=== PATIENT | male | born 1980 | race Caucasian/White ===

== ENCOUNTER → 2018-10-05 | Outpatient (CLI) | payer OTHER, SELFPAY ==
--- NOTE | 2018-10-05 | LES_PTH ---
PATIENT: VERÓNICA ALVARENGA [facility] U#:[id number] AGE/SX: 37/M ROOM: RE10/05/[address]: Dr. Juan Humphreys MD : 1980 BED: DIS: 10/05/2018 SPEC #: [id number] RECD: 10/05/18 16:33 STATUS: ADRI REMore #: [id number] AMEENA: 10/05/18 00:[address]: Juan Humphreys DEPT: SURGICAL PATHOLOGY RECD BY: Kar Rodriguez ENTERED: 10/06/18 10:21 SP TYPE: Lesion OTHR DR: No Primary Care Phys Tissues: Scalp, NOS Procedures: Surgery Specimen Level III HEADER OPERATION: Excision left scalp lesion PRE-OP DIAGNOSIS: Left scalp lesion TISSUE SUBMITTED: Left scalp tissue MICROSCOPIC DIAGNOSIS Left scalp tissue, biopsy: Trichilemmal cyst, pilar cyst. AM:yvette 10/07/18 MICROSCOPIC DESCRIPTION Slides are reviewed. GROSS DESCRIPTION Received in fixative is one container labeled with the patient's name and designated left scalp. The specimen consists of an ellipse of light mireles excised skin measuring 1.5 x 0.5 cm and a depth of excision measuring 0.6 cm. The specimen is inked, serially sectioned and totally submitted in one cassette. / AM:yvette 10/06/18 TC:1 CPT: 83407
[2018-10-05 13:31] VITALS: BMI 27.9
== END | disposition home or self-care (01) ==
LOC: LABSPEC 16:52
PROVIDERS: Referring Provider Surgery; Visit Provider Surgery
DX: L98.9 Disorder of the skin and subcutaneous tissue, unspecified (principal)
CPT/HCPCS: 88304; 88305

== ENCOUNTER 2021-02-03 12:32 | Emergency (ER) | payer OTHER, SELFPAY ==
[2021-02-03 12:33] VITALS: BP 151/95; PULSE 101; RESP 16; TEMP 36.4; O2SAT 95; BMI 26.6
[2021-02-03 14:27] VITALS: BP 154/76; PULSE 93; RESP 25; O2SAT 90
[2021-02-03 14:28] VITALS: RESP 28; O2SAT 92
--- NOTE | 2021-02-03 14:30 | RAD_ITS ---
STUDY: X-RAY CHEST REASON FOR EXAM: Male, 40 years old. Cough and fever. Decreased pulse oximetry. Recent Covid with the diagnosis. TECHNIQUE: Single AP portable view of the chest. COMPARISON: None. FINDINGS: EKG electrodes are seen. Patchy bibasilar pulmonary infiltrates. Follow-up is recommended. There is no demonstrated pleural abnormality. Normal size heart. Normal mediastinum and lukasz. Normal visualized pulmonary arteries. Normal visualized aortic arch and descending thoracic aorta. Normal visualized thoracic spine. Normal visualized ribs, clavicles, and shoulders. There is no demonstrated abnormality of the visualized soft tissue structures of the upper abdomen. RAD/Chest 1 View (Portable) IMPRESSION: Patchy bibasilar pulmonary infiltrates. Electronically Signed: Fito Price MD at 14:55 EDT , Service support ,
--- NOTE | 2021-02-03 15:34 | EX.ED.VIS.UR ---
HPI HPI - URI History of Present Illness Chief Complaint: Shortness of Breath Narrative Narrative: Patient on day 6 of Covid symptoms. He noted his pulse ox was 89% while resting at home. He does not have any chest pain and does not have shortness of breath. His highest fever was 101 ?F. This was a few days ago. He states he has no medical problems. He has some slight nausea but has been drinking a lot of fluids and is making urine. He has no abdominal pain. He has had a couple episodes of diarrhea. No urinary symptoms. ROS ROS ED Constitutional Constitutional ED: Reports fever(s); Denies chills or sweats Eyes Eyes: Denies blurry vision or diplopia ENT ENT ED: Denies rhinorrhea or sore throat Cardiovascular Cardiovascular: Denies chest pain or palpitations Respiratory/Chest Respiratory/Chest: Reports cough; Denies dyspnea, dyspnea on exertion or sputum Gastrointestinal Gastrointestinal: Reports diarrhea and nausea; Denies abdominal pain or vomiting Genitourinary Genitourinary ED: Denies dysuria or hematuria Musculoskeletal Musculoskeletal: Denies arthralgias or myalgias Integumentary Denies Abrasions or rash Neurologic Neurologic: Denies headache(s) or paresthesias PFSH PFSH Medical History Scalp cyst Skin lesion Home Medications NK 09/22/18 [History Last Taken Unknown] dexamethasone 6 mg PO DAILY #7 tab 02/03/21 [Rx Last Taken Unknown] ondansetron 4 mg PO Q8H PRN PRN #20 tab 02/03/21 [Rx Last Taken Unknown] Allergy/AdvReac Type Severity Reaction Status Date / Time No Known Allergies Allergy Verified 02/03/21 12:36 Family History Father Diabetes Surgical History History of wisdom tooth extraction Social History Smoking Status: Never smoker alcohol intake: current alcohol intake frequency: a few times a month substance use type: does not use EXAM Physical Exam Const Vital Signs: 02/03/21 12:33 02/03/21 14:27 02/03/21 14:28 Temperature 97.6 F L Temperature Source Temporal Pulse Rate 101 H 93 Respiratory Rate 16 25 H 28 H Respiratory Effort Short of Breath Labored Blood Pressure 151/95 H 154/76 H Blood Pressure Mean 113 102 Pulse Ox 95 90 92 Oxygen Delivery Method Room Air Room Air Room Air Positive well nourished General Appearance ED: NAD; Negative for pallor HEENT normocephalic and atraumatic Eyes PERRL and EOMs intact bilaterally Resp normal respiratory effort and clear to auscultation bilaterally Cardio Rate: tachycardic Rhythm: regular rhythm Extremity normal to inspection; Negative for full ROM General Extremety ED: Negative for cyanosis General Extremity: Negative for cyanosis Neuro oriented x3, CN's II-XII intact bilaterally and no sensory deficits noted Sensorium / Orientation: alert Motor Exam: strength 5/5 throughout Psych mental status grossly normal Skin General Skin Exam: Negative for jaundice or pallor Rashes: no rashes MDM MDM MDM Narrative Medical decision making narrative: Patient presenting with Covid symptoms. He states his pulse ox went down to 89 at home while resting. Today in the ED he has been mostly in the 90s. He had one episode while sitting in bed where he dropped to 88%. I did ambulate him at the bedside and he did drop to 88% after walking. He states that he is not short of breath even with ambulation. He is not have any chest pain. Patient is eating and drinking normally. I will place the patient on dexamethasone and given albuterol inhaler. He will be set up for home O2. Patient is given instructions for care and return precautions. Impression: 1. COVID-19 pneumonitis 2. Nausea 3. Hypoxia with ambulation Radiography Diagnostic Testing: Radiology Impression Chest X-Ray 02/03/21 14:30 IMPRESSION: Patchy bibasilar pulmonary infiltrates. Electronically Signed: Fito Price MD at 14:55 EDT , Service support , Discharge Plan Triage Chief Complaint: Shortness of Breath ED Provider: Roberto Carlson Dx/Rx/DC Orders Instructions: Coronavirus Disease 2019 (COVID-19): Caring for Yourself or Others Prescriptions: New ondansetron 4 mg tablet,disintegrating 4 mg PO Q8H PRN PRN (Reason: Nausea) Qty: 20 RF: 0 dexamethasone 6 mg tablet 6 mg PO DAILY Qty: 7 RF: 0 No Action NK RF: 0 Primary Care Provider: Stanislaw Cm Referrals: Stanislaw Cm MD [Primary Care Provider] - Disposition Disposition: Home, Self Care
[2021-02-03 16:00] VITALS: O2SAT 89
[2021-02-03] MEDS: Ondansetron ODT 4 MG Tablet PO (16:35)
[2021-02-03] MEDS: dexAMETHasone 4 MG Tablet 6 MG PO (16:35)
[2021-02-03 16:36] VITALS: O2SAT 94
--- NOTE | 2021-02-03 16:42 | CM.UR ---
LANETTE Note Referral Source: MD Referral Reason: Home Oxygen LANETTE completed [facility] Home oxygen script and necessary paperwork and faxed it to [facility]. MD signed it and completed oxygen levels. LANETTE called and left voice mail for Ayse at [facility]. Ayse said that [facility] will bring oxygen to the ED and 2 extra tanks. LANETTE updated RN. LANETTE sent email out advising of patient being new oxygen to hospital staff. Plan: Home with Oxygen Yuki CABEZAS
[2021-02-03 16:45] VITALS: O2SAT 93
--- NOTE | 2021-02-04 12:08 | CASEMGMT ---
RN KAVIN ED COVID Home O2 Follow-up: This RN CM attempted to contact pt via phone in follow-up to discharge with home O2. Non-identifying voicemail received. Nondescript message left requesting a return call. Brayden Clark RN CM
--- NOTE | 2021-02-04 12:19 | CASEMGMT ---
[facility] ED COVID Home O2 Follow-up: Pt returned this RN KAVIN's call. Pt states he is doing pretty well. Pt reports to be wearing the O2 and his PO to be 96%. Pt states he did increase it to 3-4l/min because his PO was reading lower, but states when he used a different PO monitor it was ok. Pt states he plans to turn it back to 2l/min. Pt denies any SOB but c/o a frequent cough especially with talking. Noted pt to have a frequent dry cough during our conversation. Pt states he is drinking well but that eating is difficult as he doesn't feel like eating and it is difficult to swallow harder foods. Pt states his made him a smoothy with protein and states to be able to tolerate jello, bananas and other soft foods. Pt states he has not been able to quarantine from his family due to their house being small. Pt states his daughter has already had COVID. Encouraged pt to wipe surfaces frequently and pt states he is washing his hands often also. Pt reports he did obtain his prescriptions but has not made his follow-up appointment with Dr. Rueda. Encouraged pt to do so and explained the importance of follow-up. Pt agreeable to calling to schedule an appointment. Pt denies any questions or concerns at this time. Brayden Clark RN CM
--- NOTE | 2021-02-05 15:09 | CASEMGMT ---
[facility] ED COVID Home O2 Follow-up: This [facility] contacted pt via phone for further follow-up. Pt states he is feeling much better as indicated by a decrease in his cough and ability to keep his PO 93-95% with the O2 nasal prongs not directly in his nose but just below his nose. Pt expressed a desire to wean himself off of the O2. Encouraged pt to keep his PO in the 90's. Pt states he is also decreasing the frequency of his albuterol treatments from q4h to q6h. States he continues to struggle to eat due to nausea. Encouraged pt to eat small frequent meals which he states he is doing and states he is currently sipping on a smoothie. Pt states he has called Dr. Cm's office and gave them an update on how he is doing but they did not schedule a follow-up appointment. Pt denies any current questions or concerns at this time. Brayden Clark RN CM
== END 2021-02-03 16:55 | disposition home or self-care (01) ==
PROVIDERS: Emergency Provider Student in an Organized Health Care Education/Training Program; PCP Family Medicine
DX: U07.1 COVID-19 (principal); J12.82 Pneumonia due to coronavirus disease 2019; R11.0 Nausea; R09.02 Hypoxemia
CPT/HCPCS: 71045; 94640; 94760; 99283; A4216; J2405

== ENCOUNTER 2021-02-06 10:47 | Inpatient (IN) | payer OTHER, SELFPAY ==
[2021-02-06] VITALS (23 sets, daily range): BP systolic 110–146; BP diastolic 75–101; PULSE 65–83; RESP 18–31; TEMP 36.4–37.4; O2SAT 84–98; BMI 29.4; BMI 27.2
--- NOTE | 2021-02-06 11:23 | EKG12_ITS ---
Test Reason : SOB Blood Pressure : / mmHG Vent. Rate : 079 BPM Atrial Rate : 079 BPM P-R Int : 158 ms QRS Dur : 094 ms QT Int : 390 ms P-R-T Axes : 034 059 056 degrees QTc Int : 447 ms Normal sinus rhythm Normal ECG Confirmed by UDAY WYATT, SAHIL ([id number]), senior technical editor LUANN PAGAN ([id number]) on 02/10/2021 7:58:20 AM Referred By: BB/RU Confirmed By:SAHIL FRYE MD
--- NOTE | 2021-02-06 11:24 | ED.VIS.DYS ---
HPI History of Present Illness Chief Complaint: Shortness of Breath Detail of Chief Complaint: Shortness of breath that worsened today Informant: patient Narrative Narrative: Patient presents to the emergency department with complaint of worsening shortness of breath today. Patient presents via EMS from home. Patient diagnosed with COVID-19 1 week ago and started with symptoms 9 days ago. Patient was seen in the emergency department 3 days ago and sent home with oxygen as well as steroids and albuterol. Patient states that on 4 L at home he had been running in the 90s on his pulse oximeter however today on 4 L he was in the low 80s. Patient also complains of pain with deep breath. Patient otherwise has no medical history. Patient is not immunized against COVID-19. Patient states he has not had a fever for the last 5 days. Cough is been nonproductive. [facility] Medical History (Updated 02/06/21 @ 12:[address] Fahad Morris DO) Scalp cyst Skin lesion Home Medications NK 09/22/18 [History Last Taken Unknown] dexamethasone 6 mg PO DAILY #7 tab 02/03/21 [Rx Last Taken Unknown] ondansetron 4 mg PO Q8H PRN PRN #20 tab 02/03/21 [Rx Last Taken Unknown] Allergy/AdvReac Type Severity Reaction Status Date / Time No Known Allergies Allergy Verified 02/06/21 10:47 Family History Father Diabetes Surgical History History of wisdom tooth extraction Social History Smoking Status: Never smoker alcohol intake: current alcohol intake frequency: a few times a month substance use type: does not use ROS ROS ED Constitutional Constitutional ED: Reports systems reviewed and no addt'l complaints, except as documented; Denies body ache(s), change in weight or chills Eyes Eyes: Denies acute decrease in peripheral vision, change in vision, double vision or loss of vision ENT ENT ED: Reports none; Denies lip swelling, loss taste/smell, neck pain, otalgia or sore throat Cardiovascular Cardiovascular: Reports none and chest pain; Denies abdominal pain, chest pain with activity, leg edema, lightheadedness, palpitations, rapid heart rate or syncope Respiratory/Chest Respiratory/Chest: Reports none, cough and dyspnea; Denies change in mental status, dry cough, hemoptysis, shortness of breath at rest, shortness of breath with exertion or sputum Gastrointestinal Gastrointestinal: Reports none; Denies abdominal pain, change in stool character, diarrhea, hematemesis, hematochezia, melena, rectal bleeding or vomiting Genitourinary Genitourinary ED: Reports none; Denies abdominal discomfort, anuria, dysuria, genital pain or polyuria Musculoskeletal Musculoskeletal: Reports none; Denies arthralgias, back pain, difficulty walking, extremity pain, muscle weakness or myalgias Integumentary Reports none; Denies abscess or rash Neurologic Neurologic: Reports none; Denies abnormal gait, confusion, focal weakness, frequent falls, headache(s), loss of vision, numbness, paresthesias, radicular pain, vertigo or weakness Psychiatric Psychiatric: Reports systems reviewed and no addt'l complaints, except as documented and none; Denies behavioral changes, confusion, difficulty concentrating, hallucinations, suicidal ideation, tactile hallucinations or visual hallucinations Endocrine Endocrinology: Denies none, cold intolerance, excessive sweating, fatigue or heat intolerance Hematologic/Lymphatic Hematologic/Lymphatic: Reports none; Denies anemia, easy bleeding or easy bruising Allergic/Immunologic Allergic/Immunologic ED: Denies as per HPI, none, lip swelling, mouth swelling, throat swelling, tongue swelling or hives EXAM Physical Exam Const Vital Signs: 02/06/21 10:48 02/06/21 10:54 02/06/21 11:51 Temperature 99.3 F H Temperature Source Oral Pulse Rate 80 78 Respiratory Rate 30 H 28 H Respiratory Effort Short of Breath Labored Respiratory Depth Normal Respiratory Pattern Tachypnea Blood Pressure 125/85 H 128/86 H Blood Pressure Mean 98 100 Pulse Ox 84 93 Oxygen Delivery Method Room Air Nasal Cannula Nasal Cannula Oxygen Flow Rate (L/min) 12 10 02/06/21 12:06 Temperature Temperature Source Pulse Rate 77 Respiratory Rate 28 H Respiratory Effort Respiratory Depth Respiratory Pattern Blood Pressure 146/101 H Blood Pressure Mean 116 Pulse Ox 92 Oxygen Delivery Method Nasal Cannula Oxygen Flow Rate (L/min) 10 Positive well nourished and well developed General Appearance ED: well developed and NAD HEENT Reports TM's clear and moist mucous membranes normocephalic and atraumatic; Negative for trauma or tenderness Tympanic Membrane ED: Yes TM's clear Eyes PERRL and EOMs intact bilaterally General Eye ED: Negative for pale conjunctiva or scleral icterus Neck no lymphadenopathy, supple and no JVD General: Negative for tenderness Chest Wall inspection of chest normal and palpation of chest normal Chest: Negative for tenderness Resp normal respiratory effort and clear to auscultation bilaterally Resp Narrative: Patient has some mild tachypnea. Patient has a faint expiratory wheezes bilaterally. No accessory muscle use or retractions noted. Effort and Inspection: Negative for respiratory distress or pain with movement Auscultation: Negative for rhonchi, wheezes or diminished lung sounds Cardio regular rate, regular rhythm, S1 normal heart sound, S2 normal heart sound and no murmurs Peripheral Pulses: pulses 2+ throughout GI normal to inspection, nondistended, normoactive bowel sounds, soft to palpation, non-tender, non-distended and no masses Back/Spine no CVA tenderness and no thoracic nor lumbar tenderness Extremity normal to inspection General Extremety ED: Negative for edema General Extremity: Negative for edema Neuro oriented x3, CN's II-XII intact bilaterally, no sensory deficits noted and gait normal Sensorium / Orientation: awake, alert, oriented to person, oriented to place and oriented to time Motor Exam: strength 5/5 throughout and strength abnormal Psych mental status grossly normal Skin no rashes or lesions noted and no wounds MDM MDM MDM Narrative Medical decision making narrative: Patient case will be discussed with hospitalist to evaluate patient for admission. Patient has worsening infiltrates on x-ray and increased oxygen demand. Lab Data Attestation: I reviewed the patient's lab results. Labs: Laboratory Results - last 24 hr 02/06/21 02/06/21 02/06/21 11:00 11:00 11:00 WBC 10.3 RBC 5.17 Hgb 13.9 Hct 42.6 MCV 82.4 MCH 26.9 L MCHC 32.6 RDW Std Deviation 39.6 RDW Coeff of Al 13.2 Plt Count 217 MPV 11.2 Immature Gran % (Auto) 1.000 H Neut % (Auto) 89.5 H Lymph % (Auto) 5.8 L Wise % (Auto) 3.6 Eos % (Auto) 0.0 Baso % (Auto) 0.1 Absolute Neuts (auto) 9.2 H Absolute Lymphs (auto) 0.59 L Nucleated RBC % 0 Differential Comment SCANNED D-Dimer Quant (PE/DVT) Sodium 137 Potassium 4.0 Chloride 102 Carbon Dioxide 27.0 Anion Gap 8 BUN 20 H Creatinine 0.96 Estim Creat Clear Calc 94.67 Est GFR (MDRD) Af Amer 111 Est GFR (MDRD) Non-Af 92 BUN/Creatinine Ratio 20.9 H Glucose 164 H Lactic Acid 1.9 Calcium 8.7 02/06/21 12:00 WBC RBC Hgb Hct MCV MCH MCHC RDW Std Deviation RDW Coeff of Al Plt Count MPV Immature Gran % (Auto) Neut % (Auto) Lymph % (Auto) Wise % (Auto) Eos % (Auto) Baso % (Auto) Absolute Neuts (auto) Absolute Lymphs (auto) Nucleated RBC % Differential Comment D-Dimer Quant (PE/DVT) 0.41 Sodium Potassium Chloride Carbon Dioxide Anion Gap BUN Creatinine Estim Creat Clear Calc Est GFR (MDRD) Af Amer Est GFR (MDRD) Non-Af BUN/Creatinine Ratio Glucose Lactic Acid Calcium Radiography Chest X-Ray - ED: 1 View Diagnostic Testing: Radiology Impression Chest X-Ray 02/06/21 11:48 IMPRESSION: Progressive bilateral pulmonary infiltrates worse in the left hemithorax. Electronically Signed: Fito Price MD at 12:09 EDT , Service support , 1 view chest x-ray obtained interpreted by myself as worsening bilateral infiltrates. Radiology in agreement. Discharge Plan Triage Chief Complaint: Shortness of Breath ED Provider: Fahad Morris Dx/Rx/DC Orders Clinical Impression: 2019 novel coronavirus-infected pneumonia (NCIP), Hypoxemia Prescriptions: No Action NK RF: 0 ondansetron 4 mg tablet,disintegrating 4 mg PO Q8H PRN PRN (Reason: Nausea) Qty: 20 RF: 0 dexamethasone 6 mg tablet 6 mg PO DAILY Qty: 7 RF: 0 Primary Care Provider: Stanislaw Cm Referrals: Stanislaw Cm MD [Primary Care Provider] - Disposition Disposition: [facility]
[2021-02-06 11:38] LABS: Absolute Lymphocyte Count 0.59 X10^3/uL (0.83-4.51); Absolute Neutrophil Count 9.2 X10^3/uL (2.0-7.7); Basophil# 0.01 X10^3/uL; Basophil% 0.1 % (0-1); Hematocrit 42.6 % (40-54); Hemoglobin 13.9 g/dL (13.0-16.5); Lymphocyte # 0.59 X10^3/ul (0.83-4.51); Lymphocyte % 5.8 % (19-41); Mean Corp Hgb Conc 32.6 g/dL (32-36); Mean Corpuscular Hgb 26.9 pg (27.0-32.0); Mean Corpuscular Volume 82.4 fL (80-94); Mean Platelet Vol. 11.2 fl (6.2-12.0); Monocyte# 0.37 X10^3/uL; Monocyte% 3.6 % (0-10); NRBC Flagged by Analyzer 0 % (0-5); Neutrophil # 9.18 X10^3/uL (2.7-7.7); Neutrophil % 89.5 % (47-70); POSITIVE DIFFERENTIAL YES; Platelet Count 217 K/mm3 (150-450); RBC Distribution Width CV 13.2 % (11.6-14.6); RBC Distribution Width SD 39.6 fl (35.1-43.9); Red Blood Count 5.17 M/mm3 (4.6-6.2); White Blood Count 10.3 K/mm3 (4.4-11.0)
[2021-02-06 11:43] LABS: Differential Indicated SCAN CRITERIA MET
[2021-02-06 11:45] LABS: Anion Gap 8 (5-15); BUN 20 mg/dL (7-18); BUN/Creat Ratio 20.9 RATIO (10-20); Calcium,Total 8.7 mg/dL (8.5-10.1); Chloride 102 mmol/L (98-107); Creatinine, Serum 0.96 mg/dL (0.70-1.30); EST Glomerular Filtration Rate 92 mL/min (>60); Est Glom Filt Rate - Afr Amer 111 mL/min (>60); Estimated Creatinine Clearance 94.67 ml/min; Glucose 164 mg/dL (74-106); Sodium Level 137 mmol/L (136-145)
--- NOTE | 2021-02-06 11:48 | RAD_ITS ---
STUDY: X-RAY CHEST REASON FOR EXAM: Male, 40 years old. DYSPNEA.Covid positive. TECHNIQUE: Single AP portable view of the chest. COMPARISON: Comparison is made with prior study 02/03/2021. FINDINGS: EKG electrodes are seen. Since prior study, there has been progressive bilateral pulmonary infiltrates worse in the left hemithorax. There is no demonstrated pleural abnormality. Normal size heart. Normal mediastinum and lukasz. Normal visualized pulmonary arteries. Normal visualized aortic arch and descending thoracic aorta. Normal visualized thoracic spine. Normal visualized ribs, clavicles, and shoulders. There is no demonstrated abnormality of the visualized soft tissue structures of the upper abdomen. RAD/Chest 1 View (Portable) IMPRESSION: Progressive bilateral pulmonary infiltrates worse in the left hemithorax. Electronically Signed: Fito Price MD at 12:09 EDT , Service support ,
[2021-02-06] MEDS: 0.9% Normal Saline 1,000 ML 150 ML IV (11:53)
[2021-02-06 11:57] LABS: Lactic Acid 1.9 mmol/L (0.4-1.9)
[2021-02-06 12:16] LABS: Differential Comment SCANNED
[2021-02-06 12:23] LABS: D-Dimer Quantitative (DVT/PE) 0.41 FEU/ug/m (0.27-0.49)
--- NOTE | 2021-02-06 15:15 | CON.PCM.CC_ITS ---
Assessment & Plan Assessment/Plan (1) Acute respiratory failure with hypoxia: (2) 2019 novel coronavirus-infected pneumonia (NCIP): PLAN: RECOMMENDATIONS: 1. Consult ID for possible VENTURA therapy 2. Agree with Decadron and Remdesivir. Monitor renal and liver function daily 3. Wean oxygen as tolerated. Advancement Airvo if necessary 4. Twice daily Lovenox dosing given normal D-dimer 5. Add zinc, vitamin C and scheduled mucolytic 6. Potentially add codeine if patient becomes BiPAP dependent 7. Encourage Acapella, incentive spirometer and prone positioning as tolerated 8. Obtain sputum sample to rule out superinfection with bacteria IMPRESSIONS: 1. Acute hypoxic respiratory failure secondary to COVID-19 pneumonia Patient on significant nasal cannula oxygen at this time. Clinical suspicion for rapid deterioration. Infectious disease will be consulted for evaluation for VENTURA therapy. Patient is unvaccinated, so clinical course can be worsened. Patient is appropriately on Decadron and Remdesivir. Will place patient on vitamin C, zinc and schedule mucolytic. If patient requires BiPAP therapy continuously, could consider codeine to avoid pneumomediastinum. Agree with sputum to rule out secondary bacterial infection. 2. Unvaccinated status Complicates care, management, recovery and prognosis. No reported underlying comorbidities such as asthma may prove helpful in prognosis HPI Consult Data Date of Consult: 02/06/21 HPI Narrative HPI Narrative: VERÓNICA ALVARENGA is a 40 M, with a past medical history significant for seasonal allergies, who presents to [facility] on 02/06/2021 secondary to shortness of breath and hypoxia. Patient was diagnosed with COVID-19 approximately a week ago and has had symptoms for 9 days. Patient had presented to the emergency department 3 days ago and was sent home on oxygen, steroids and albuterol. Patient was deemed not appropriate for monoclonal antibody. At home, patient started to have worsening shortness of breath and worsening saturations, so called EMS for evaluation. Patient has reported a cough that is nonproductive and noticed fever subsided approximately 5 days ago. In the ER, patient was afebrile, but tachypneic at 30 breaths/min. Patient was normotensive, but saturating only 84% on room air. Patient required 12 to 14 L/min to maintain appropriate saturations. Labs showed an unremarkable CBC and BMP, except for an elevated glucose of 164. Patient's lactate was within normal limits at 1.9 and D-dimer was normal at 0.4. Chest x-ray showed significant worsening in bilateral infiltrates with elevation of bilateral hemidiaphragms. Given concerns for rapidity of decompensation, patient was placed in the intensive care unit. Patient does report a history of seasonal allergies, but this is not associated with any asthma. Patient states he has never used inhaler before. Patient has never been a smoker. Patient does report social drinking, but denies illicit drugs. Patient denies any occupational exposures. Patient is with 3 young girls aged 9, 7 and 3. Extensive conversation with the patient and he is willing to do what ever it takes. Patient states he did not receive a COVID- 19 vaccination because I do not trust it. Patient has had some nausea, but no vomiting. Review of systems otherwise negative from a constitutional, HEENT, respiratory, cardiovascular, GI, genitourinary, musculoskeletal, skin, neurologic, psychiatric and hematologic system unless stated above. [facility] Medical History (Updated 02/06/21 @ 12:[address] Kristen Mendoza DO) Scalp cyst Skin lesion Home Medications dexamethasone 6 mg PO DAILY #7 tab 02/03/21 [Rx Last Taken 02/06/21] ondansetron 4 mg PO Q8H PRN PRN #20 tab 02/03/21 [Rx Last Taken Unknown] Allergy/AdvReac Type Severity Reaction Status Date / Time No Known Allergies Allergy Verified 02/06/21 10:47 Family History Father Diabetes Surgical History History of wisdom tooth extraction Social History Smoking Status: Never smoker alcohol intake: current alcohol intake frequency: a few times a month substance use type: does not use ROS ROS Narrative See HPI Physical Exam Const alert and oriented x3 General Appearance: cooperative, well developed, in distress Positive for moderate, anxious and ill appearing HEENT normocephalic, head/scalp atraumatic and moist oral mucous membranes Eyes PERRL and EOMs intact bilaterally Neck full ROM and no lymphadenopathy Chest inspection of chest normal Chest: symmetrical chest wall rise; Negative for crepitus Resp Effort and Inspection: respiratory distress and actively coughing non-productive and strong; Negative for pursed lip breathing Auscultation: diminished lung sounds; Negative for rales, rhonchi or wheezes Percussion: Negative for dullness Cardio regular rate, regular rhythm, S1 normal heart sound, S2 normal heart sound, no murmurs, no rub and no gallops GI normal to inspection, nondistended, normoactive bowel sounds no CVA tenderness Extremity no clubbing, cyanosis or edema Skin no rashes or lesions noted Neuro oriented x3, CN's II-XII intact bilaterally, moves all extremities and no focal motor deficits Psych cooperative and affect normal Lab / Micro Data Result Diagrams: 02/06/21 11:00 02/06/21 11:00 Labs: Laboratory Results - last 24 hr 02/06/21 11:00: WBC 10.3, RBC 5.17, Hgb 13.9, Hct 42.6, MCV 82.4, MCH 26.9 L, MCHC 32.6, RDW Std Deviation 39.6, RDW Coeff of Al 13.2, Plt Count 217, MPV 11.2, Immature Gran % (Auto) 1.000 H, Neut % (Auto) 89.5 H, Lymph % (Auto) 5.8 L , [place] % (Auto) 3.6, Eos % (Auto) 0.0, Baso % (Auto) 0.1, Absolute Neuts (auto) 9.2 H, Absolute Lymphs (auto) 0.59 L, Nucleated RBC % 0, Differential Comment SCANNED 02/06/21 11:00: Sodium 137, Potassium 4.0, Chloride 102, Carbon Dioxide 27.0, Anion Gap 8, BUN 20 H, Creatinine 0.96, Estim Creat Clear Calc 94.67, Est GFR (MDRD) Af Amer 111, Est GFR (MDRD) Non-Af 92, BUN/Creatinine Ratio 20.9 H, Glucose 164 H, Calcium 8.7 02/06/21 11:00: Lactic Acid 1.9 02/06/21 12:00: D-Dimer Quant (PE/DVT) 0.41 Radiology Impression Chest X-Ray 02/06/21 11:48 IMPRESSION: Progressive bilateral pulmonary infiltrates worse in the left hemithorax. Electronically Signed: Fito Price MD at 12:09 EDT , Service support , Charges/Coding Visit Charges Inpatient E&M: 76371 Init Hosp L3
[2021-02-06] MEDS: 0.9% Saline Lock 10 ML Syringe IV (15:37)
--- NOTE | 2021-02-06 16:20 | PCS.PANDOC ---
PANDEMIC DOCUMENTATION INITIATED: Date: 12/23/2020 Time: 190
--- NOTE | 2021-02-06 16:21 | CHAPLAIN ---
Type of Pastoral Visit ___ Initial Visit ___ Follow-up Visit ___ On-call Visit ___ General Patient Visit ___ Spiritual Assessment ___ Family Conference ___ Bereavement ___ Rapid Response ___ Code Blue _x__ Other (describe below) Pastoral Care Referral From _x__ Patient ___ Family ___ Nurse ___ Physician ___ Marine Engine Driver ___ Superintendent Transmission ___ Other (describe below) Sacrament/Intervention _x__ Active listening ___ Anointing ___ Hindu ___ Bereavement ___ Communion ___ Martita exploration ___ ___ Life review _x__ Prayer ___ Reconciliation ___ Sacrament of Sick ___ Supportive presence ___ Wedding ___ Other (describe below) Pastoral Comments phone call made into isolation room; pt answers the phone and welcomes spiritual support and prayer; pt presents with good outlook and states many people are praying for me; pt has a local congregation for support as well
[2021-02-06] MEDS: guaiFENesin 1,200 MG Tablet 1200 MG PO (16:32)
[2021-02-06] MEDS: Ascorbic Acid 500 MG Tablet 1000 MG PO (16:32)
--- NOTE | 2021-02-06 16:35 | HP.PCM.HOS_ITS ---
HPI - General General Date of Admission: 02/06/21 HPI Narrative VERÓNICA ALVARENGA, is a 40 M who presented to the emergency department at [facility] on 02/06/2021 with shortness of breath that has been worsening today. The patient initially presented to the emergency department on Wednesday of this week and was diagnosed with COVID-19. His symptoms started 9 days before presentation today. On Wednesday he was sent home with oxygen as well as steroids and albuterol and had been doing well on 4 L running in the 90s per his pulse oximeter but today he was in the low 80s so he represented to the emergency department. He was also complaining with pain and coughing with deep breathing. He had not been immunized against COVID-19. He states other than his cough some mild pain in his dyspnea with hypoxia and he is asymptomatic at this time. He had other symptoms previously but they have since resolved. In the emergency department 84% on room air and was placed on 10 L nasal cannula which increased his oxygen saturation to 90 to 93%. His vital signs were otherwise stable and he was afebrile. His CBC was overall unremarkable. A D-dimer was obtained and was negative. His BMP was unremarkable. He had normal lactic acid. Chest x- ray showed bilateral patchy groundglass infiltrates. He was admitted to the intensive care unit for further treatment [facility] Medical History Scalp cyst Skin lesion Home Medications dexamethasone 6 mg PO DAILY #7 tab 02/03/21 [Rx Last Taken 02/06/21] ondansetron 4 mg PO Q8H PRN PRN #20 tab 02/03/21 [Rx Last Taken Unknown] Allergy/AdvReac Type Severity Reaction Status Date / Time No Known Allergies Allergy Verified 02/06/21 10:47 Family History Father Diabetes Surgical History History of wisdom tooth extraction Social History Smoking Status: Never smoker alcohol intake: current alcohol intake frequency: a few times a month substance use type: does not use ROS Constitutional Constitutional: Reports fatigue and malaise; Denies anorexia, change in weight, chills, fever(s), night sweats, weakness or other Eyes Eyes: Denies blurry vision, change in eye color, change in vision, discharge from eye(s), double vision, erythema, eye pain, loss of vision or other ENT HEENT: Denies abnormal hearing, dysphagia, ear pain, epistaxis, headache(s), hearing loss, nasal congestion, nasal discharge, post nasal drip, sinus pressure, sore throat or other Cardiovascular Cardiovascular: Reports dyspnea on exertion; Denies chest pain, claudication, edema, lightheadedness, orthopnea, palpitations, paroxysmal nocturnal dyspnea, rapid heart rate, syncope or other Respiratory/Chest Respiratory/Chest: Reports cough, dyspnea, shortness of breath at rest and shortness of breath with exertion; Denies excessive phlegm production, hemoptysis, productive cough, wheezing or other Gastrointestinal Gastrointestinal: Denies abdominal pain, coffee ground emesis, constipation, diarrhea, dyspepsia, hematemesis, hematochezia, loose stools, melena, nausea, vomiting or other Genitourinary Genitourinary: Denies burning urination, difficulty urinating, dysuria, hematuria, nocturia, urinary frequency, urinary hesitancy, urinary incontinence, urinary urgency or other Musculoskeletal Musculoskeletal: Denies arthralgias, back pain, joint pain, joint stiffness, joint swelling, myalgias, neck pain or other Neurologic Neurologic: Denies abnormal gait, abnormal speech, confusion, disequilibrium, dizziness, focal weakness, headache(s), numbness, paresthesias, seizure-like ac tivity, seizures, syncope, tingling, tremor(s) or other Psychiatric Psychiatric: Denies anxiety, depression, homicidal ideation, suicidal ideation or other Endocrine Endocrinology: Denies change in body appearance, cold intolerance, excessive sweating, heat intolerance, polydipsia, polyuria or other Hematologic/Lymphatic Hematologic/Lymphatic: Denies anemia, easy bleeding, easy bruising, lymphadenopathy or other Allergic/Immunologic Allergic/Immunologic: Denies rhinitis, hives, eczemia, asthma or other Vital Signs Vital Signs Vital Signs: 02/06/21 10:48 02/06/21 10:54 02/06/21 11:51 Temperature 99.3 F H Temperature Source Oral Pulse Rate 80 78 Respiratory Rate 30 H 28 H Respiratory Effort Short of Breath Labored Respiratory Depth Normal Respiratory Pattern Tachypnea Blood Pressure 125/85 H 128/86 H Blood Pressure Mean 98 100 Blood Pressure Source Blood Pressure Position Blood Pressure Location Pulse Ox 84 93 Oxygen Delivery Method Room Air Nasal Cannula Nasal Cannula Oxygen Flow Rate (L/min) 12 10 02/06/21 12:06 02/06/21 13:08 02/06/21 14:00 Temperature 99.3 F H Temperature Source Oral Pulse Rate 77 82 83 Respiratory Rate 28 H 29 H 18 Respiratory Effort Respiratory Depth Respiratory Pattern Blood Pressure 146/101 H 132/87 H 132/87 H Blood Pressure Mean 116 102 102 Blood Pressure Source Blood Pressure Position Blood Pressure Location Pulse Ox 92 91 90 Oxygen Delivery Method Nasal Cannula Nasal Cannula Nasal Cannula Oxygen Flow Rate (L/min) 10 10 12 02/06/21 14:23 02/06/21 14:28 02/06/21 14:30 Temperature 97.6 F L Temperature Source Temporal Pulse Rate 73 74 76 Respiratory Rate 29 H 29 H Respiratory Effort Respiratory Depth Respiratory Pattern Blood Pressure 127/82 H 127/85 H Blood Pressure Mean 97 99 Blood Pressure Source Monitor Monitor Blood Pressure Position Semi-Fowlers Semi-Fowlers Blood Pressure Location Right Arm Right Arm Pulse Ox 94 95 Oxygen Delivery Method Nasal Cannula Nasal Cannula Oxygen Flow Rate (L/min) 15 15 02/06/21 14:45 02/06/21 15:13 02/06/21 15:30 Temperature Temperature Source Pulse Rate 77 Respiratory Rate 28 H Respiratory Effort Non-Labored Short of Breath Respiratory Depth Shallow Respiratory Pattern Tachypnea Blood Pressure 129/88 H Blood Pressure Mean 101 Blood Pressure Source Monitor Blood Pressure Position Semi-Fowlers Blood Pressure Location Right Arm Pulse Ox 93 91 Oxygen Delivery Method Nasal Cannula Nasal Cannula Nasal Cannula Oxygen Flow Rate (L/min) 15 15 15 02/06/21 16:00 Temperature Temperature Source Pulse Rate 72 Respiratory Rate Respiratory Effort Respiratory Depth Respiratory Pattern Blood Pressure Blood Pressure Mean Blood Pressure Source Blood Pressure Position Blood Pressure Location Pulse Ox Oxygen Delivery Method Oxygen Flow Rate (L/min) Weight Weight: 81.2 kg Body Mass Index (BMI) 27.2 Physical Exam Const alert, oriented x3 and no apparent distress Constitutional Narrative: Overweight, middle-aged white male sitting up in bed, appears comfortable, nontoxic, currently on heated high flow nasal cannula at 15 L General Appearance: cooperative HEENT normocephalic, head/scalp atraumatic, hearing grossly normal bilaterally and moist oral mucous membranes HEENT Narrative: Mallampati 2, no thrush, good dentition Eyes PERRL, EOMs intact bilaterally and conjunctivae normal Neck no lymphadenopathy, supple and no JVD Neck Narrative: Trachea midline, no thyroid enlargement or nodules noted Resp no retractions and no use of accessory muscles Resp Narrative: Few scattered crackles and high-pitched wheezing with inspira tion and expiration, mild tachypnea but no signs of extremis Auscultation: crackles and wheezes; Negative for rales or rhonchi Cardio regular rate, regular rhythm, S1 normal heart sound, S2 normal heart sound, no murmurs, no rub, no gallops, no clicks and no JVD GI normal to inspection, nondistended, normoactive bowel sounds, soft to palpation, non-tender and non-distended Extremity no clubbing, cyanosis or edema Peripheral Pulses: Yes pulses 2+ throughout Skin no rashes or lesions noted, no wounds, skin turgor normal, no jaundice, no petechiae and no mottling Neuro oriented x3, CN's II-XII intact bilaterally, moves all extremities and no focal motor deficits Sensorium / Orientation: awake and alert Speech: speech normal Psych affect normal Results Lab / Micro Data Attestation: I reviewed the patient's lab results. Result Diagrams: 02/06/21 11:00 02/06/21 11:00 Labs: Laboratory Results - last 24 hr 02/06/21 11:00: WBC 10.3, RBC 5.17, Hgb 13.9, Hct 42.6, MCV 82.4, MCH 26.9 L, MCHC 32.6, RDW Std Deviation 39.6, RDW Coeff of Al 13.2, Plt Count 217, MPV 11.2, Immature Gran % (Auto) 1.000 H, Neut % (Auto) 89.5 H, Lymph % (Auto) 5.8 L , [place] % (Auto) 3.6, Eos % (Auto) 0.0, Baso % (Auto) 0.1, Absolute Neuts (auto) 9.2 H, Absolute Lymphs (auto) 0.59 L, Nucleated RBC % 0, Differential Comment SCANNED 02/06/21 11:00: Sodium 137, Potassium 4.0, Chloride 102, Carbon Dioxide 27.0, Anion Gap 8, BUN 20 H, Creatinine 0.96, Estim Creat Clear Calc 94.67, Est GFR (MDRD) Af Amer 111, Est GFR (MDRD) Non-Af 92, BUN/Creatinine Ratio 20.9 H, Glucose 164 H, Calcium 8.7 02/06/21 11:00: Lactic Acid 1.9 02/06/21 12:00: D-Dimer Quant (PE/DVT) 0.41 Radiology Impression Chest X-Ray 02/06/21 11:48 IMPRESSION: Progressive bilateral pulmonary infiltrates worse in the left hemithorax. Electronically Signed: Fito Price MD at 12:09 EDT , Service support , Assessment & Plan Assessment/Plan (1) Acute respiratory failure with hypoxia: (2) 2019 novel coronavirus-infected pneumonia (NCIP): PLAN: Acute hypoxic respiratory failure secondary to COVID-19 pneumonia -Continue supplemental oxygen and titrate as needed to keep sats greater than 92% -Start remdesivir day 1 of 5 -Daily CBC and CMP ordered -Start Decadron day 1 of 10 -Check MRSA PCR -Check urine strep pneumo and Legionella antigens -Sputum culture if able -I-S/Acapella -Prone positioning -Ambulation and out of bed -DVT prophylaxis with 40 mg Lovenox twice daily -Patient is high risk for decompensation and need for intubation -Pulmonary consultation Hyperglycemia -Steroid-induced -Monitor -Start sliding scale Accu-Cheks if blood sugars are consistently greater than 180 Overweight -Complicates treatment, prognosis, and outcomes DVT prophylaxis -Lovenox 40 mg twice daily CODE STATUS -Full code Charges/Coding Visit Charges Inpatient E&M: 14088 Init Hosp L3
[2021-02-06 16:45] LABS: M R Staph aureus DNA By PCR Negative (Negative); Probe Check PASS; Specimen Processing Control PASS
[2021-02-06] MEDS: MELATONIN 3 MG TABLET 6 MG PO (21:30)
[2021-02-06] MEDS: Enoxaparin 40 MG/0.4 ML Syringe SC (21:31)
[2021-02-07] VITALS (31 sets, daily range): BP systolic 100–135; BP diastolic 64–94; PULSE 60–99; RESP 21–36; TEMP 36.2–37; O2SAT 87–98
[2021-02-07 03:32] LABS: Hematocrit 43.1 % (40-54); Hemoglobin 14.3 g/dL (13.0-16.5); Mean Corp Hgb Conc 33.2 g/dL (32-36); Mean Corpuscular Hgb 27.5 pg (27.0-32.0); Mean Corpuscular Volume 82.9 fL (80-94); Mean Platelet Vol. 11.1 fl (6.2-12.0); Platelet Count 276 K/mm3 (150-450); RBC Distribution Width CV 13.3 % (11.6-14.6); RBC Distribution Width SD 40.4 fl (35.1-43.9); White Blood Count 11.3 K/mm3 (4.4-11.0)
[2021-02-07 03:54] LABS: ALB/GLOB Ratio 0.6 RATIO (0.9-2.4); AST(SGOT) 82 U/L (15-37); Alanine Aminotransfer ALT/SGPT 251 U/L (16-61); Alkaline Phosphatase 40 U/L (45-117); Anion Gap 9 (5-15); BUN 20 mg/dL (7-18); BUN/Creat Ratio 21.5 RATIO (10-20); Chloride 102 mmol/L (98-107); Creatinine, Serum 0.93 mg/dL (0.70-1.30); EST Glomerular Filtration Rate 95 mL/min (>60); Est Glom Filt Rate - Afr Amer 115 mL/min (>60); Estimated Creatinine Clearance 101.13 ml/min; Globulin 4.9 g/dL (2.2-4.2); Glucose 111 mg/dL (74-106); Magnesium 2.7 mg/dL (1.6-2.6); Phosphorus 4.2 mg/dL (2.5-4.9); Potassium 4.3 mmol/L (3.5-5.1); Protein, Total 7.9 g/dL (6.4-8.2); Sodium Level 136 mmol/L (136-145)
--- NOTE | 2021-02-07 07:19 | PCM.PN.INT ---
Assessment & Plan Assessment/Plan (1) Acute respiratory failure with hypoxia: (2) 2019 novel coronavirus-infected pneumonia (NCIP): PLAN: RECOMMENDATIONS: 1. Okay to continue with remdesivir for now, but may need discontinued pending liver function 2. Agree with Decadron and Remdesivir. Monitor renal and liver function daily 3. Wean oxygen as tolerated. Advancement Airvo if necessary 4. Twice daily Lovenox dosing given normal D-dimer 5. Continue zinc, vitamin C and scheduled mucolytic 6. Potentially add codeine if patient becomes BiPAP dependent 7. Encourage Acapella, incentive spirometer and prone positioning as tolerated IMPRESSIONS: 1. Acute hypoxic respiratory failure secondary to COVID-19 pneumonia Patient on significant nasal cannula oxygen at this time. Clinical suspicion for rapid deterioration. Infectious disease has yet to see the patient. Patient has had some increase in liver function studies. Likely not necessary to discontinue Remdesivir at this point, but will watch closely. Patient is unvaccinated, so clinical course can be worsened. Will continue patient on vitamin C, zinc and schedule mucolytic. If patient requires BiPAP therapy continuously, could consider codeine to avoid pneumomediastinum. Agree with sputum to rule out secondary bacterial infection. Hold on antibiotics for now. Antigen testing was unremarkable. 2. Unvaccinated status Complicates care, management, recovery and prognosis. No reported underlying comorbidities such as asthma may prove helpful in prognosis Subjective Subjective Patient did okay overnight. Patient reports a waxing and waning subjective course. Patient has been able to tolerate nasal cannula oxygen throughout the evening. No epistaxis has been reported. Objective Data Objective Data Vital Signs: Vital Signs Temp Pulse Resp BP Pulse Ox 37.0 C 67 25 H 130/80 H 92 02/07/21 00:00 02/07/21 07:00 02/07/21 07:00 02/07/21 07:00 02/07/21 07:00 Oxygen Flow Rate (L/min) 15 Oxygen Delivery Method Nasal Cannula Weight: 81.6 kg Body Mass Index (BMI) 27.2 Intake & Output: Intake and Output for Last 24 Hours 02/05/21 02/06/21 02/07/21 23:59 23:59 23:59 Intake Total 865.75 / 873.75 Output Total 850 / 850 550 / 550 Balance 15.75 / 23.75 -530 / -530 Lab / Micro Data Result Diagrams: 02/07/21 03:10 02/07/21 03:10 Labs: Laboratory Results - last 24 hr 02/06/21 11:00: WBC 10.3, RBC 5.17, Hgb 13.9, Hct 42.6, MCV 82.4, MCH 26.9 L, MCHC 32.6, RDW Std Deviation 39.6, RDW Coeff of Al 13.2, Plt Count 217, MPV 11.2, Immature Gran % (Auto) 1.000 H, Neut % (Auto) 89.5 H, Lymph % (Auto) 5.8 L, [place] % (Auto) 3.6, Eos % (Auto) 0.0, Baso % (Auto) 0.1, Absolute Neuts (auto) 9.2 H, Absolute Lymphs (auto) 0.59 L, Nucleated RBC % 0, Differential Comment SCANNED 02/06/21 11:00: Sodium 137, Potassium 4.0, Chloride 102, Carbon Dioxide 27.0, Anion Gap 8, BUN 20 H, Creatinine 0.96, Estim Creat Clear Calc 94.67, Est GFR (MDRD) Af Amer 111, Est GFR (MDRD) Non-Af 92, BUN/Creatinine Ratio 20.9 H, Glucose 164 H, Calcium 8.7 02/06/21 11:00: Lactic Acid 1.9 02/06/21 12:00: D-Dimer Quant (PE/DVT) 0.41 02/06/21 14:25: MRSA (PCR) Negative 02/07/21 03:10: WBC 11.3 H, RBC 5.20, Hgb 14.3, Hct 43.1, MCV 82.9, MCH 27.5, MCHC 33.2, RDW Std Deviation 40.4, RDW Coeff of Al 13.3, Plt Count 276, MPV 11.1 02/07/21 03:10: Sodium 136, Potassium 4.3, Chloride 102, Carbon Dioxide 25.0, Anion Gap 9, BUN 20 H, Creatinine 0.93, Estim Creat Clear Calc 101.13, Est GFR (MDRD) Af Amer 115, Est GFR (MDRD) Non-Af 95, BUN/Creatinine Ratio 21.5 H, Glucose 111 H, Calcium 9.0, Phosphorus 4.2, Magnesium 2.7 H, Total Bilirubin 0.90, AST 82 H, ALT 251 H, Alkaline Phosphatase 40 L, Total Protein 7.9, Albumin 3.0 L, Globulin 4.9 H, Albumin/Globulin Ratio 0.6 L Micro: Microbiology 02/06/21 16:10 Urine, Clean Catch Legionella Antigen - Final 02/06/21 16:10 Urine, Random Streptococcus pneumoniae Antigen (M - Final Radiography Diagnostic Testing: Radiology Impression Chest X-Ray 02/06/21 11:48 IMPRESSION: Progressive bilateral pulmonary infiltrates worse in the left hemithorax. Electronically Signed: Fito Price MD at 12:09 EDT , Service support , Physical Exam Const alert and oriented x3 General Appearance: cooperative, well developed, in distress Positive for moderate, anxious and ill appearing HEENT normocephalic, head/scalp atraumatic and moist oral mucous membranes Eyes PERRL and EOMs intact bilaterally Neck full ROM and no lymphadenopathy Chest inspection of chest normal Chest: symmetrical chest wall rise; Negative for crepitus Resp Effort and Inspection: respiratory distress and actively coughing non-productive and strong; Negative for pursed lip breathing Auscultation: diminished lung sounds; Negative for rales, rhonchi or wheezes Percussion: Negative for dullness Cardio regular rate, regular rhythm, S1 normal heart sound, S2 normal heart sound, no murmurs, no rub and no gallops GI normal to inspection, nondistended, normoactive bowel sounds no CVA tenderness Extremity no clubbing, cyanosis or edema Skin no rashes or lesions noted Neuro oriented x3, CN's II-XII intact bilaterally, moves all extremities and no focal motor deficits Psych cooperative and affect normal Charges/Coding Visit Charges Inpatient E&M: 35149 Subs Hosp L3
[2021-02-07] MEDS: Acetaminophen 325 MG Tablet 650 MG PO ×2 (10:07→21:42)
[2021-02-07] MEDS: Ascorbic Acid 500 MG Tablet 1000 MG PO (10:08)
[2021-02-07] MEDS: dexAMETHasone 4 MG Tablet 6 MG PO (10:08)
[2021-02-07] MEDS: guaiFENesin 1,200 MG Tablet 1200 MG PO (10:08)
[2021-02-07] MEDS: Enoxaparin 40 MG/0.4 ML Syringe SC ×2 (10:09→21:43)
[2021-02-07] MEDS: 0.9% Saline Lock 10 ML Syringe IV ×2 (10:09→21:43)
--- NOTE | 2021-02-07 11:48 | CASEMGMT ---
Social Work SW met with pt and introduced self and role of SW. Pt openly able to express feelings and stating that he is sad and lonely. Pt becoming tearful throughout conversation. Pt unable to sleep last night which is contributing to decline in mood. Pt is forward thinking, discussing plans that he and his have for the future and his desire to get home to his and three young daughters. Emotional support provided and encouraged pt to continue interacting with family on phone. Pt states that his tyesha is important to him and that his tow motor operator has been supportive. Pt notified that a glue sprayer is available and pt states he did speak with him yesterday. SW will continue to remain available for support. INGRID Marquis
--- NOTE | 2021-02-07 13:00 | CASEMGMT ---
RN CM OPTIONS ADVISOR CM to room to meet with patient for initial transition planning/care coordination assessment. ROMAN VALE introduced self and role at [facility]. Pt voices understanding and consents to assessment at this time. Pt sitting up in chair in room in no distress at this time. Pt is A/O at this time and answers all questions appropriately. Care providers, pharmacy, and demographics verified/updated at this time. COVID testing was done @ [facility] in [facility]. PCP: Dr Cm Specialists: performance instructor Preferred Pharmacy: [facility] Retail pharmacy Insurance: MMO Prescription Benefit: Yes Living Will/HPOA: Has both LW and HPOA, who is his , Corina. LNOK: , Corina. Living Arrangements: Lives w/ and 3 children (ages 9,7, and 2) in one-story home w/2 steps to enter. Independent. is +COVID also, but pt states is not as ill. 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 Transportation: Pt states drives self and states no transportation concerns at this time. also drives DME: Has the following DME: O2 thru [employer] @ 2 l/m, pulse ox. Pt states his can bring in portable O2 tank @ discharge to go home on. Pt states no need for further DME at this time. HHC/SNF: No hx of either. No needs identified. Pt wishes to return home and states has no concerns with going home at time of discharge. CM to follow for any increaes in home oxygen needs and any further discharge planning/needs. Pt voices no further concerns/needs at this time. Advised pt to ask for CM if any further questions/concerns/needs arise. Voices understanding. PLAN: Home CM to follow for any increase in Oxygen needs @ discharge. Matt MURILLO RN, CM
--- NOTE | 2021-02-07 14:10 | PCM.CONS.GEN ---
Assessment & Plan Assessment/Plan (1) 2019 novel coronavirus-infected pneumonia (NCIP): PLAN: Covid symptoms started around 01/28/21. Unvaccinated. Isolate for 20 days starting from 01/28. Recommended vaccine once out of iso. is covid (+) and at bedside, recommended she go home and isolate. On dex, remdesivir, baricitinib. On airvo. Will monitor labs. Will follow, thank you, d/w nursing and Dr. Hdz (2) Acute respiratory failure with hypoxia: HPI Consult Data Date of Consult: 02/07/21 HPI Narrative HPI Narrative: VERÓNICA ALVARENGA, is a 40 M who presented to ED 02/03 and 02/06 with symptoms starting 01/28. Unvaccinated. Daughter was first one sick. He c/o fever, chills, cough, dyspnea, fatigue. at bedside reports she had aches 5 days ago, tested (+) yesterday for covid. He was admitted, started on dex, remdesivir, and baricitinib. Feeling a little better today. Full ROS performed and neg except as noted above. [facility] Medical History Scalp cyst Skin lesion Home Medications dexamethasone 6 mg PO DAILY #7 tab 02/03/21 [Rx Last Taken 02/06/21] ondansetron 4 mg PO Q8H PRN PRN #20 tab 02/03/21 [Rx Last Taken Unknown] Allergy/AdvReac Type Severity Reaction Status Date / Time No Known Allergies Allergy Verified 02/06/21 10:47 Family History Father Diabetes Surgical History History of wisdom tooth extraction Social History Smoking Status: Never smoker alcohol intake: current alcohol intake frequency: a few times a month substance use type: does not use Physical Exam Const alert, oriented x3 and no apparent distress General Appearance: cooperative Exam Limitations: no limitations HEENT normocephalic and head/scalp atraumatic Eyes PERRL and EOMs intact bilaterally Neck supple and No nodes Resp Auscultation: diminished lung sounds Cardio regular rate and regular rhythm GI normal to inspection, nondistended, normoactive bowel sounds Extremity no clubbing, cyanosis or edema Skin no rashes or lesions noted Neuro CN's II-XII intact bilaterally Lab / Micro Data Result Diagrams: 02/07/21 03:10 02/07/21 03:10 Labs: Laboratory Results - last 24 hr 02/06/21 14:25: MRSA (PCR) Negative 02/07/21 03:10: WBC 11.3 H, RBC 5.20, Hgb 14.3, Hct 43.1, MCV 82.9, MCH 27.5, MCHC 33.2, RDW Std Deviation 40.4, RDW Coeff of Al 13.3, Plt Count 276, MPV 11.1 02/07/21 03:10: Sodium 136, Potassium 4.3, Chloride 102, Carbon Dioxide 25.0, Anion Gap 9, BUN 20 H, Creatinine 0.93, Estim Creat Clear Calc 101.13, Est GFR (MDRD) Af Amer 115, Est GFR (MDRD) Non-Af 95, BUN/Creatinine Ratio 21.5 H, Glucose 111 H, Calcium 9.0, Phosphorus 4.2, Magnesium 2.7 H, Total Bilirubin 0.90, AST 82 H, ALT 251 H, Alkaline Phosphatase 40 L, Total Protein 7.9, Albumin 3.0 L, Globulin 4.9 H, Albumin/Globulin Ratio 0.6 L Micro: Microbiology 02/06/21 15:40 Sputum, Expectorated/Coughed Respiratory Culture - Preliminary Appears to be normal respiratory chan. Further studies to follow. 02/06/21 16:10 Urine, Clean Catch Legionella Antigen - Final 02/06/21 16:10 Urine, Random Streptococcus pneumoniae Antigen (M - Final
--- NOTE | 2021-02-07 16:10 | PCM.PN.HOSP ---
Subjective Subjective Patient on airVo, tachypneic. No fever. Objective Data Objective Data Vital Signs: Vital Signs Temp Pulse Resp BP Pulse Ox 97.8 F 75 29 H 120/80 97 02/07/21 16:00 02/07/21 16:00 02/07/21 16:00 02/07/21 16:00 02/07/21 16:00 Oxygen Flow Rate (L/min) 50 Oxygen Delivery Method Airvo Weight: 179 lb 14.355 oz Body Mass Index (BMI) 27.2 Intake & Output: Intake and Output for Last 24 Hours 02/05/21 02/06/21 02/07/21 23:59 23:59 23:59 Intake Total 1450.00 / 1458.00 770 / 770 Output Total 850 / 850 550 / 550 Balance 600.00 / 608.00 220 / 220 Lab / Micro Data Result Diagrams: 02/07/21 03:10 02/07/21 03:10 Labs: Laboratory Results - last 24 hr 02/06/21 14:25: MRSA (PCR) Negative 02/07/21 03:10: WBC 11.3 H, RBC 5.20, Hgb 14.3, Hct 43.1, MCV 82.9, MCH 27.5, MCHC 33.2, RDW Std Deviation 40.4, RDW Coeff of Al 13.3, Plt Count 276, MPV 11.1 02/07/21 03:10: Sodium 136, Potassium 4.3, Chloride 102, Carbon Dioxide 25.0, Anion Gap 9, BUN 20 H, Creatinine 0.93, Estim Creat Clear Calc 101.13, Est GFR (MDRD) Af Amer 115, Est GFR (MDRD) Non-Af 95, BUN/Creatinine Ratio 21.5 H, Glucose 111 H, Calcium 9.0, Phosphorus 4.2, Magnesium 2.7 H, Total Bilirubin 0.90, AST 82 H, ALT 251 H, Alkaline Phosphatase 40 L, Total Protein 7.9, Albumin 3.0 L, Globulin 4.9 H, Albumin/Globulin Ratio 0.6 L Micro: Microbiology 02/06/21 15:40 Sputum, Expectorated/Coughed Gram Stain - Final 02/06/21 15:40 Sputum, Expectorated/Coughed Respiratory Culture - Preliminary Appears to be normal respiratory chan. Further studies to follow. 02/06/21 16:10 Urine, Clean Catch Legionella Antigen - Final 02/06/21 16:10 Urine, Random Streptococcus pneumoniae Antigen (M - Final Physical Exam Narrative General: Alert, Oriented x3, Cooperative HEENT: Atraumatic, PERRLA, EOMI, Normocephalic Oral: No Gingival or Mucosal Lesions/ Ulcerations Neck: Supple, No JVD, Negative Carotid Bruits Lungs: Air entry diminished in bilateral lung bases. Mild bibasilar crepitation Cardiovascular: Sinus rhythm, regular rate, Regular Rhythm, Normal S1, Normal S2, No murmurs Abdomen: Bowel Sounds Present, Soft, Non Tender, Non-Distended : No renal angle tenderness. No suprapubic tenderness. Extremities: No edema, Capillary Refill Less than 3 Seconds Skin: No rashes, No breakdown Musculoskeletal: No Tenderness to Palpation of Joints or Extremities Neurological: Cranial nerves II-XII grossly intact, DTR 2+/4 and Symmetrical, Neuro grossly intact Psych/Mental Status: Normal Affect, Appropriate. Assessment & Plan Assessment/Plan (1) Acute respiratory failure with hypoxia: (2) 2019 novel coronavirus-infected pneumonia (NCIP): PLAN: Acute hypoxic respiratory failure secondary to COVID-19 pneumonia: Patient on air Vo. On Decadron and remdesivir. Urinary antigens are negative. On incentive spirometry Pep. Prone positioning advised. On Lovenox 40 mg subcu twice daily. Patient seen by publishing systems analyst/respiratory physician. Hyperglycemia, steroid-induced: On Accu-Chek insulin coverage Humalog sliding scale. Overweight: BMI 27.4 -Complicates treatment, prognosis, and outcomes DVT prophylaxis -Lovenox 40 mg twice daily CODE STATUS -Full code Charges/Coding Visit Charges Inpatient E&M: 81122 Subs Hosp L3
[2021-02-07] MEDS: guaiFENesin 10 ML UDC (200MG/10ML) 20 ML PO (17:14)
[2021-02-07] MEDS: MELATONIN 3 MG TABLET 6 MG PO (21:42)
[2021-02-08] VITALS (30 sets, daily range): BP systolic 95–141; BP diastolic 60–93; PULSE 49–95; RESP 22–31; TEMP 36.1–37.2; O2SAT 85–98
[2021-02-08] MEDS: guaiFENesin 10 ML UDC (200MG/10ML) 20 ML PO ×4 (00:32→17:18)
[2021-02-08 05:32] LABS: Hemoglobin 14.4 g/dL (13.0-16.5); Mean Corp Hgb Conc 33.5 g/dL (32-36); Mean Corpuscular Hgb 27.4 pg (27.0-32.0); Mean Corpuscular Volume 81.9 fL (80-94); Mean Platelet Vol. 10.5 fl (6.2-12.0); Platelet Count 280 K/mm3 (150-450); RBC Distribution Width CV 13.1 % (11.6-14.6); RBC Distribution Width SD 39.2 fl (35.1-43.9); Red Blood Count 5.25 M/mm3 (4.6-6.2); White Blood Count 6.9 K/mm3 (4.4-11.0)
[2021-02-08 05:51] LABS: ALB/GLOB Ratio 0.6 RATIO (0.9-2.4); AST(SGOT) 133 U/L (15-37); Alanine Aminotransfer ALT/SGPT 396 U/L (16-61); Albumin, Serum 2.8 g/dL (3.2-5.0); Alkaline Phosphatase 41 U/L (45-117); Anion Gap 8 (5-15); BUN 23 mg/dL (7-18); BUN/Creat Ratio 27.8 RATIO (10-20); Calcium,Total 8.8 mg/dL (8.5-10.1); Chloride 102 mmol/L (98-107); Creatinine, Serum 0.83 mg/dL (0.70-1.30); EST Glomerular Filtration Rate 109 mL/min (>60); Est Glom Filt Rate - Afr Amer 132 mL/min (>60); Estimated Creatinine Clearance 113.31 ml/min; Globulin 4.7 g/dL (2.2-4.2); Glucose 110 mg/dL (74-106); Protein, Total 7.5 g/dL (6.4-8.2); Sodium Level 136 mmol/L (136-145)
[2021-02-08] MEDS: 0.9% Saline Lock 10 ML Syringe IV ×2 (06:22→08:48)
--- NOTE | 2021-02-08 06:39 | NURSING ---
Pt assisted to prone position, support given to pt.
--- NOTE | 2021-02-08 07:29 | PN.CC_ITS ---
Assessment & Plan Assessment/Plan (1) Acute respiratory failure with hypoxia: (2) 2019 novel coronavirus-infected pneumonia (NCIP): PLAN: RECOMMENDATIONS: 1. We will discontinue Remdesivir. If patient continues to have elevation of liver enzymes, may need to discontinue baricitinib 2. Agree with Decadron. Monitor renal and liver function daily 3. Wean oxygen as tolerated. Advancement Airvo if necessary 4. Twice daily prophylactic Lovenox dosing given normal D-dimer 5. Continue zinc, vitamin C and scheduled mucolytic 6. Potentially add codeine if patient becomes BiPAP dependent 7. Encourage Acapella, incentive spirometer and prone positioning as tolerated IMPRESSIONS: 1. Acute hypoxic respiratory failure secondary to COVID-19 pneumonia Patient on significant nasal cannula oxygen at this time. Clinical kiya picion for rapid deterioration. Infectious disease has yet to see the patient. Patient has had some increase in liver function studies. Will discontinue Remdesivir. May need to discontinue baricitinib tomorrow if enzymes continue to worsen. Patient is unvaccinated, so clinical course can be worsened. Will continue patient on vitamin C, zinc and schedule mucolytic. If patient requires BiPAP therapy continuously, could consider codeine to avoid pneumomediastinum. Sputum culture is not suggestive of a secondary bacterial infection. Hold on antibiotics for now. 2. Unvaccinated status Complicates care, management, recovery and prognosis. No reported under lying comorbidities such as asthma may prove helpful in prognosis Subjective Subjective Patient did okay overnight. Patient does report paroxysmal type coughing with difficulty in recovering. Patient was transitioned to Airvo to help with oxygenation. Objective Data Objective Data Vital Signs: Vital Signs Temp Pulse Resp BP Pulse Ox 37.2 C 69 24 H 116/72 94 02/08/21 01:46 02/08/21 07:00 02/08/21 07:00 02/08/21 07:00 02/08/21 07:00 Oxygen Flow Rate (L/min) 50 Oxygen Delivery Method Airvo Weight: 82.5 kg Body Mass Index (BMI) 27.2 Intake & Output: Intake and Output for Last 24 Hours 02/06/21 02/07/21 02/08/21 23:59 23:59 23:59 Intake Total 1450.00 / 1458.00 1150 / 1150 150 / 150 Output Total 850 / 850 2425 / 2425 400 / 400 Balance 600.00 / 608.00 -1275 / -1275 -250 / -250 Lab / Micro Data Result Diagrams: 02/08/21 05:22 02/08/21 05:22 Labs: Laboratory Results - last 24 hr 02/08/21 05:22: WBC 6.9, RBC 5.25, Hgb 14.4, Hct 43.0, MCV 81.9, MCH 27.4, MCHC 33.5, RDW Std Deviation 39.2, RDW Coeff of Al 13.1, Plt Count 280, MPV 10.5 02/08/21 05:22: Sodium 136, Potassium 4.0, Chloride 102, Carbon Dioxide 26.0, Anion Gap 8, BUN 23 H, Creatinine 0.83, Estim Creat Clear Calc 113.31, Est GFR (MDRD) Af Amer 132, Est GFR (MDRD) Non-Af 109, BUN/Creatinine Ratio 27.8 H, Glucose 110 H, Calcium 8.8, Total Bilirubin 0.90, AST 133 H, ALT 396 H, Alkaline Phosphatase 41 L, Total Protein 7.5, Albumin 2.8 L, Globulin 4.7 H, Albumin/Globulin Ratio 0.6 L Micro: Microbiology 02/06/21 15:40 Sputum, Expectorated/Coughed Gram Stain - Final 02/06/21 15:40 Sputum, Expectorated/Coughed Respiratory Culture - Preliminary Appears to be normal respiratory chan. Further studies to follow. 02/06/21 16:10 Urine, Clean Catch Legionella Antigen - Final 02/06/21 16:10 Urine, Random Streptococcus pneumoniae Antigen (M - Final Physical Exam Const alert and oriented x3 General Appearance: cooperative, well developed, in distress Positive for moderate, anxious and ill appearing HEENT normocephalic, head/scalp atraumatic and moist oral mucous membranes Eyes PERRL and EOMs intact bilaterally Neck full ROM and no lymphadenopathy Chest inspection of chest normal Chest: symmetrical chest wall rise; Negative for crepitus Resp Effort and Inspection: respiratory distress and actively coughing non-productive and strong; Negative for pursed lip breathing Auscultation: diminished lung sounds; Negative for rales, rhonchi or wheezes Percussion: Negative for dullness Cardio regular rate, regular rhythm, S1 normal heart sound, S2 normal heart sound, no murmurs, no rub and no gallops GI normal to inspection, nondistended, normoactive bowel sounds no CVA tenderness Extremity no clubbing, cyanosis or edema Skin no rashes or lesions noted Neuro oriented x3, CN's II-XII intact bilaterally, moves all extremities and no focal motor deficits Psych cooperative and affect normal Charges/Coding Visit Charges Inpatient E&M: 32062 Subs Hosp L3
[2021-02-08] MEDS: Enoxaparin 40 MG/0.4 ML Syringe SC ×2 (08:48→22:04)
[2021-02-08] MEDS: Ascorbic Acid 500 MG Tablet 1000 MG PO (08:51)
[2021-02-08] MEDS: Furosemide 40 MG/4 ML Vial IV (08:52)
[2021-02-08] MEDS: dexAMETHasone 4 MG Tablet 6 MG PO (08:52)
[2021-02-08] MEDS: QUEtiapine 25 MG Tablet 50 MG PO ×2 (09:46→22:05)
--- NOTE | 2021-02-08 13:18 | CASEMGMT ---
SW Note SW Referral Source: ICU SW Referral Reason: Ongoing support SW went to ICU and spoke to MD and RN. They voiced patient has no ongoing needs today. SW will remain available if needs arise. Plan: SW will remain available. Yuki CABEZAS
--- NOTE | 2021-02-08 13:20 | PN.HOSP_ITS ---
Subjective Subjective Seen and examined. On high flow oxygen alternating with airVo. Objective Data Objective Data Vital Signs: Vital Signs Temp Pulse Resp BP Pulse Ox 99.0 F 79 27 H 120/78 91 02/08/21 01:46 02/08/21 11:00 02/08/21 11:00 02/08/21 11:00 02/08/21 11:00 Oxygen Flow Rate (L/min) 50 Oxygen Delivery Method Airvo Weight: 181 lb 14.102 oz Body Mass Index (BMI) 27.2 Intake & Output: Intake and Output for Last 24 Hours 02/06/21 02/07/21 02/08/21 23:59 23:59 23:59 Intake Total 1450.00 / 1458.00 1150 / 1150 150 / 150 Output Total 850 / 850 2425 / 2425 400 / 400 Balance 600.00 / 608.00 -1275 / -1275 -250 / -250 Lab / Micro Data Result Diagrams: 02/08/21 05:22 02/08/21 05:22 Labs: Laboratory Results - last 24 hr 02/08/21 05:22: WBC 6.9, RBC 5.25, Hgb 14.4, Hct 43.0, MCV 81.9, MCH 27.4, MCHC 33.5, RDW Std Deviation 39.2, RDW Coeff of Al 13.1, Plt Count 280, MPV 10.5 02/08/21 05:22: Sodium 136, Potassium 4.0, Chloride 102, Carbon Dioxide 26.0, Anion Gap 8, BUN 23 H, Creatinine 0.83, Estim Creat Clear Calc 113.31, Est GFR (MDRD) Af Amer 132, Est GFR (MDRD) Non-Af 109, BUN/Creatinine Ratio 27.8 H, Glucose 110 H, Calcium 8.8, Total Bilirubin 0.90, AST 133 H, ALT 396 H, Alkaline Phosphatase 41 L, Total Protein 7.5, Albumin 2.8 L, Globulin 4.7 H, Albumin/Globulin Ratio 0.6 L Micro: Microbiology 02/06/21 15:40 Sputum, Expectorated/Coughed Gram Stain - Final 02/06/21 15:40 Sputum, Expectorated/Coughed Respiratory Culture - Preliminary Appears to be normal respiratory chan. Further studies to follow. 02/06/21 16:10 Urine, Clean Catch Legionella Antigen - Final 02/06/21 16:10 Urine, Random Streptococcus pneumoniae Antigen (M - Final Physical Exam Narrative General: Alert, Oriented x3, Cooperative HEENT: Atraumatic, PERRLA, EOMI, Normocephalic Oral: No Gingival or Mucosal Lesions/ Ulcerations Neck: Supple, No JVD, Negative Carotid Bruits Lungs: Air entry diminished in bilateral lung bases. Mild bibasilar crepitation Cardiovascular: Sinus rhythm, Normal S1, Normal S2, No murmurs Abdomen: Bowel Sounds Present, Soft, Non Tender, Non-Distended : No renal angle tenderness. No suprapubic tenderness. Extremities: No edema, Capillary Refill Less than 3 Seconds Skin: No rashes, No breakdown Musculoskeletal: No Tenderness to Palpation of Joints or Extremities Neurological: Cranial nerves II-XII grossly intact, DTR 2+/4 and Symmetrical, Neuro grossly intact Psych/Mental Status: Normal Affect, Appropriate. Assessment & Plan Assessment/Plan (1) Acute respiratory failure with hypoxia: (2) 2019 novel coronavirus-infected pneumonia (NCIP): PLAN: Acute hypoxic respiratory failure secondary to COVID-19 pneumonia: Patient on air Vo. On Decadron and remdesivir. Urinary antigens are negative. On incentive spirometry Pep. Prone positioning advised. On Lovenox 40 mg subcu twice daily. Patient seen by human service technician/white goods appliance tech. 02/08: Patient was started on baricitinib on 02/06. Patient tachypneic. Labs reviewed. ALT elevated. AST 133. Be normal. Alk phos level low 41. Monitor liver test. Hyperglycemia, steroid-induced: On Accu-Chek insulin coverage Humalog sliding scale. Overweight: BMI 27.4 -Complicates treatment, prognosis, and outcomes DVT prophylaxis -Lovenox 40 mg twice daily CODE STATUS -Full code Charges/Coding Visit Charges Inpatient E&M: 11217 Subs Hosp L3
[2021-02-09] VITALS (28 sets, daily range): BP systolic 94–136; BP diastolic 74–93; PULSE 50–96; RESP 16–32; TEMP 36.5–36.6; O2SAT 86–97
[2021-02-09] MEDS: guaiFENesin 10 ML UDC (200MG/10ML) 20 ML PO ×4 (00:05→17:47)
[2021-02-09] MEDS: 0.9% Saline Lock 10 ML Syringe IV (03:30)
[2021-02-09 03:50] LABS: Hematocrit 45.8 % (40-54); Hemoglobin 15.1 g/dL (13.0-16.5); Mean Corpuscular Hgb 26.8 pg (27.0-32.0); Mean Corpuscular Volume 81.3 fL (80-94); Mean Platelet Vol. 10.7 fl (6.2-12.0); Platelet Count 325 K/mm3 (150-450); RBC Distribution Width CV 12.9 % (11.6-14.6); RBC Distribution Width SD 38.1 fl (35.1-43.9); Red Blood Count 5.63 M/mm3 (4.6-6.2); White Blood Count 8.6 K/mm3 (4.4-11.0)
[2021-02-09 04:08] LABS: ALB/GLOB Ratio 0.6 RATIO (0.9-2.4); AST(SGOT) 119 U/L (15-37); Alanine Aminotransfer ALT/SGPT 540 U/L (16-61); Alkaline Phosphatase 46 U/L (45-117); Anion Gap 9 (5-15); BUN 24 mg/dL (7-18); BUN/Creat Ratio 26.4 RATIO (10-20); Calcium,Total 8.9 mg/dL (8.5-10.1); Chloride 100 mmol/L (98-107); Creatinine, Serum 0.91 mg/dL (0.70-1.30); EST Glomerular Filtration Rate 97 mL/min (>60); Est Glom Filt Rate - Afr Amer 118 mL/min (>60); Estimated Creatinine Clearance 103.35 ml/min; Globulin 4.9 g/dL (2.2-4.2); Glucose 119 mg/dL (74-106); Protein, Total 7.9 g/dL (6.4-8.2); Sodium Level 136 mmol/L (136-145)
--- NOTE | 2021-02-09 06:26 | PN.CC_ITS ---
Assessment & Plan Assessment/Plan (1) Acute respiratory failure with hypoxia: (2) 2019 novel coronavirus-infected pneumonia (NCIP): PLAN: RECOMMENDATIONS: 1. Wean supplemental oxygen to maintain saturations at or above 90%. 2. Continue Decadron, Lovenox and baricitinib to complete treatment courses. 3. Continue zinc, vitamin C and scheduled mucolytic therapy. 4. Diuretic therapy as needed to maintain euvolemic state. 5. Encourage incentive spirometer use and mobilize patient as tolerated. IMPRESSIONS: 1. Acute hypoxic respiratory failure secondary to COVID-19 pneumonia Respiratory status is stable at this time on nasal cannula supplemental oxygen, which will be continued to maintain saturations at or above 90%. Remdesivir was discontinued due to liver function studies. The patient will be continued on Decadron, Lovenox and baricitinib. If liver function studies continue to worsen, baricitinib will need to be discontinued. Continue vitamin C, zinc and scheduled mucolytic therapy. Encourage incentive spirometer use and mobilize patient as tolerated. 2. Unvaccinated status Complicates care, management, recovery and prognosis. Continue supportive measures as noted above. This note was generated with [employer] dictation software. It may contain incorrect words, spelling, and punctuation that were not noted in checking the note before signing. Subjective Subjective The patient was seen and examined at the bedside this morning. Events from the last 24 hours have been reviewed. The patient is currently afebrile, hemodynamically stable and maintaining appropriate oxygen saturations on 10 L/min via nasal cannula. The patient is currently documented to be overall net -1.7 L for the hospital admission. The patient remains on Decadron, prophylactic Lovenox and baricitinib. AST has improved to 119 this morning. However, ALT has increased to 540. Objective Data Objective Data The patient's most recent lab work, culture data and imaging studies have all been personally reviewed. Blood cultures have demonstrated no growth to date. Sputum culture appears to be normal respiratory chan. Strep and urine Legionella antigens were negative. Vital Signs: Vital Signs Temp Pulse Resp BP Pulse Ox 97.9 F 50 L 18 133/77 H 93 02/09/21 00:00 02/09/21 06:00 02/09/21 06:00 02/09/21 06:00 02/09/21 06:00 Oxygen Flow Rate (L/min) 10 Oxygen Delivery Method Nasal Cannula Weight: 81.3 kg Body Mass Index (BMI) 27.2 Intake & Output: Intake and Output for Last 24 Hours 02/07/21 02/08/21 02/09/21 23:59 23:59 23:59 Intake Total 1150 / 1150 500 / 800 300 / 300 Output Total 2425 / 2425 1050 / 1850 800 / 800 Balance -1275 / -1275 -550 / -1050 -500 / -500 Lab / Micro Data Attestation: I reviewed the patient's lab results. Result Diagrams: 02/09/21 03:40 02/09/21 03:40 Labs: Laboratory Results - last 24 hr 02/09/21 03:40: WBC 8.6, RBC 5.63, Hgb 15.1, Hct 45.8, MCV 81.3, MCH 26.8 L, MCHC 33.0, RDW Std Deviation 38.1, RDW Coeff of Al 12.9, Plt Count 325, MPV 10.7 02/09/21 03:40: Sodium 136, Potassium 4.0, Chloride 100, Carbon Dioxide 27.0, Anion Gap 9, BUN 24 H, Creatinine 0.91, Estim Creat Clear Calc 103.35, Est GFR (MDRD) Af Amer 118, Est GFR (MDRD) Non-Af 97, BUN/Creatinine Ratio 26.4 H, Glucose 119 H, Calcium 8.9, Total Bilirubin 0.80, AST 119 H, ALT 540 H, Alkaline Phosphatase 46, Total Protein 7.9, Albumin 3.0 L, Globulin 4.9 H, Albumin/Globulin Ratio 0.6 L Micro: Microbiology 02/06/21 11:00 Blood Culture (Wb) - Left Hand Blood Culture - Preliminary No growth in 48 hours. 02/06/21 12:00 Blood Culture (Wb) - Right Hand Blood Culture - Preliminary No growth in 48 hours. 02/06/21 15:40 Sputum, Expectorated/Coughed Gram Stain - Final 02/06/21 15:40 Sputum, Expectorated/Coughed Respiratory Culture - Preliminary Appears to be normal respiratory chan. Further studies to follow. 02/06/21 16:10 Urine, Clean Catch Legionella Antigen - Final 02/06/21 16:10 Urine, Random Streptococcus pneumoniae Antigen (M - Final Physical Exam Const alert and no apparent distress General Appearance: cooperative HEENT normocephalic and head/scalp atraumatic Eyes PERRL, EOMs intact bilaterally and conjunctivae normal Neck supple General: trachea midline Chest inspection of chest normal Resp Auscultation: diminished lung sounds; Negative for rales, rhonchi or wheezes Cardio regular rate and regular rhythm GI normal to inspection, nondistended, normoactive bowel sounds Extremity no clubbing, cyanosis or edema Skin no rashes or lesions noted Neuro moves all extremities and no focal motor deficits Psych cooperative and affect normal Charges/Coding Visit Charges Inpatient E&M: 27099 Subs Hosp L2
[2021-02-09] MEDS: dexAMETHasone 4 MG Tablet 6 MG PO (08:53)
[2021-02-09] MEDS: Enoxaparin 40 MG/0.4 ML Syringe SC ×2 (08:53→19:57)
[2021-02-09] MEDS: Ascorbic Acid 500 MG Tablet 1000 MG PO (08:53)
[2021-02-09] MEDS: CHLORHEXIDINE GLUC 2% CLOTH 1 EACH TOWELETTE TOPICAL (12:04)
--- NOTE | 2021-02-09 12:26 | PCM.PN.HOSP ---
Subjective Subjective Patient has mild shortness of breath. Afebrile. On 10 L of oxygen. Objective Data Objective Data Vital Signs: Vital Signs Temp Pulse Resp BP Pulse Ox 98 F 82 23 H 123/80 H 89 02/09/21 11:00 02/09/21 11:00 02/09/21 11:00 02/09/21 11:00 02/09/21 11:00 Oxygen Flow Rate (L/min) 10 Oxygen Delivery Method Nasal Cannula Weight: 179 lb 3.773 oz Body Mass Index (BMI) 27.2 Intake & Output: Intake and Output for Last 24 Hours 02/07/21 02/08/21 02/09/21 23:59 23:59 23:59 Intake Total 1150 / 1150 500 / 800 400 / 400 Output Total 2425 / 2425 1050 / 1850 800 / 800 Balance -1275 / -1275 -550 / -1050 -400 / -400 Lab / Micro Data Result Diagrams: 02/09/21 03:40 02/09/21 03:40 Labs: Laboratory Results - last 24 hr 02/09/21 03:40: WBC 8.6, RBC 5.63, Hgb 15.1, Hct 45.8, MCV 81.3, MCH 26.8 L, MCHC 33.0, RDW Std Deviation 38.1, RDW Coeff of Al 12.9, Plt Count 325, MPV 10.7 02/09/21 03:40: Sodium 136, Potassium 4.0, Chloride 100, Carbon Dioxide 27.0, Anion Gap 9, BUN 24 H, Creatinine 0.91, Estim Creat Clear Calc 103.35, Est GFR (MDRD) Af Amer 118, Est GFR (MDRD) Non-Af 97, BUN/Creatinine Ratio 26.4 H, Glucose 119 H, Calcium 8.9, Total Bilirubin 0.80, AST 119 H, ALT 540 H, Alkaline Phosphatase 46, Total Protein 7.9, Albumin 3.0 L, Globulin 4.9 H, Albumin/Globulin Ratio 0.6 L Micro: Microbiology 02/06/21 11:00 Blood Culture (Wb) - Left Hand Blood Culture - Preliminary No growth in 48 hours. 02/06/21 12:00 Blood Culture (Wb) - Right Hand Blood Culture - Preliminary No growth in 48 hours. 02/06/21 15:40 Sputum, Expectorated/Coughed Gram Stain - Final 02/06/21 15:40 Sputum, Expectorated/Coughed Respiratory Culture - Preliminary Appears to be normal respiratory chan. Further studies to follow. 02/06/21 16:10 Urine, Clean Catch Legionella Antigen - Final 02/06/21 16:10 Urine, Random Streptococcus pneumoniae Antigen (M - Final Physical Exam Narrative General: Alert, Oriented x3, Cooperative HEENT: Atraumatic, PERRLA, EOMI, Normocephalic Oral: No Gingival or Mucosal Lesions/ Ulcerations Neck: Supple, No JVD, Negative Carotid Bruits Lungs: Air entry diminished in bilateral lung bases. Mild tachypnea. No crepitations. Cardiovascular: Sinus rhythm, Normal S1, Normal S2, No murmurs Abdomen: Bowel Sounds Present, Soft, Non Tender, Non-Distended : No renal angle tenderness. No suprapubic tenderness. Extremities: No edema, Capillary Refill Less than 3 Seconds Skin: No rashes, No breakdown Musculoskeletal: No Tenderness to Palpation of Joints or Extremities Neurological: Cranial nerves II-XII grossly intact, DTR 2+/4 and Symmetrical, Neuro grossly intact Psych/Mental Status: Normal Affect, Appropriate. Assessment & Plan Assessment/Plan (1) Acute respiratory failure with hypoxia: (2) 2019 novel coronavirus-infected pneumonia (NCIP): PLAN: Acute hypoxic respiratory failure secondary to COVID-19 pneumonia: Patient on air Vo. The patient was started on on Decadron and remdesivir. Urinary antigens are negative. On incentive spirometry Pep. Prone positioning advised. On Lovenox 40 mg subcu twice daily. Patient seen by fuel agent/bed control specialist. 02/08: Patient was started on baricitinib on 02/06. Patient tachypneic. Labs reviewed. ALT elevated. AST 133. Be normal. Alk phos level low 41. Monitor liver test. 02/09: Further increase in ALT but decrease in AST. TP normal. Alk phos 46.On baricitinib. Patient had 1 dose of 100 mg remdesivir on 02/07. Continue dexamethasone. Hyperglycemia, steroid-induced: On Accu-Chek insulin coverage Humalog sliding scale. Overweight: BMI 27.4 -Complicates treatment, prognosis, and outcomes DVT prophylaxis -Lovenox 40 mg twice daily CODE STATUS -Full code Active Medications Acetaminophen (Acetaminophen 325 Mg Tablet) 650 mg PO Q6H PRN PRN PRN Reason: Pain Score 1-10/Temp > 100.7 F Last Admin: 02/07/21 21:42 Dose: 650 mg Documented by: Ascorbic Acid (Ascorbic Acid 500 Mg Tablet) 1,000 mg PO BREAKFAST [facility] Last Admin: 02/09/21 08:53 Dose: 1,000 mg Documented by: Baricitinib (Baricitinib 2 Mg Tablet) 4 mg PO DAILY [facility] Stop: 02/19/21 10:01 Last Admin: 02/09/21 08:53 Dose: 4 mg Documented by: Chlorhexidine Gluconate (Chlorhexidine Gluc 2% Cloth 1 Each Towelette) 1 each TOPICAL DAILY [facility] Last Admin: 02/09/21 12:04 Dose: 1 each Documented by: Dexamethasone (Dexamethasone 4 Mg Tablet) 6 mg PO DAILY [facility] Stop: 02/16/21 10:01 Last Admin: 02/09/21 08:53 Dose: 6 mg Documented by: Enoxaparin Sodium (Enoxaparin 40 Mg/0.4 Ml Syringe) 40 mg SC BID [facility] Last Admin: 02/09/21 08:53 Dose: 40 mg Documented by: Guaifenesin (Guaifenesin 10 Ml Udc (200mg/10ml)) 20 ml PO Q6H [facility] Last Admin: 02/09/21 11:58 Dose: 20 ml Documented by: Sodium Chloride () 250 mls @ 15 mls/hr IV .[id number] PRN PRN Reason: Saline Flush Sodium Chloride () 250 mls @ 15 mls/hr IV .[id number] PRN PRN Reason: Additional IVPB Infusion Melatonin (Melatonin 3 Mg Tablet) 6 mg PO QHS PRN PRN Reason: SLEEP Last Admin: 02/07/21 21:42 Dose: 6 mg Documented by: Ondansetron HCl (Ondansetron 4 Mg/2 Ml Vial) 4 mg IV Q8H PRN PRN PRN Reason: NAUSEA/VOMITING Polyethylene Glycol (Polyethylene Glycol 3350 17 Gm Packet) 17 gm PO DAILY [facility] Last Admin: 02/09/21 11:50 Dose: Not Given Documented by: Quetiapine Fumarate (Quetiapine 25 Mg Tablet) 50 mg PO BID [facility] Last Admin: 02/09/21 08:54 Dose: Not Given Documented by: Senna/Docusate Sodium (Senna/Docusate Sodium 1 Tablet) 2 tablet PO BID [facility] Last Admin: 02/09/21 11:50 Dose: Not Given Documented by: Sodium Chloride (0.9% Saline Lock 10 Ml Syringe) 10 - 40 ml IV UD PRN PRN Reason: SALINE FLUSH Last Admin: 02/09/21 03:30 Dose: 10 ml Documented by: Sodium Chloride (Sodium Chloride 0.65% 1 [place].Btl) 2 spray NASAL TID PRN PRN PRN Reason: NASAL DRYNESS Zinc Sulfate (Zinc Sulfate (50mg Elemental) 220 Mg Capsule) 220 mg PO TID [facility] Last Admin: 02/09/21 06:38 Dose: 220 mg Documented by: Charges/Coding Visit Charges Inpatient E&M: 42415 Subs Hosp L3
[2021-02-09] MEDS: QUEtiapine 25 MG Tablet 50 MG PO (19:57)
[2021-02-09] MEDS: Senna/Docusate Sodium 1 Tablet 2 TABLET PO (19:57)
[2021-02-10] VITALS (28 sets, daily range): BP systolic 110–143; BP diastolic 73–99; PULSE 59–92; RESP 17–90; TEMP 36.6–36.8; O2SAT 24–98
[2021-02-10] MEDS: guaiFENesin 10 ML UDC (200MG/10ML) 20 ML PO ×4 (04:54→19:48)
[2021-02-10 05:15] LABS: Hematocrit 44.7 % (40-54); Hemoglobin 14.8 g/dL (13.0-16.5); Mean Corp Hgb Conc 33.1 g/dL (32-36); Mean Corpuscular Hgb 27.2 pg (27.0-32.0); Mean Platelet Vol. 10.9 fl (6.2-12.0); Platelet Count 354 K/mm3 (150-450); RBC Distribution Width CV 12.8 % (11.6-14.6); RBC Distribution Width SD 38.2 fl (35.1-43.9); Red Blood Count 5.45 M/mm3 (4.6-6.2); White Blood Count 11.5 K/mm3 (4.4-11.0)
[2021-02-10 05:35] LABS: ALB/GLOB Ratio 0.6 RATIO (0.9-2.4); AST(SGOT) 53 U/L (15-37); Alanine Aminotransfer ALT/SGPT 357 U/L (16-61); Albumin, Serum 2.8 g/dL (3.2-5.0); Alkaline Phosphatase 47 U/L (45-117); Anion Gap 8 (5-15); BUN 21 mg/dL (7-18); BUN/Creat Ratio 24.4 RATIO (10-20); Calcium,Total 8.8 mg/dL (8.5-10.1); Chloride 101 mmol/L (98-107); Creatinine, Serum 0.86 mg/dL (0.70-1.30); EST Glomerular Filtration Rate 104 mL/min (>60); Est Glom Filt Rate - Afr Amer 126 mL/min (>60); Estimated Creatinine Clearance 109.36 ml/min; Globulin 4.8 g/dL (2.2-4.2); Glucose 113 mg/dL (74-106); Potassium 4.2 mmol/L (3.5-5.1); Protein, Total 7.6 g/dL (6.4-8.2); Sodium Level 136 mmol/L (136-145)
--- NOTE | 2021-02-10 07:15 | NURSING ---
pt noted to de sat 80's with coughing episodes
[2021-02-10] MEDS: Enoxaparin 40 MG/0.4 ML Syringe SC ×2 (08:33→19:47)
[2021-02-10] MEDS: dexAMETHasone 4 MG Tablet 6 MG PO (08:33)
[2021-02-10] MEDS: Ascorbic Acid 500 MG Tablet 1000 MG PO (08:34)
--- NOTE | 2021-02-10 10:43 | PCM.PN.INT ---
Assessment & Plan Assessment/Plan (1) Acute respiratory failure with hypoxia: (2) 2019 novel coronavirus-infected pneumonia (NCIP): PLAN: RECOMMENDATIONS: 1. Wean supplemental oxygen to maintain saturations at or above 90%. 2. Continue Decadron, Lovenox and baricitinib to complete treatment courses. 3. Continue zinc, vitamin C and scheduled mucolytic therapy. 4. Diuretic therapy as needed to maintain euvolemic state. 5. Antimicrobials given Haemophilus isolated in sputum culture. 6. Encourage incentive spirometer use and mobilize patient as tolerated. IMPRESSIONS: 1. Acute hypoxic respiratory failure secondary to COVID-19 pneumonia Respiratory status is stable at this time on nasal cannula supplemental oxygen, which will be continued to maintain saturations at or above 90%. Remdesivir was discontinued due to liver function studies. The patient will be continued on Decadron, Lovenox and baricitinib. Liver function is stable. Continue vitamin C, zinc and scheduled mucolytic therapy. Encourage incentive spirometer use and mobilize patient as tolerated. Given that the patient sputum culture was positive for Haemophilus, antimicrobials were initiated. 2. Unvaccinated status Complicates care, management, recovery and prognosis. Continue supportive measures as noted above. This note was generated with [employer] dictation software. It may contain incorrect words, spelling, and punctuation that were not noted in checking the note before signing. Subjective Subjective The patient was seen and examined at the bedside this morning. Events from the last 24 hours have been reviewed. The patient is currently afebrile, hemodynamically stable and maintaining appropriate oxygen saturations on 10 L/min via nasal cannula. The patient is currently documented to be overall net -2.2 L for the hospital admission. The patient remains on Decadron, prophylactic Lovenox and baricitinib. Liver function has improved this morning. Objective Data Objective Data The patient's most recent lab work, culture data and imaging studies have all been personally reviewed. Blood cultures have demonstrated no growth to date. Sputum culture is growing Haemophilus parainfluenza. Vital Signs: Vital Signs Temp Pulse Resp BP Pulse Ox 97.9 F 92 24 H 130/80 H 91 02/10/21 09:43 02/10/21 09:43 02/10/21 09:43 02/10/21 09:43 02/10/21 09:43 Oxygen Flow Rate (L/min) 10 Oxygen Delivery Method Nasal Cannula Weight: 82.4 kg Body Mass Index (BMI) 27.2 Intake & Output: Intake and Output for Last 24 Hours 02/08/21 02/09/21 02/10/21 23:59 23:59 23:59 Intake Total 500 / 800 1480 / 1630 250 / 250 Output Total 1050 / 1850 1650 / 2300 1050 / 1050 Balance -550 / -1050 -170 / -670 -800 / -800 Lab / Micro Data Result Diagrams: 02/10/21 04:50 02/10/21 04:50 Labs: Laboratory Results - last 24 hr 02/10/21 04:50: WBC 11.5 H, RBC 5.45, Hgb 14.8, Hct 44.7, MCV 82.0, MCH 27.2, MCHC 33.1, RDW Std Deviation 38.2, RDW Coeff of Al 12.8, Plt Count 354, MPV 10.9 02/10/21 04:50: Sodium 136, Potassium 4.2, Chloride 101, Carbon Dioxide 27.0, Anion Gap 8, BUN 21 H, Creatinine 0.86, Estim Creat Clear Calc 109.36, Est GFR (MDRD) Af Amer 126, Est GFR (MDRD) Non-Af 104, BUN/Creatinine Ratio 24.4 H, Glucose 113 H, Calcium 8.8, Total Bilirubin 0.70, AST 53 H, ALT 357 H, Alkaline Phosphatase 47, Total Protein 7.6, Albumin 2.8 L, Globulin 4.8 H, Albumin/Globulin Ratio 0.6 L Micro: Microbiology 02/06/21 15:40 Sputum, Expectorated/Coughed Gram Stain - Final 02/06/21 15:40 Sputum, Expectorated/Coughed Respiratory Culture - Final Haemophilus parainfluenzae 02/06/21 11:00 Blood Culture (Wb) - Left Hand Blood Culture - Preliminary No growth in 48 hours. 02/06/21 12:00 Blood Culture (Wb) - Right Hand Blood Culture - Preliminary No growth in 48 hours. 02/06/21 16:10 Urine, Clean Catch Legionella Antigen - Final 02/06/21 16:10 Urine, Random Streptococcus pneumoniae Antigen (M - Final Physical Exam Const alert and no apparent distress Constitutional Narrative: Sitting in bedside recliner. General Appearance: cooperative HEENT normocephalic and head/scalp atraumatic Eyes PERRL, EOMs intact bilaterally and conjunctivae normal Neck supple General: trachea midline Chest inspection of chest normal Resp Auscultation: diminished lung sounds; Negative for rales, rhonchi or wheezes Cardio regular rate and regular rhythm GI normal to inspection, nondistended, normoactive bowel sounds Extremity no clubbing, cyanosis or edema Skin no rashes or lesions noted Neuro moves all extremities and no focal motor deficits Psych cooperative and affect normal Charges/Coding Visit Charges Inpatient E&M: 19503 Subs Hosp L2
--- NOTE | 2021-02-10 10:56 | PN.HOSP_ITS ---
Subjective Subjective Patient seen and examined. He complains of still feeling short of breath and still coughing though he feels he is getting better. Patient is frustrated as his prolonged stay in the hospital and is wondering if he will get well enough to be discharged. Review of systems otherwise negative. Objective Data Objective Data Vital Signs: Vital Signs Temp Pulse Resp BP Pulse Ox 97.9 F 84 22 H 122/83 H 94 02/10/21 09:43 02/10/21 10:00 02/10/21 10:00 02/10/21 10:00 02/10/21 10:00 Oxygen Flow Rate (L/min) 12 Oxygen Delivery Method Nasal Cannula Weight: 181 lb 10.574 oz Body Mass Index (BMI) 27.2 Intake & Output: Intake and Output for Last 24 Hours 02/08/21 02/09/21 02/10/21 23:59 23:59 23:59 Intake Total 500 / 800 1480 / 1630 250 / 250 Output Total 1050 / 1850 1650 / 2300 1050 / 1050 Balance -550 / -1050 -170 / -670 -800 / -800 Lab / Micro Data Result Diagrams: 02/10/21 04:50 02/10/21 04:50 Labs: Laboratory Results - last 24 hr 02/10/21 04:50: WBC 11.5 H, RBC 5.45, Hgb 14.8, Hct 44.7, MCV 82.0, MCH 27.2, MCHC 33.1, RDW Std Deviation 38.2, RDW Coeff of Al 12.8, Plt Count 354, MPV 10.9 02/10/21 04:50: Sodium 136, Potassium 4.2, Chloride 101, Carbon Dioxide 27.0, Anion Gap 8, BUN 21 H, Creatinine 0.86, Estim Creat Clear Calc 109.36, Est GFR (MDRD) Af Amer 126, Est GFR (MDRD) Non-Af 104, BUN/Creatinine Ratio 24.4 H, Glucose 113 H, Calcium 8.8, Total Bilirubin 0.70, AST 53 H, ALT 357 H, Alkaline Phosphatase 47, Total Protein 7.6, Albumin 2.8 L, Globulin 4.8 H, Albumin/Gl obulin Ratio 0.6 L Micro: Microbiology 02/06/21 15:40 Sputum, Expectorated/Coughed Gram Stain - Final 02/06/21 15:40 Sputum, Expectorated/Coughed Respiratory Culture - Final Haemophilus parainfluenzae 02/06/21 11:00 Blood Culture (Wb) - Left Hand Blood Culture - Preliminary No growth in 48 hours. 02/06/21 12:00 Blood Culture (Wb) - Right Hand Blood Culture - Preliminary No growth in 48 hours. 02/06/21 16:10 Urine, Clean Catch Legionella Antigen - Final 02/06/21 16:10 Urine, Random Streptococcus pneumoniae Antigen (M - Final Physical Exam Const alert, oriented x3 and no apparent distress Exam Limitations: no limitations HEENT head/scalp atraumatic and moist oral mucous membranes Head and Scalp: normocephalic Eyes PERRL, EOMs intact bilaterally and conjunctivae normal Neck no lymphadenopathy Resp Resp Narrative: Tachypneic, diminished breath sounds bibasilarly. No wheezes or crackles. On 10 L of oxygen. Cardio S1 normal heart sound, S2 normal heart sound and no murmurs Cardio Narrative: Tachycardic. GI normal to inspection, nondistended, normoactive bowel sounds, soft to palpation, non-tender and non-distended Extremity normal to inspection, full ROM and no clubbing, cyanosis or edema Peripheral Pulses: Yes pulses 2+ throughout Skin no rashes or lesions noted Neuro oriented x3, CN's II-XII intact bilaterally and moves all extremities Sensorium / Orientation: awake and alert Psych affect normal Assessment & Plan Assessment/Plan (1) Acute respiratory failure with hypoxia: (2) 2019 novel coronavirus-infected pneumonia (NCIP): PLAN: #Acute hypoxic respiratory failure due to COVID 19 pneumonia * was on 8L of oxygen at time of review. * still remains short of breath * breathing treatment with bronchodilators * titrate oxygen to maintain sats >90% * on baricitinib and decacron * pulmonology on board. * on zinc and vitamin c * diuretics prn to maintain euvolemia * #Covid 19 pneumonia: as above #Hyperglycemia * steroid induced. On ISS. Accuchecks ACHS * #DVT prophylaxis: lovenox 40mg bid. Charges/Coding Visit Charges Inpatient E&M: 73608 Subs Hosp L3
--- NOTE | 2021-02-10 11:10 | CASEMGMT ---
SW met w/pt in room, offered support. Pt expressed frustration with still being in the hospital. Pt states is feeling better, but still coughing, oxygen drops when he sits up. Pt has three daughters, ages 10,8,3. He has been able to speak w/them a bit, states tried yesterday but was coughing too much. SW offered support to pt. SW will continue to follow, remains available for support to pt. GINA Becerra
[2021-02-10] MEDS: CHLORHEXIDINE GLUC 2% CLOTH 1 EACH TOWELETTE TOPICAL (12:23)
--- NOTE | 2021-02-10 12:47 | PCM.PN.ID ---
Physical Exam Narrative Feeling better, proning. No fever, no n/v/d. Const alert and no apparent distress General Appearance: cooperative Resp clear to auscultation bilaterally Auscultation: diminished lung sounds Cardio regular rate and regular rhythm GI normal to inspection, nondistended, normoactive bowel sounds Skin no rashes or lesions noted ID ID: Route of nutrition/ use of supplements: [] Nutritional Intake: [] IV Site: [] [place] Catheter: [] Assessment & Plan Assessment/Plan (1) 2019 novel coronavirus-infected pneumonia (NCIP): PLAN: Covid symptoms started around 01/28/21. Unvaccinated. Isolate for 20 days starting from 01/28. Recommended vaccine once out of iso. is covid (+), improving. On dex, baricitinib. On airvo. Stopped remdesivir due to rise in LFTs, starting to improve now. Will follow (2) Acute respiratory failure with hypoxia:
[2021-02-10] MEDS: QUEtiapine 25 MG Tablet 50 MG PO (19:47)
--- NOTE | 2021-02-10 22:03 | NURSING ---
pt pulse ox staying at 88%. on 9lnc. Pt postion on side. 02 increased to 10l
[2021-02-11] VITALS (17 sets, daily range): BP systolic 110–146; BP diastolic 66–85; PULSE 61–91; RESP 20–26; TEMP 36.4–36.8; O2SAT 87–96
--- NOTE | 2021-02-11 00:10 | NURSING ---
decrease 02 to 9lnc
[2021-02-11 04:03] LABS: Hematocrit 43.7 % (40-54); Hemoglobin 14.2 g/dL (13.0-16.5); Mean Corp Hgb Conc 32.5 g/dL (32-36); Mean Corpuscular Hgb 26.8 pg (27.0-32.0); Mean Corpuscular Volume 82.6 fL (80-94); Mean Platelet Vol. 10.8 fl (6.2-12.0); Platelet Count 366 K/mm3 (150-450); RBC Distribution Width CV 12.6 % (11.6-14.6); RBC Distribution Width SD 38.4 fl (35.1-43.9); Red Blood Count 5.29 M/mm3 (4.6-6.2); White Blood Count 12.1 K/mm3 (4.4-11.0)
[2021-02-11 04:22] LABS: ALB/GLOB Ratio 0.5 RATIO (0.9-2.4); AST(SGOT) 38 U/L (15-37); Alanine Aminotransfer ALT/SGPT 248 U/L (16-61); Albumin, Serum 2.7 g/dL (3.2-5.0); Alkaline Phosphatase 48 U/L (45-117); Anion Gap 6 (5-15); BUN 23 mg/dL (7-18); BUN/Creat Ratio 25.4 RATIO (10-20); Calcium,Total 8.8 mg/dL (8.5-10.1); Chloride 101 mmol/L (98-107); Creatinine, Serum 0.91 mg/dL (0.70-1.30); EST Glomerular Filtration Rate 98 mL/min (>60); Est Glom Filt Rate - Afr Amer 119 mL/min (>60); Estimated Creatinine Clearance 103.35 ml/min; Globulin 5.1 g/dL (2.2-4.2); Glucose 119 mg/dL (74-106); Potassium 4.2 mmol/L (3.5-5.1); Protein, Total 7.8 g/dL (6.4-8.2); Sodium Level 135 mmol/L (136-145)
[2021-02-11] MEDS: 0.9% Saline Lock 10 ML Syringe IV (05:32)
[2021-02-11] MEDS: guaiFENesin 10 ML UDC (200MG/10ML) 20 ML PO ×3 (05:32→21:30)
--- NOTE | 2021-02-11 05:40 | NURSING ---
po drop to 79% on 9lnc.Pt repostion to other side. peep given but 02 sats remained at 81-83%. 02 increase to 12ll
--- NOTE | 2021-02-11 06:28 | PCM.PN.INT ---
Assessment & Plan Assessment/Plan (1) Acute respiratory failure with hypoxia: (2) 2019 novel coronavirus-infected pneumonia (NCIP): PLAN: RECOMMENDATIONS: 1. Wean supplemental oxygen to maintain saturations at or above 90%. 2. Continue Decadron, Lovenox and baricitinib to complete treatment courses. 3. Continue zinc, vitamin C and scheduled mucolytic therapy. 4. Diuretic therapy as needed to maintain euvolemic state. IV Lasix will be administered today. 5. Complete 7-day treatment course of antimicrobials. 6. Encourage incentive spirometer use and mobilize patient as tolerated. IMPRESSIONS: 1. Acute hypoxic respiratory failure secondary to COVID-19 pneumonia Respiratory status is stable at this time on nasal cannula supplemental oxygen, which will be continued to maintain saturations at or above 90%. Remdesivir was discontinued due to liver function studies. The patient will be continued on Decadron, Lovenox and baricitinib. Liver function has subsequently improved. Continue vitamin C, zinc and scheduled mucolytic therapy. Encourage incentive spirometer use and mobilize patient as tolerated. Continue antimicrobials to complete 7-day treatment course. We will continue as needed Lasix to maintain euvolemic state. 2. Unvaccinated status Complicates care, management, recovery and prognosis. Continue supportive measures as noted above. This note was generated with [employer] dictation software. It may contain incorrect words, spelling, and punctuation that were not noted in checking the note before signing. Subjective Subjective The patient was seen and examined at the bedside this morning. Events from the last 24 hours have been reviewed. The patient is currently afebrile, hemodynamically stable and maintaining appropriate oxygen saturations on 12 L/min via nasal cannula. The patient is currently documented to be overall net -2.7 L for the hospitalization. Creatinine remains stable. Liver function continues to improve. The patient remains on antimicrobials, Decadron, prophylactic Lovenox and baricitinib. Objective Data Objective Data The patient's most recent lab work, culture data and imaging studies have all been personally reviewed. Blood cultures have demonstrated no growth to date. Sputum culture is growing Haemophilus parainfluenza. Vital Signs: Vital Signs Temp Pulse Resp BP Pulse Ox 98.1 F 61 26 H 110/66 93 02/11/21 03:56 02/11/21 06:13 02/11/21 06:13 02/11/21 06:13 02/11/21 06:13 Oxygen Flow Rate (L/min) 12 Oxygen Delivery Method Nasal Cannula Weight: 81.5 kg Body Mass Index (BMI) 27.2 Intake & Output: Intake and Output for Last 24 Hours 02/09/21 02/10/21 02/11/21 23:59 23:59 23:59 Intake Total 1480 / 1630 1289.75 / 1409.75 120 / 120 Output Total 1650 / 2300 2400 / 2400 400 / 400 Balance -170 / -670 -1110.25 / -990.25 -280 / -280 Lab / Micro Data Attestation: I reviewed the patient's lab results. Result Diagrams: 02/11/21 03:45 02/11/21 03:45 Labs: Laboratory Results - last 24 hr 02/11/21 03:45: WBC 12.1 H, RBC 5.29, Hgb 14.2, Hct 43.7, MCV 82.6, MCH 26.8 L, MCHC 32.5, RDW Std Deviation 38.4, RDW Coeff of Al 12.6, Plt Count 366, MPV 10.8 02/11/21 03:45: Sodium 135 L, Potassium 4.2, Chloride 101, Carbon Dioxide 28.0, Anion Gap 6, BUN 23 H, Creatinine 0.91, Estim Creat Clear Calc 103.35, Est GFR (MDRD) Af Amer 119, Est GFR (MDRD) Non-Af 98, BUN/Creatinine Ratio 25.4 H, Glucose 119 H, Calcium 8.8, Total Bilirubin 0.50, AST 38 H, ALT 248 H, Alkaline Phosphatase 48, Total Protein 7.8, Albumin 2.7 L, Globulin 5.1 H, Albumin/Globulin Ratio 0.5 L Micro: Microbiology 02/06/21 15:40 Sputum, Expectorated/Coughed Gram Stain - Final 02/06/21 15:40 Sputum, Expectorated/Coughed Respiratory Culture - Final Haemophilus parainfluenzae 02/06/21 11:00 Blood Culture (Wb) - Left Hand Blood Culture - Preliminary No growth in 48 hours. 02/06/21 12:00 Blood Culture (Wb) - Right Hand Blood Culture - Preliminary No growth in 48 hours. 02/06/21 16:10 Urine, Clean Catch Legionella Antigen - Final 02/06/21 16:10 Urine, Random Streptococcus pneumoniae Antigen (M - Final Physical Exam Const alert, oriented x3 and no apparent distress General Appearance: cooperative HEENT normocephalic, head/scalp atraumatic and moist oral mucous membranes Eyes PERRL, EOMs intact bilaterally and conjunctivae normal Neck supple General: trachea midline Chest inspection of chest normal Resp Effort and Inspection: able to speak in complete sentences Auscultation: diminished lung sounds; Negative for rales, rhonchi or wheezes Cardio regular rate and regular rhythm GI normal to inspection, nondistended, normoactive bowel sounds Extremity no clubbing, cyanosis or edema Skin no rashes or lesions noted Neuro moves all extremities and no focal motor deficits Psych cooperative and affect normal Charges/Coding Visit Charges Inpatient E&M: 70768 Subs Hosp L2
--- NOTE | 2021-02-11 07:21 | PN.HOSP_ITS ---
Subjective Subjective Patient seen and examined. He is on 12L of oxygen today. He is tachypneic, but has no other complaints. He is in cumulative negative balance by 2.78L. Review of systems otherwise negative. Objective Data Objective Data Vital Signs: Vital Signs Temp Pulse Resp BP Pulse Ox 98.1 F 61 26 H 110/66 93 02/11/21 03:56 02/11/21 06:13 02/11/21 06:13 02/11/21 06:13 02/11/21 06:13 Oxygen Flow Rate (L/min) 12 Oxygen Delivery Method Nasal Cannula Weight: 179 lb 10.828 oz Body Mass Index (BMI) 27.2 Intake & Output: Intake and Output for Last 24 Hours 02/09/21 02/10/21 02/11/21 23:59 23:59 23:59 Intake Total 1480 / 1630 1289.75 / 1409.75 120 / 120 Output Total 1650 / 2300 2400 / 2400 400 / 400 Balance -170 / -670 -1110.25 / -990.25 -280 / -280 Lab / Micro Data Result Diagrams: 02/11/21 03:45 02/11/21 03:45 Labs: Laboratory Results - last 24 hr 02/11/21 03:45: WBC 12.1 H, RBC 5.29, Hgb 14.2, Hct 43.7, MCV 82.6, MCH 26.8 L, MCHC 32.5, RDW Std Deviation 38.4, RDW Coeff of Al 12.6, Plt Count 366, MPV 10.8 02/11/21 03:45: Sodium 135 L, Potassium 4.2, Chloride 101, Carbon Dioxide 28.0, Anion Gap 6, BUN 23 H, Creatinine 0.91, Estim Creat Clear Calc 103.35, Est GFR (MDRD) Af Amer 119, Est GFR (MDRD) Non-Af 98, BUN/Creatinine Ratio 25.4 H, Glucose 119 H, Calcium 8.8, Total Bilirubin 0.50, AST 38 H, ALT 248 H, Alkaline Phosphatase 48, Total Protein 7.8, Albumin 2.7 L, Globulin 5.1 H, Albumin/Globulin Ratio 0.5 L Micro: Microbiology 02/06/21 15:40 Sputum, Expectorated/Coughed Gram Stain - Final 02/06/21 15:40 Sputum, Expectorated/Coughed Respiratory Culture - Final Haemophilus parainfluenzae 02/06/21 11:00 Blood Culture (Wb) - Left Hand Blood Culture - Preliminary No growth in 48 hours. 02/06/21 12:00 Blood Culture (Wb) - Right Hand Blood Culture - Preliminary No growth in 48 hours. 02/06/21 16:10 Urine, Clean Catch Legionella Antigen - Final 02/06/21 16:10 Urine, Random Streptococcus pneumoniae Antigen (M - Final Physical Exam Const alert, oriented x3 and no apparent distress General Appearance: cooperative Exam Limitations: no limitations HEENT normocephalic, head/scalp atraumatic, hearing grossly normal bilaterally and moist oral mucous membranes Head and Scalp: normocephalic Eyes PERRL, EOMs intact bilaterally and conjunctivae normal Neck no lymphadenopathy, supple and no JVD Neck Narrative: Trachea midline, no thyroid enlargement or nodules noted Resp no retractions and no use of accessory muscles Resp Narrative: Tachypneic, diminished breath sounds bibasilarly. No wheezes or crackles. On 12 L of oxygen. Auscultation: crackles and wheezes; Negative for rales or rhonchi Cardio regular rate, regular rhythm, S1 normal heart sound, S2 normal heart sound, no murmurs, no rub, no gallops, no clicks and no JVD Cardio Narrative: Tachycardic. GI normal to inspection, nondistended, normoactive bowel sounds, soft to palpation, non-tender and non-distended Extremity normal to inspection, full ROM and no clubbing, cyanosis or edema Skin no rashes or lesions noted, no wounds, skin turgor normal, no jaundice, no petechiae and no mottling Neuro oriented x3, CN's II-XII intact bilaterally, moves all extremities and no focal motor deficits Sensorium / Orientation: awake and alert Speech: speech normal Psych affect normal Assessment & Plan Assessment/Plan (1) Acute respiratory failure with hypoxia: (2) 2019 novel coronavirus-infected pneumonia (NCIP): PLAN: #Acute hypoxic respiratory failure due to COVID 19 pneumonia * on 12L of oxygen today * still remains short of breath * breathing treatment with bronchodilators * titrate oxygen to maintain sats >90% * on baricitinib and decadron * pulmonology on board. * on zinc and vitamin c * diuretics prn to maintain euvolemia * #Covid 19 pneumonia: as above #Hyperglycemia * steroid induced. On ISS. Accuchecks ACHS * #DVT prophylaxis: lovenox 40mg bid. Charges/Coding Visit Charges Inpatient E&M: 77714 Subs Hosp L3
[2021-02-11] MEDS: Furosemide 40 MG/4 ML Vial IV (08:12)
[2021-02-11] MEDS: Ascorbic Acid 500 MG Tablet 1000 MG PO (08:13)
[2021-02-11] MEDS: Enoxaparin 40 MG/0.4 ML Syringe SC ×2 (08:19→21:31)
[2021-02-11] MEDS: dexAMETHasone 4 MG Tablet 6 MG PO (08:19)
--- NOTE | 2021-02-11 10:54 | CHAPLAIN ---
Type of Pastoral Visit ___ Initial Visit ___ Follow-up Visit ___ On-call Visit ___ General Patient Visit ___ Spiritual Assessment ___ Family Conference ___ Bereavement ___ Rapid Response ___ Code Blue _x__ Other (describe below) Pastoral Care Referral From _x__ Patient ___ Family _x__ Nurse ___ Physician _x__ Sales Representative Education Courses ___ Sewing Machine Repairer Helper ___ Other (describe below) Sacrament/Intervention _x__ Active listening ___ Anointing ___ Restorationist ___ Bereavement ___ Communion ___ Martita exploration ___ ___ Life review _x__ Prayer ___ Reconciliation ___ Sacrament of Sick _x__ Supportive presence ___ Wedding ___ Other (describe below) Pastoral Comments phone call made yesterday 02/10 - several attempts for the phone to work or be within reaching distance of patient; pt admits to some discouragement; pt is eager to talk and speaks of his desire to be home, his good family and scientology support through prayers; pt welcomes opportunity for connection and prayer
--- NOTE | 2021-02-11 16:34 | NURSING ---
report called to med-surg for transfer to room 308, informed
[2021-02-11] MEDS: QUEtiapine 25 MG Tablet 50 MG PO (21:29)
[2021-02-11] MEDS: MELATONIN 3 MG TABLET 6 MG PO (21:30)
[2021-02-12] VITALS (12 sets, daily range): BP systolic 102–140; BP diastolic 45–81; PULSE 68–96; RESP 20–24; TEMP 36.6–37.2; O2SAT 89–96
[2021-02-12] MEDS: guaiFENesin 10 ML UDC (200MG/10ML) 20 ML PO ×4 (04:34→20:54)
--- NOTE | 2021-02-12 07:30 | PN.HOSP_ITS ---
Subjective Subjective Patient seen and examined. He had no active events overnight. He feels his shortness of breath is improving, though he remains on 15L of oxygen. Review of systems otherwise negative. He has remained hemodynamically stable. Objective Data Objective Data Vital Signs: Vital Signs Temp Pulse Resp BP Pulse Ox 98.6 F 68 22 H 104/63 93 02/12/21 04:26 02/12/21 04:26 02/12/21 04:26 02/12/21 04:26 02/12/21 04:30 Oxygen Flow Rate (L/min) 15 Oxygen Delivery Method Nasal Cannula Weight: 172 lb 9.951 oz Body Mass Index (BMI) 27.2 Intake & Output: Intake and Output for Last 24 Hours 02/10/21 02/11/21 02/12/21 23:59 23:59 23:59 Intake Total 1289.75 / 1409.75 770 / 770 100 / 100 Output Total 2400 / 2400 1650 / 1650 Balance -1110.25 / -990.25 -880 / -880 100 / 100 Lab / Micro Data Result Diagrams: 02/11/21 03:45 02/11/21 03:45 Micro: Microbiology 02/06/21 11:00 Blood Culture (Wb) - Left Hand Blood Culture - Final No growth in 5 days. 02/06/21 12:00 Blood Culture (Wb) - Right Hand Blood Culture - Final No growth in 5 days. 02/06/21 15:40 Sputum, Expectorated/Coughed Gram Stain - Final 02/06/21 15:40 Sputum, Expectorated/Coughed Respiratory Culture - Final Haemophilus parainfluenzae 02/06/21 16:10 Urine, Clean Catch Legionella Antigen - Final 02/06/21 16:10 Urine, Random Streptococcus pneumoniae Antigen (M - Final Physical Exam Const alert, oriented x3 and no apparent distress General Appearance: cooperative Exam Limitations: no limitations HEENT normocephalic, head/scalp atraumatic, hearing grossly normal bilaterally and moist oral mucous membranes Head and Scalp: normocephalic Eyes PERRL, EOMs intact bilaterally and conjunctivae normal Neck no lymphadenopathy, supple and no JVD Resp Resp Narrative: Tachypneic, diminished breath sounds bibasilarly. No wheezes or crackles. On 15 L of oxygen. Cardio regular rate, regular rhythm, S1 normal heart sound, S2 normal heart sound, no murmurs, no rub, no gallops, no clicks and no JVD Cardio Narrative: Tachycardic. GI normal to inspection, nondistended, normoactive bowel sounds, soft to palpation, non-tender and non-distended Extremity normal to inspection, full ROM and no clubbing, cyanosis or edema Peripheral Pulses: Yes pulses 2+ throughout Skin no rashes or lesions noted, no wounds, skin turgor normal, no jaundice, no petechiae and no mottling Neuro oriented x3, CN's II-XII intact bilaterally, moves all extremities and no focal motor deficits Sensorium / Orientation: awake and alert Speech: speech normal Psych affect normal Assessment & Plan Assessment/Plan (1) Acute respiratory failure with hypoxia: (2) 2019 novel coronavirus-infected pneumonia (NCIP): PLAN: #Acute hypoxic respiratory failure due to COVID 19 pneumonia * on 15L of oxygen today * still remains short of breath * breathing treatment with bronchodilators * titrate oxygen to maintain sats >90% * on baricitinib and decadron * pulmonology on board. * on zinc and vitamin c * diuretics prn to maintain euvolemia * #Covid 19 pneumonia: as above #Hyperglycemia * steroid induced. On ISS. Accuchecks ACHS * #DVT prophylaxis: lovenox 40mg bid. Charges/Coding Visit Charges Inpatient E&M: 04767 Subs Hosp L3
[2021-02-12] MEDS: dexAMETHasone 4 MG Tablet 6 MG PO (10:20)
[2021-02-12] MEDS: Enoxaparin 40 MG/0.4 ML Syringe SC ×2 (10:20→20:54)
[2021-02-12] MEDS: Ascorbic Acid 500 MG Tablet 1000 MG PO (10:21)
--- NOTE | 2021-02-12 11:31 | NURSING ---
Updated patient's . She states she would like an update from the doctor. Info was sent to Dr. Stokes.
--- NOTE | 2021-02-12 11:56 | PN.CC_ITS ---
Assessment & Plan Assessment/Plan (1) Acute respiratory failure with hypoxia: (2) 2019 novel coronavirus-infected pneumonia (NCIP): PLAN: RECOMMENDATIONS: 1. Wean supplemental oxygen to maintain saturations at or above 90%. 2. Continue Decadron, Lovenox and baricitinib to complete treatment courses. 3. Continue zinc, vitamin C and scheduled mucolytic therapy. 4. Will defer need for additional diuretic therapy to hospitalist. 5. Complete 7-day treatment course of antimicrobials. 6. Encourage incentive spirometer use and mobilize patient as tolerated. 7. Given the patient's lack of further ICU needs, will sign off. Please call with any additional questions. IMPRESSIONS: 1. Acute hypoxic respiratory failure secondary to COVID-19 pneumonia Respiratory status is stable at this time on nasal cannula supplemental oxygen, which will be continued to maintain saturations at or above 90%. Remdesivir was discontinued due to liver function studies. The patient will be continued on Decadron, Lovenox and baricitinib. Liver function has subsequently improved. Continue vitamin C, zinc and scheduled mucolytic therapy. Encourage incentive spirometer use and mobilize patient as tolerated. Continue antimicrobials to complete 7-day treatment course. Continue diuretic therapy as needed to maintain euvolemic state. 2. Unvaccinated status Complicates care, management, recovery and prognosis. Continue supportive measures as noted above. This note was generated with [employer] dictation software. It may contain incorrect words, spelling, and punctuation that were not noted in checking the note before signing. Subjective Subjective The patient was seen and examined at the bedside this morning. Events from the last 24 hours have been reviewed. The patient is currently afebrile, hemodynamically stable and maintaining appropriate oxygen saturations on 15 L/min via nasal cannula. The patient is currently documented to be overall net -3.2 L for the hospitalization. The patient remains on antimicrobials, Decadron, prophylactic Lovenox and baricitinib. Objective Data Objective Data The patient's most recent lab work, culture data and imaging studies have all been personally reviewed. Blood cultures have demonstrated no growth to date. Sputum culture is growing Haemophilus parainfluenza. Vital Signs: Vital Signs Temp Pulse Resp BP Pulse Ox 98 F 95 22 H 140/74 H 89 02/12/21 10:18 02/12/21 10:18 02/12/21 10:18 02/12/21 10:18 02/12/21 10:18 Oxygen Flow Rate (L/min) 15 Oxygen Delivery Method Nasal Cannula Weight: 78.3 kg Body Mass Index (BMI) 27.2 Intake & Output: Intake and Output for Last 24 Hours 02/10/21 02/11/21 02/12/21 23:59 23:59 23:59 Intake Total 1289.75 / 1409.75 770 / 770 150 / 150 Output Total 2400 / 2400 1650 / 1650 Balance -1110.25 / -990.25 -880 / -880 150 / 150 Lab / Micro Data Attestation: I reviewed the patient's lab results. Result Diagrams: 02/11/21 03:45 02/11/21 03:45 Micro: Microbiology 02/06/21 11:00 Blood Culture (Wb) - Left Hand Blood Culture - Final No growth in 5 days. 02/06/21 12:00 Blood Culture (Wb) - Right Hand Blood Culture - Final No growth in 5 days. 02/06/21 15:40 Sputum, Expectorated/Coughed Gram Stain - Final 02/06/21 15:40 Sputum, Expectorated/Coughed Respiratory Culture - Final Haemophilus parainfluenzae 02/06/21 16:10 Urine, Clean Catch Legionella Antigen - Final 02/06/21 16:10 Urine, Random Streptococcus pneumoniae Antigen (M - Final Physical Exam Const alert, oriented x3 and no apparent distress General Appearance: cooperative HEENT normocephalic, head/scalp atraumatic and moist oral mucous membranes Eyes PERRL, EOMs intact bilaterally and conjunctivae normal Neck supple General: trachea midline Chest inspection of chest normal Resp Effort and Inspection: able to speak in complete sentences Auscultation: diminished lung sounds; Negative for rales, rhonchi or wheezes Cardio regular rate and regular rhythm GI normal to inspection, nondistended, normoactive bowel sounds Extremity no clubbing, cyanosis or edema Skin no rashes or lesions noted Neuro moves all extremities and no focal motor deficits Psych cooperative and affect normal Charges/Coding Visit Charges Inpatient E&M: 79920 Subs Hosp L2
[2021-02-12] MEDS: QUEtiapine 25 MG Tablet 50 MG PO ×2 (12:04→20:53)
--- NOTE | 2021-02-12 13:34 | CASEMGMT ---
SW met w/pt in room, offered support. Pt still expressing frustration w/situation and the slowness of progress. Pt spoke about his family, they are all recovering, his is going back to work. SW will continue to follow and be available for support to pt as needed. GINA Becerra
[2021-02-12] MEDS: MELATONIN 3 MG TABLET 6 MG PO (20:55)
[2021-02-13] VITALS (10 sets, daily range): BP systolic 114–138; BP diastolic 70–80; PULSE 73–99; RESP 18–22; TEMP 36.6–36.9; O2SAT 91–96
[2021-02-13] MEDS: guaiFENesin 10 ML UDC (200MG/10ML) 20 ML PO ×4 (05:51→23:26)
--- NOTE | 2021-02-13 07:54 | PN.HOSP_ITS ---
Subjective Subjective Patient seen and examined. He has no active complaints today, and is just frustrated he is still in the hospital. He is on 15L of oxygen by nasal canula. Review of systems otherwise negative. Objective Data Objective Data Vital Signs: Vital Signs Temp Pulse Resp BP Pulse Ox 98.3 F 73 20 H 114/70 92 02/13/21 02:25 02/13/21 02:25 02/13/21 02:25 02/13/21 02:25 02/13/21 02:35 Oxygen Flow Rate (L/min) 14 Oxygen Delivery Method Nasal Cannula Weight: 172 lb 9.951 oz Body Mass Index (BMI) 27.2 Intake & Output: Intake and Output for Last 24 Hours 02/11/21 02/12/21 02/13/21 23:59 23:59 23:59 Intake Total 770 / 770 158.75 / 158.75 600 / 600 Output Total 1650 / 1650 Balance -880 / -880 158.75 / 158.75 600 / 600 Lab / Micro Data Result Diagrams: 02/11/21 03:45 02/11/21 03:45 Micro: Microbiology 02/06/21 11:00 Blood Culture (Wb) - Left Hand Blood Culture - Final No growth in 5 days. 02/06/21 12:00 Blood Culture (Wb) - Right Hand Blood Culture - Final No growth in 5 days. 02/06/21 15:40 Sputum, Expectorated/Coughed Gram Stain - Final 02/06/21 15:40 Sputum, Expectorated/Coughed Respiratory Culture - Final Haemophilus parainfluenzae 02/06/21 16:10 Urine, Clean Catch Legionella Antigen - Final 02/06/21 16:10 Urine, Random Streptococcus pneumoniae Antigen (M - Final Physical Exam Const alert, oriented x3 and no apparent distress General Appearance: cooperative Exam Limitations: no limitations HEENT normocephalic, head/scalp atraumatic, hearing grossly normal bilaterally and moist oral mucous membranes Head and Scalp: normocephalic Eyes PERRL, EOMs intact bilaterally and conjunctivae normal Neck no lymphadenopathy, supple and no JVD Resp no retractions and no use of accessory muscles Resp Narrative: Tachypneic, diminished breath sounds bibasilarly. No wheezes or crackles. On 14 L of oxygen. Auscultation: crackles and wheezes; Negative for rales or rhonchi Cardio regular rate, regular rhythm, S1 normal heart sound, S2 normal heart sound, no murmurs, no rub, no gallops, no clicks and no JVD Cardio Narrative: Tachycardic. GI normal to inspection, nondistended, normoactive bowel sounds, soft to palpation, non-tender and non-distended Extremity normal to inspection, full ROM and no clubbing, cyanosis or edema Peripheral Pulses: Yes pulses 2+ throughout Skin no rashes or lesions noted, no wounds, skin turgor normal, no jaundice, no petechiae and no mottling Neuro oriented x3, CN's II-XII intact bilaterally, moves all extremities and no focal motor deficits Sensorium / Orientation: awake and alert Speech: speech normal Psych affect normal Assessment & Plan Assessment/Plan (1) Acute respiratory failure with hypoxia: (2) 2019 novel coronavirus-infected pneumonia (NCIP): PLAN: #Acute hypoxic respiratory failure due to COVID 19 pneumonia * on 14L of oxygen today. * still tachypneic * breathing treatment with bronchodilators * titrate oxygen to maintain sats >90% * on baricitinib and decadron * pulmonology on board. * on zinc and vitamin c * diuretics prn to maintain euvolemia * #Covid 19 pneumonia: as above #Hyperglycemia * steroid induced. On ISS. Accuchecks ACHS * #DVT prophylaxis: lovenox 40mg bid. Charges/Coding Visit Charges Inpatient E&M: 07027 Subs Hosp L2
[2021-02-13] MEDS: dexAMETHasone 4 MG Tablet 6 MG PO (10:19)
[2021-02-13] MEDS: Ascorbic Acid 500 MG Tablet 1000 MG PO (10:19)
[2021-02-13] MEDS: Enoxaparin 40 MG/0.4 ML Syringe SC ×2 (10:20→20:56)
[2021-02-13] MEDS: QUEtiapine 25 MG Tablet 50 MG PO ×2 (10:21→20:56)
[2021-02-13] MEDS: 0.9% Saline Lock 10 ML Syringe IV (10:22)
--- NOTE | 2021-02-13 11:35 | NURSING ---
called ellie and gave update on pt
[2021-02-14] VITALS (11 sets, daily range): BP systolic 112–147; BP diastolic 55–77; PULSE 66–100; RESP 18–24; TEMP 36.6–36.8; O2SAT 5–95
[2021-02-14] MEDS: guaiFENesin 10 ML UDC (200MG/10ML) 20 ML PO ×4 (05:43→23:09)
[2021-02-14] MEDS: 0.9% Saline Lock 10 ML Syringe IV (10:03)
[2021-02-14] MEDS: Ascorbic Acid 500 MG Tablet 1000 MG PO (10:04)
[2021-02-14] MEDS: dexAMETHasone 4 MG Tablet 6 MG PO (10:04)
[2021-02-14] MEDS: Enoxaparin 40 MG/0.4 ML Syringe SC ×2 (10:05→21:00)
[2021-02-14] MEDS: QUEtiapine 25 MG Tablet 50 MG PO ×2 (10:06→21:01)
--- NOTE | 2021-02-14 11:10 | NURSING ---
pt had repeat of coughing episode that occurred yesterday am approx. same time after breakfast, POX dropping to 86-88-dry cough is non productive but like yesterday, his pox drops, o2 increased to 8l and pt encouraged to get back in bed and lie prone which seemed to help and pox elevated to 96% and o2 lowered to 5l via n/c and pt tolerating well
--- NOTE | 2021-02-14 11:22 | NURSING ---
pox is 93% on room air, pt resting in prone position
--- NOTE | 2021-02-14 12:37 | PN.HOSP_ITS ---
Subjective Subjective Patient seen and examined. He feels much better today. He is down to 8 L of oxygen and feels like he has improved markedly. He still coughing but says is better than before. Review of symptoms otherwise negative. He is mildly tachypneic but vitals otherwise stable. Objective Data Objective Data Vital Signs: Vital Signs Temp Pulse Resp BP Pulse Ox 98.1 F 100 22 H 134/69 H 5 02/14/21 10:00 02/14/21 10:00 02/14/21 11:15 02/14/21 10:00 02/14/21 11:15 Oxygen Flow Rate (L/min) [ 6 AMBULATING with Oxygen #2] Oxygen Flow Rate (L/min) [ 4 AMBULATING with Oxygen #1] Oxygen Flow Rate (L/min) [At 2 REST with Oxygen] Oxygen Flow Rate (L/min) 94 Oxygen Delivery Method Nasal Cannula Weight: 181 lb 10.574 oz Body Mass Index (BMI) 27.2 Intake & Output: Intake and Output for Last 24 Hours 02/12/21 02/13/21 02/14/21 23:59 23:59 23:59 Intake Total 158.75 / 158.75 650 / 650 50 / 50 Balance 158.75 / 158.75 650 / 650 50 / 50 Lab / Micro Data Result Diagrams: 02/11/21 03:45 02/11/21 03:45 Micro: Microbiology 02/06/21 11:00 Blood Culture (Wb) - Left Hand Blood Culture - Final No growth in 5 days. 02/06/21 12:00 Blood Culture (Wb) - Right Hand Blood Culture - Final No growth in 5 days. 02/06/21 15:40 Sputum, Expectorated/Coughed Gram Stain - Final 02/06/21 15:40 Sputum, Expectorated/Coughed Respiratory Culture - Final Haemophilus parainfluenzae 02/06/21 16:10 Urine, Clean Catch Legionella Antigen - Final 02/06/21 16:10 Urine, Random Streptococcus pneumoniae Antigen (M - Final Physical Exam Const alert, oriented x3 and no apparent distress General Appearance: cooperative Exam Limitations: no limitations HEENT normocephalic, head/scalp atraumatic, hearing grossly normal bilaterally and moist oral mucous membranes Head and Scalp: normocephalic Eyes PERRL, EOMs intact bilaterally and conjunctivae normal Neck no lymphadenopathy, supple and no JVD Resp no retractions and no use of accessory muscles Resp Narrative: Tachypneic, diminished breath sounds bibasilarly. No wheezes or crackles. On 8 L of oxygen. Auscultation: crackles and wheezes; Negative for rales or rhonchi Cardio regular rate, regular rhythm, S1 normal heart sound, S2 normal heart sound, no murmurs, no rub, no gallops, no clicks and no JVD Cardio Narrative: Tachycardic. GI normal to inspection, nondistended, normoactive bowel sounds, soft to palpation, non-tender and non-distended Extremity normal to inspection, full ROM and no clubbing, cyanosis or edema Peripheral Pulses: Yes pulses 2+ throughout Skin no rashes or lesions noted, no wounds, skin turgor normal, no jaundice, no petechiae and no mottling Neuro oriented x3, CN's II-XII intact bilaterally, moves all extremities and no focal motor deficits Sensorium / Orientation: awake and alert Speech: speech normal Psych affect normal Assessment & Plan Assessment/Plan (1) Acute respiratory failure with hypoxia: (2) 2019 novel coronavirus-infected pneumonia (NCIP): PLAN: #Acute hypoxic respiratory failure due to COVID 19 pneumonia * down to 8L of oxygen today. Feels much better. * breathing treatment with bronchodilators * titrate oxygen to maintain sats >90% * on baricitinib and decadron * pulmonology on board. * on zinc and vitamin c * diuretics prn to maintain euvolemia * #Covid 19 pneumonia: as above #Hyperglycemia * steroid induced. * On ISS. Accuchecks ACHS * #DVT prophylaxis: lovenox 40mg bid. Disposition: for likely discharge tomorrow. Charges/Coding Visit Charges Inpatient E&M: 36254 Subs Hosp L2
--- NOTE | 2021-02-14 15:50 | CASEMGMT ---
Social Work Note SW in to speak with pt and provided support to pt. Pt states he is doing good, states he is hoping to be discharged home tomorrow. Pt denied additional needs or concerns at this time. Rita Hou WEB WORKER, ELECTRONIC ASSEMBLY
[2021-02-15 04:00] VITALS: BP 122/71; PULSE 54; RESP 18; TEMP 36.9; O2SAT 92
[2021-02-15] MEDS: guaiFENesin 10 ML UDC (200MG/10ML) 20 ML PO ×4 (06:07→23:23)
[2021-02-15 07:00] VITALS: O2SAT 94
[2021-02-15] MEDS: Ascorbic Acid 500 MG Tablet 1000 MG PO (08:23)
[2021-02-15 09:44] VITALS: BP 125/71; PULSE 97; RESP 18; TEMP 36.8; O2SAT 94
[2021-02-15 10:01] VITALS: O2SAT 84; O2SAT 86; O2SAT 91
[2021-02-15] MEDS: dexAMETHasone 4 MG Tablet 6 MG PO (10:08)
[2021-02-15] MEDS: Enoxaparin 40 MG/0.4 ML Syringe SC ×2 (10:09→21:06)
[2021-02-15] MEDS: QUEtiapine 25 MG Tablet 50 MG PO ×2 (10:10→21:06)
--- NOTE | 2021-02-15 12:29 | PN.HOSP_ITS ---
Subjective Subjective Patient seen and examined. He feels better today. He however still gets short of breath with exertion. Review of systems is otherwise negative. Objective Data Objective Data Vital Signs: Vital Signs Temp Pulse Resp BP Pulse Ox 98.3 F 97 18 125/71 H 86 02/15/21 09:44 02/15/21 09:44 02/15/21 09:44 02/15/21 09:44 02/15/21 10:01 Oxygen Flow Rate (L/min) [ 6 AMBULATING with Oxygen #2] Oxygen Flow Rate (L/min) [ 4 AMBULATING with Oxygen #1] Oxygen Flow Rate (L/min) [At 2 REST with Oxygen] Oxygen Flow Rate (L/min) 4 Oxygen Delivery Method Nasal Cannula Weight: 178 lb 9.191 oz Body Mass Index (BMI) 27.2 Intake & Output: Intake and Output for Last 24 Hours 02/13/21 02/14/21 02/15/21 23:59 23:59 23:59 Intake Total 650 / 650 50 / 50 120 / 120 Balance 650 / 650 50 / 50 120 / 120 Lab / Micro Data Result Diagrams: 02/11/21 03:45 02/11/21 03:45 Micro: Microbiology 02/06/21 11:00 Blood Culture (Wb) - Left Hand Blood Culture - Final No growth in 5 days. 02/06/21 12:00 Blood Culture (Wb) - Right Hand Blood Culture - Final No growth in 5 days. 02/06/21 15:40 Sputum, Expectorated/Coughed Gram Stain - Final 02/06/21 15:40 Sputum, Expectorated/Coughed Respiratory Culture - Final Haemophilus parainfluenzae 02/06/21 16:10 Urine, Clean Catch Legionella Antigen - Final 02/06/21 16:10 Urine, Random Streptococcus pneumoniae Antigen (M - Final Physical Exam Const alert, oriented x3 and no apparent distress General Appearance: cooperative Exam Limitations: no limitations HEENT normocephalic, head/scalp atraumatic, hearing grossly normal bilaterally and moist oral mucous membranes Head and Scalp: normocephalic Eyes PERRL, EOMs intact bilaterally and conjunctivae normal Neck no lymphadenopathy, supple and no JVD Resp no retractions and no use of accessory muscles Resp Narrative: Tachypneic, diminished breath sounds bibasilarly. No wheezes or crackles. On 4 L of oxygen. Auscultation: crackles and wheezes; Negative for rales or rhonchi Cardio regular rate, regular rhythm, S1 normal heart sound, S2 normal heart sound, no murmurs, no rub, no gallops, no clicks and no JVD GI normal to inspection, nondistended, normoactive bowel sounds, soft to palpation, non-tender and non-distended Extremity normal to inspection, full ROM and no clubbing, cyanosis or edema Peripheral Pulses: Yes pulses 2+ throughout Skin no rashes or lesions noted, no wounds, skin turgor normal, no jaundice, no petechiae and no mottling Neuro oriented x3, CN's II-XII intact bilaterally, moves all extremities and no focal motor deficits Sensorium / Orientation: awake and alert Speech: speech normal Psych affect normal Assessment & Plan Assessment/Plan (1) Acute respiratory failure with hypoxia: (2) 2019 novel coronavirus-infected pneumonia (NCIP): PLAN: #Acute hypoxic respiratory failure due to COVID 19 pneumonia * down to 4L of oxygen today. He still gets tachypneic and short of breath with exertion. * breathing treatment with bronchodilators * titrate oxygen to maintain sats >90% * on baricitinib and decadron * pulmonology on board. * on zinc and vitamin c * diuretics prn to maintain euvolemia * required 6L with walking pulse ox, and was only 90% and got tachypneic. I do think it is prudent to keep the patient for at least one more day to help him get better. * #Covid 19 pneumonia: as above #Hyperglycemia * steroid induced. * On ISS. Accuchecks ACHS * #DVT prophylaxis: lovenox 40mg bid. Disposition: for likely discharge tomorrow. Charges/Coding Visit Charges Inpatient E&M: 18711 Subs Hosp L2
[2021-02-15 15:02] VITALS: BP 124/73; PULSE 85; RESP 18; TEMP 36.6; O2SAT 92
[2021-02-15 20:57] VITALS: BP 136/79; PULSE 86; RESP 18; TEMP 36.6; O2SAT 92
[2021-02-16 02:54] VITALS: BP 113/65; PULSE 75; RESP 18; TEMP 36.7; O2SAT 92
[2021-02-16] MEDS: guaiFENesin 10 ML UDC (200MG/10ML) 20 ML PO ×2 (06:10→11:26)
[2021-02-16 07:57] VITALS: O2SAT 93
[2021-02-16 08:45] VITALS: BP 144/67; PULSE 105; RESP 18; TEMP 36.8; O2SAT 89
[2021-02-16 09:47] VITALS: O2SAT 86; O2SAT 88; O2SAT 89; O2SAT 90
[2021-02-16] MEDS: Ascorbic Acid 500 MG Tablet 1000 MG PO (09:56)
[2021-02-16] MEDS: Enoxaparin 40 MG/0.4 ML Syringe SC (09:56)
[2021-02-16] MEDS: QUEtiapine 25 MG Tablet 50 MG PO (09:57)
[2021-02-16] MEDS: dexAMETHasone 4 MG Tablet 6 MG PO (09:57)
--- NOTE | 2021-02-16 11:08 | DS.PCM_ITS ---
Providers Date of Admission: 02/06/21 Primary Care Physician: Dr. Stanislaw Cm MD Consultations 02/06/21 13:54 Consult: Infectious Disease Routine Consulting Provider: Juan Link Reason for Consult: COVID-19-? Baricitinib EMERGENT Consult: No Notified: Yes Date Notified: 02/06/21 Time Notified: 14:09 Method of Notification: Text Consult: Clinical Evaluator / Pulmonary Medicine Routine Consulting Provider: Pulmonary Medicine [facility]ani [place] Reason for Consult: COVID-19 EMERGENT Consult: No Notified: Yes Date Notified: 02/06/21 Time Notified: 12:53 Method of Notification: Verbal Reason For Visit: ACUTE HYPOXIC RESPIRATORY FAILURE SECONDARY Diagnosis Discharge Diagnosis (1) Acute respiratory failure with hypoxia: Status: Acute Code(s): J96.01 - Acute respiratory failure with hypoxia (2) 2019 novel coronavirus-infected pneumonia (NCIP): Status: Acute Code(s): U07.1 - COVID-19; J12.82 - Pneumonia due to coronavirus disease 2019 Medications at Discharge Home Medications ondansetron 4 mg PO Q8H PRN PRN #20 tab 02/03/21 Hospital Course Operations None Procedures None Summary of Care Provided Minutes Spent on Discharge: 50 Hospital Course: Patient is a 40-year-old male with a past medical history as outlined was admitted through the ED on 02/06/2021 with a complaint of worsening shortness of breath. He had been diagnosed on the Wednesday before admission with a complaint of shortness of breath and was diagnosed with COVID-19 infection. His symptoms are started about 9 days before presentation, on approximately January 28, 2021. When was seen in the ED, he was sent home on steroids and breathing treatments and had been doing well but subsequently got more short of breath and came into the ED. Patient had not been vaccinated against COVID-19. D-dimer will was not elevated and chest x-ray showed bilateral patchy groundglass infiltrates. He was admitted initially to the ICU and managed for acute hypoxic respiratory failure due to COVID-19 pneumonia. He was saturating on room air at 84% and required 10 L of oxygen to increase his saturation to 93%. He subsequently required air Vo. Patient was placed on dexamethasone and remdesivir as well as baricitinib. He was also given vitamin C and zinc. Sputum culture was positive for haemophilus and he was started on antibiotics. Remdesivir was subsequently discontinued on account of rising LFTs. He completed a 7-day course of antimicrobials. He was given diuretics intermittently to help maintain euvolemic status. Patient's oxygen gradually trended down to 2 L of oxygen and he remained stable. He had walking pulse ox o n 02/16/2021 which showed that he required 4 L of oxygen with ambulation. Patient was discharged home on 02/16/2021 on 4 L of oxygen and encouraged to remain in isolation till February 17, 2021 to complete a 20-day course of self- isolation since symptoms started. Patient seen and examine prior to discharge. He felt much bettter and had no complaints. He said he had been on room air for most of the night and felt he did well. Review of systems otherwise negative. Labs and vitals reviewed. Home m eds reviewed and reconciled. Physical Exam Narrative General: Alert, Oriented x3, Cooperative HEENT: Atraumatic, PERRLA, EOMI, Normocephalic Oral: No Gingival or Mucosal Lesions/ Ulcerations Neck: Supple, No JVD, Negative Carotid Bruits Lungs: Air entry diminished in bilateral lung bases. Mild tachypnea. No crepitations. Cardiovascular: Sinus rhythm, Normal S1, Normal S2, No murmurs Abdomen: Bowel Sounds Present, Soft, Non Tender, Non-Distended : No renal angle tenderness. No suprapubic tenderness. Extremities: No edema, Capillary Refill Less than 3 Seconds Skin: No rashes, No breakdown Musculoskeletal: No Tenderness to Palpation of Joints or Extremities Neurological: Cranial nerves II-XII grossly intact, DTR 2+/4 and Symmetrical, Neuro grossly intact Psych/Mental Status: Normal Affect, Appropriate. Const alert, oriented x3 and no apparent distress General Appearance: cooperative Exam Limitations: no limitations HEENT normocephalic, head/scalp atraumatic, hearing grossly normal bilaterally and moist oral mucous membranes Eyes PERRL, EOMs intact bilaterally and conjunctivae normal Neck no lymphadenopathy, supple and no JVD Resp no retractions and no use of accessory muscles Resp Narrative: diminished breath sounds bibasilarly. No wheezes or crackles. On 2L of oxygen. Auscultation: crackles and wheezes; Negative for rales or rhonchi Cardio regular rate, regular rhythm, S1 normal heart sound, S2 normal heart sound, no murmurs, no rub, no gallops, no clicks and no JVD GI normal to inspection, nondistended, normoactive bowel sounds, soft to palpation, non-tender and non-distended Extremity normal to inspection, full ROM and no clubbing, cyanosis or edema Skin no rashes or lesions noted, no wounds, skin turgor normal, no jaundice, no petechiae and no mottling Neuro oriented x3, CN's II-XII intact bilaterally, moves all extremities and no focal motor deficits Sensorium / Orientation: awake and alert Speech: speech normal Psych affect normal Weight / BMI Weight Weight: 175 lb 4.28 oz Body Mass Index (BMI) 27.2 ABG / Lab / Microbiology Data Result Diagrams: 02/11/21 03:45 02/11/21 03:45 Microbiology: Microbiology 02/06/21 11:00 Blood Culture (Wb) - Left Hand Blood Culture - Final No growth in 5 days. 02/06/21 12:00 Blood Culture (Wb) - Right Hand Blood Culture - Final No growth in 5 days. 02/06/21 15:40 Sputum, Expectorated/Coughed Gram Stain - Final 02/06/21 15:40 Sputum, Expectorated/Coughed Respiratory Culture - Final Haemophilus parainfluenzae 02/06/21 16:10 Urine, Clean Catch Legionella Antigen - Final 02/06/21 16:10 Urine, Random Streptococcus pneumoniae Antigen (M - Final D/C Instructions Discharge Diet: No restrictions Discharge Activity: Return to Normal Activity Call your doctor if you observe: Fever of 101 or Higher, Shortness of breath, Dizziness, Swelling in the ankles, Chest pain and Increased palpitations (irregular heartbeat) Meaningful Use Info Meaningful Use Diagnoses (Choose all that apply): None applicable Discharge Plan Admission Admit Date/Time: 02/06/21 12:44 Primary Reason for Your Visit: acute hypoxic respiratory failure, COVID 19 pneumonia Attending Provider: Ruthie Stokes Primary Care Provider: Stanislaw Cm Consulting Providers: Juan Link ; Arpan Hdz ; Juvenal Doll ; Helen Elias [facility] [employer] [facility] Instructions Patient Instructions: Coronavirus Disease 2019 (COVID-19): Overview, Coronavirus Disease 2019 (COVID-19): Prevention, Coronavirus Disease 2019 (COVID-19): Caring for Yourself or Others Additional Instructions / Restrictions: remain in isolation till 02/17/2021 Discharge Orders/Prescriptions Prescriptions: Continued ondansetron 4 mg tablet,disintegrating 4 mg PO Q8H PRN PRN (Reason: Nausea) Qty: 20 RF: 0 Discontinued dexamethasone 6 mg tablet 6 mg PO DAILY Qty: 7 RF: 0 Referrals / Follow Up: Stanislaw Cm MD [Primary Care Provider] - Within 2 Weeks Disposition Disposition (needs filled in before D/C Order can be placed): Home, Self Care Charges/Coding Visit Charges Inpatient E&M: 31981 Disch Hosp
--- NOTE | 2021-02-18 13:50 | CASEMGMT ---
[facility] Discharge Follow Up Phone Call: SHALA: Rowan Strata:2 Call Date: 02/18/21 Discharge Date: 02/16/21 Time of Call:[id number] Duration:3 min Admitting Dx: acute hypoxic resp failure secondary to COVID 19 [facility] completed follow up phone call after recent hospitalization. Pt states he is doing pretty good. States he has days where he feels better and days where he feels worse. He reports being out of quarantine as of yesterday. His O2 has been set up and patient pulse ox is running in the 90's. Pt has not yet made his follow up appt with his PCP but will do so. Pt denies questions or concerns regarding dc instructions or medications.
== END 2021-02-16 11:59 | disposition home or self-care (01) | DRG 177 ==
LOC: ED 12:37 → ICU 13:40 → MS3 02-11 17:42
PROVIDERS: Admitting Provider Internal Medicine; Emergency Provider Emergency Medicine; PCP Family Medicine; Visit Provider Student in an Organized Health Care Education/Training Program
DX: U07.1 COVID-19 (principal); J12.82 Pneumonia due to coronavirus disease 2019; J96.01 Acute respiratory failure with hypoxia; Z28.3 Underimmunization status; R73.9 Hyperglycemia, unspecified; T38.0X5A Adverse effect of glucocorticoids and synthetic analogues, initial encounter; E66.3 Overweight; Z68.27 Body mass index [BMI] 27.0-27.9, adult
CPT/HCPCS: 36415; 71045; 80048; 80053; 83605; 83735; 84100; 85025; 85027; 85379; 87040; 87070; 87077; 87205; 87449; 87641; 93005; 94660; 94667; 94668; 94762; 97110; 97162; 97166; 97530; 97535; 97802; 97803; 99251; 99285; J7030; J7040; J7050; A4216; G0463; J0696; J1940

== ENCOUNTER → 2022-02-13 | Outpatient (CLI) | payer OTHER, SELFPAY ==
[2022-02-13 17:44] LABS: Absolute Lymphocyte Count 2.15 X10^3/uL (0.83-4.51); Basophil# 0.04 X10^3/uL; Basophil% 0.5 % (0-1); Eosinophil# 0.29 X10^3/uL; Eosinophils% 3.6 % (0-5); Hematocrit 43.5 % (40-54); Hemoglobin 14.4 g/dL (13.0-16.5); Lymphocyte # 2.15 X10^3/ul (0.83-4.51); Lymphocyte % 26.8 % (19-41); Mean Corp Hgb Conc 33.1 g/dL (32-36); Mean Corpuscular Hgb 27.5 pg (27.0-32.0); Mean Corpuscular Volume 83.2 fL (80-94); Mean Platelet Vol. 11.6 fl (6.2-12.0); Monocyte# 0.44 X10^3/uL; Monocyte% 5.5 % (0-10); NRBC Flagged by Analyzer 0 % (0-5); Neutrophil # 5.04 X10^3/uL (2.7-7.7); Neutrophil % 62.9 % (47-70); Platelet Count 231 K/mm3 (150-450); RBC Distribution Width CV 13.4 % (11.6-14.6); RBC Distribution Width SD 40.6 fl (35.1-43.9); Red Blood Count 5.23 M/mm3 (4.6-6.2)
[2022-02-13 18:15] LABS: Vitamin B12 441 pg/mL (211-911)
[2022-02-13 18:36] LABS: AST(SGOT) 27 U/L (15-37); Alanine Aminotransfer ALT/SGPT 53 U/L (16-61); Albumin, Serum 3.8 g/dL (3.2-5.0); Alkaline Phosphatase 53 U/L (45-117); Anion Gap 9 (5-15); BUN 26 mg/dL (7-18); BUN/Creat Ratio 18.1 RATIO (10-20); Chloride 108 mmol/L (98-107); Creatinine, Serum 1.44 mg/dL (0.70-1.30); EST Glomerular Filtration Rate 57 mL/min (>60); Est Glom Filt Rate - Afr Amer 69 mL/min (>60); Globulin 3.9 g/dL (2.2-4.2); Glucose 130 mg/dL (74-106); Potassium 3.6 mmol/L (3.5-5.1); Protein, Total 7.7 g/dL (6.4-8.2); Sodium Level 141 mmol/L (136-145); Thyroid Stim Hormone (TSH) 0.34 uIU/mL (0.358-3.74)
[2022-02-20 15:08] LABS: Thyroid Stim Immunoglob <0.10 IU/L (0.00-0.55)
[2022-02-21 13:36] LABS: Anti-Thyroglobulin AB < 1.0 IU/mL (0.0-0.9); Thyroglobulin, Serum Qt. 15.9 ng/mL (1.4-29.2); Thyroid Peroxidase AB 15 IU/mL (0-34)
== END | disposition home or self-care (01) ==
LOC: MFPLAB 15:28
PROVIDERS: PCP Family Medicine; Referring Provider Family Medicine; Visit Provider Family Medicine
DX: E07.89 Other specified disorders of thyroid (principal); E55.9 Vitamin D deficiency, unspecified; F41.9 Anxiety disorder, unspecified; R53.83 Other fatigue
CPT/HCPCS: 36415; 80053; 82306; 82607; 84432; 84439; 84443; 84445; 85025; 86376; 86800

== ENCOUNTER → 2022-02-27 | Outpatient (CLI) | payer OTHER, SELFPAY ==
[2022-02-27 15:28] LABS: Anion Gap 8 (5-15); BUN 17 mg/dL (7-18); BUN/Creat Ratio 16.3 RATIO (10-20); Calcium,Total 9.2 mg/dL (8.5-10.1); Chloride 99 mmol/L (98-107); Creatinine, Serum 1.04 mg/dL (0.70-1.30); EST Glomerular Filtration Rate 83 mL/min (>60); Est Glom Filt Rate - Afr Amer 101 mL/min (>60); Glucose 118 mg/dL (74-106); Potassium 3.5 mmol/L (3.5-5.1); Sodium Level 135 mmol/L (136-145)
[2022-03-03 00:07] LABS: Thyroid Stim Immunoglob <0.10 IU/L (0.00-0.55)
[2022-03-03 17:47] LABS: Anti-Thyroglobulin AB < 1.0 IU/mL (0.0-0.9); Thyroglobulin, Serum Qt. 17.3 ng/mL (1.4-29.2); Thyroid Peroxidase AB < 8 IU/mL (0-34)
== END | disposition home or self-care (01) ==
LOC: MFPLAB 11:55
PROVIDERS: PCP Family Medicine; Referring Provider Family Medicine; Visit Provider Family Medicine
DX: N28.9 Disorder of kidney and ureter, unspecified (principal); E07.89 Other specified disorders of thyroid; R73.09 Other abnormal glucose
CPT/HCPCS: 36415; 80048; 84432; 84445; 86376; 86800

== ENCOUNTER → 2022-06-19 | Outpatient (CLI) | payer OTHER, SELFPAY ==
[2022-06-19 13:03] LABS: Hemoglobin A1c 5.9 % (3.8-5.6)
[2022-06-19 13:38] LABS: Vitamin D,25 Hydroxy 55.1 ng/mL
[2022-06-19 13:39] LABS: ALB/GLOB Ratio 1.2 RATIO (0.9-2.4); AST(SGOT) 26 U/L (15-37); Alanine Aminotransfer ALT/SGPT 42 U/L (16-61); Albumin, Serum 4.2 g/dL (3.2-5.0); Alkaline Phosphatase 50 U/L (45-117); Anion Gap 8 (5-15); BUN 19 mg/dL (7-18); BUN/Creat Ratio 17.4 RATIO (10-20); Calcium,Total 9.5 mg/dL (8.5-10.1); Chloride 104 mmol/L (98-107); Creatinine, Serum 1.09 mg/dL (0.70-1.30); EST Glomerular Filtration Rate 79 mL/min (>60); Est Glom Filt Rate - Afr Amer 95 mL/min (>60); Globulin 3.5 g/dL (2.2-4.2); Glucose 91 mg/dL (74-106); Protein, Total 7.7 g/dL (6.4-8.2); Sodium Level 140 mmol/L (136-145); T4 Free Direct 0.86 ng/dL (0.76-1.46); Thyroid Stim Hormone (TSH) 0.75 uIU/mL (0.358-3.74)
== END | disposition home or self-care (01) ==
LOC: MFPLAB 10:59
PROVIDERS: PCP Family Medicine; Referring Provider Family Medicine; Visit Provider Family Medicine
DX: E55.9 Vitamin D deficiency, unspecified (principal); R79.89 Other specified abnormal findings of blood chemistry; R73.09 Other abnormal glucose
CPT/HCPCS: 36415; 80053; 82306; 83036; 84439; 84443

== ENCOUNTER → 2022-10-30 | Outpatient (CLI) | payer OTHER, SELFPAY ==
[2022-10-30 18:08] LABS: Vitamin D,25 Hydroxy 58.4 ng/mL
[2022-10-30 18:16] LABS: Hemoglobin A1c 5.7 % (3.8-5.6)
[2022-10-30 18:27] LABS: ALB/GLOB Ratio 1.1 RATIO (0.9-2.4); AST(SGOT) 25 U/L (15-37); Alanine Aminotransfer ALT/SGPT 45 U/L (16-61); Alkaline Phosphatase 50 U/L (45-117); Anion Gap 8 (5-15); BUN 19 mg/dL (7-18); BUN/Creat Ratio 19.1 RATIO (10-20); Calcium,Total 9.2 mg/dL (8.5-10.1); Chloride 104 mmol/L (98-107); Creatinine, Serum 0.99 mg/dL (0.70-1.30); EST Glomerular Filtration Rate 87 mL/min (>60); Est Glom Filt Rate - Afr Amer 106 mL/min (>60); Globulin 3.6 g/dL (2.2-4.2); Glucose 80 mg/dL (74-106); Potassium 3.8 mmol/L (3.5-5.1); Protein, Total 7.6 g/dL (6.4-8.2); Sodium Level 138 mmol/L (136-145)
== END | disposition home or self-care (01) ==
LOC: MFPLAB 14:05
PROVIDERS: PCP Family Medicine; Visit Provider Family Medicine
DX: R73.02 Impaired glucose tolerance (oral) (principal); E55.9 Vitamin D deficiency, unspecified
CPT/HCPCS: 36415; 80053; 82306; 83036

== ENCOUNTER → 2023-03-16 | Outpatient (CLI) | payer OTHER, SELFPAY ==
--- NOTE | 2023-03-16 15:57 | RAD_ITS ---
EXAM: XR CHEST, 2 VIEWS CLINICAL INDICATION: cough TECHNIQUE: Frontal and lateral views of the chest. COMPARISON: 02/06/2021 FINDINGS: LUNGS AND PLEURAL SPACES: Unremarkable. No consolidation or edema. No pneumothorax. No effusion. HEART: Unremarkable. Cardiac silhouette not enlarged. MEDIASTINUM: Central airways and mediastinal contour are unremarkable. BONES/JOINTS: Unremarkable. SOFT TISSUES: Unremarkable. RAD/Chest PA and Lateral IMPRESSION: No radiographic evidence of acute cardiopulmonary disease. Electronically Signed: Dayo Davison MD at 23:49 EST ,
== END | disposition home or self-care (01) ==
LOC: MTRAD 15:57
PROVIDERS: PCP Family Medicine; Referring Provider Family Medicine; Visit Provider Family Medicine
DX: R05.9 Cough, unspecified (principal)
CPT/HCPCS: 71046

== ENCOUNTER → 2023-04-19 | Outpatient (CLI) | payer OTHER, SELFPAY ==
[2023-04-19 16:20] LABS: AST(SGOT) 26 U/L (15-37); Alanine Aminotransfer ALT/SGPT 38 U/L (16-61); Alkaline Phosphatase 54 U/L (45-117); Anion Gap 7 (5-15); BUN 14 mg/dL (7-18); BUN/Creat Ratio 10.9 RATIO (10-20); Calcium,Total 8.9 mg/dL (8.5-10.1); Chloride 104 mmol/L (98-107); Creatinine, Serum 1.29 mg/dL (0.70-1.30); EST Glomerular Filtration Rate 65 mL/min (>60); Est Glom Filt Rate - Afr Amer 78 mL/min (>60); Globulin 3.9 g/dL (2.2-4.2); Glucose 108 mg/dL (74-106); Potassium 3.9 mmol/L (3.5-5.1); Protein, Total 7.9 g/dL (6.4-8.2); Sodium Level 139 mmol/L (136-145)
[2023-04-19 16:22] LABS: Hemoglobin A1c 5.7 % (3.8-5.6)
[2023-04-19 16:55] LABS: Vitamin D,25 Hydroxy 47.6 ng/mL
== END | disposition home or self-care (01) ==
PROVIDERS: PCP Family Medicine; Referring Provider Family Medicine; Visit Provider Family Medicine
DX: E55.9 Vitamin D deficiency, unspecified (principal); R73.02 Impaired glucose tolerance (oral)
CPT/HCPCS: 36415; 80053; 82306; 83036

== ENCOUNTER → 2023-11-22 | Outpatient (CLI) | payer OTHER, SELFPAY ==
[2023-11-22 18:16] LABS: Vitamin D,25 Hydroxy 31.9 ng/mL
[2023-11-22 19:18] LABS: Hemoglobin A1c 5.7 % (3.8-5.6)
[2023-11-22 22:08] LABS: AST(SGOT) 25 U/L (15-37); Alanine Aminotransfer ALT/SGPT 38 U/L (16-61); Albumin, Serum 3.8 g/dL (3.2-5.0); Alkaline Phosphatase 57 U/L (45-117); Anion Gap 11 (5-15); BUN 21 mg/dL (7-18); BUN/Creat Ratio 19.1 RATIO (10-20); Calcium,Total 8.7 mg/dL (8.5-10.1); Chloride 102 mmol/L (98-107); EST Glomerular Filtration Rate 77 mL/min (>60); Est Glom Filt Rate - Afr Amer 94 mL/min (>60); Globulin 3.9 g/dL (2.2-4.2); Glucose 113 mg/dL (74-106); Potassium 3.3 mmol/L (3.5-5.1); Protein, Total 7.7 g/dL (6.4-8.2); Sodium Level 136 mmol/L (136-145)
== END | disposition home or self-care (01) ==
LOC: MFPLAB 16:08
PROVIDERS: PCP Family Medicine; Visit Provider Family Medicine
DX: E55.9 Vitamin D deficiency, unspecified (principal); R73.02 Impaired glucose tolerance (oral)
CPT/HCPCS: 36415; 80053; 82306; 83036

== ENCOUNTER → 2024-03-30 | Outpatient (CLI) | payer OTHER, SELFPAY ==
--- NOTE | 2024-03-30 09:39 | RAD_ITS ---
STUDY: X-RAY CHEST REASON FOR EXAM: Male, 43 years old. Persistent cough TECHNIQUE: PA and lateral views of the chest. COMPARISON: Comparison is made with prior study dated March 16, 2023. FINDINGS: The lungs are clear and expanded. There is no demonstrated pleural abnormality. Normal size heart. Normal mediastinum and lukasz. Normal visualized pulmonary arteries. Normal visualized aortic arch and descending thoracic aorta. There are diffuse degenerative changes of the visualized thoracic spine. Normal visualized ribs, clavicles, and shoulders. There is no demonstrated abnormality of the visualized soft tissue structures of the upper abdomen. RAD/Chest PA and Lateral IMPRESSION: No acute abnormality is seen. Electronically Signed: Fito Price MD at 10:24 EST ,
== END | disposition home or self-care (01) ==
PROVIDERS: PCP Family Medicine; Referring Provider Physician Assistant Surgical; Visit Provider Physician Assistant Surgical
DX: J20.9 Acute bronchitis, unspecified (principal)
CPT/HCPCS: 71046

== ENCOUNTER → 2024-04-12 | Outpatient (CLI) | payer OTHER, SELFPAY ==
--- NOTE | 2024-04-12 11:27 | RAD_ITS ---
STUDY: X-RAY CHEST REASON FOR EXAM: Male, 43 years old. Bronchitis TECHNIQUE: PA and lateral views of the chest. COMPARISON: March 30, 2024 FINDINGS: The lungs are clear and expanded. There is no demonstrated pleural abnormality. Normal size heart. Normal mediastinum and lukasz. Normal visualized pulmonary arteries. Normal visualized aortic arch and descending thoracic aorta. Normal visualized thoracic spine. Normal visualized ribs, clavicles, and shoulders. There is no demonstrated abnormality of the visualized soft tissue structures of the upper abdomen. RAD/Chest PA and Lateral IMPRESSION: Normal x-ray examination of the chest. Electronically Signed: Chava Garcia MD at 8:35 EST ,
== END | disposition home or self-care (01) ==
LOC: MTRAD 11:27
PROVIDERS: PCP Family Medicine; Referring Provider Family Medicine; Visit Provider Family Medicine
DX: J20.9 Acute bronchitis, unspecified (principal)
CPT/HCPCS: 71046

== ENCOUNTER → 2024-05-19 | Outpatient (CLI) | payer OTHER, SELFPAY ==
[2024-05-19 11:59] LABS: Absolute Lymphocyte Count 3.25 X10^3/uL (0.83-4.51); Absolute Neutrophil Count 2.7 X10^3/uL (2.0-7.7); Basophil# 0.04 X10^3/uL; Basophil% 0.6 % (0-1); Eosinophil# 0.33 X10^3/uL; Eosinophils% 4.9 % (0-5); Hematocrit 43.1 % (40-54); Hemoglobin 13.8 g/dL (13.0-16.5); Lymphocyte # 3.25 X10^3/ul (0.83-4.51); Lymphocyte % 48.5 % (19-41); Mean Corpuscular Hgb 26.3 pg (27.0-32.0); Mean Corpuscular Volume 82.1 fL (80-94); Mean Platelet Vol. 11.3 fl (6.2-12.0); Monocyte# 0.35 X10^3/uL; Monocyte% 5.2 % (0-10); NRBC Flagged by Analyzer 0 % (0-5); Neutrophil # 2.69 X10^3/uL (2.7-7.7); Neutrophil % 40.2 % (47-70); Platelet Count 235 K/mm3 (150-450); RBC Distribution Width CV 12.9 % (11.6-14.6); RBC Distribution Width SD 38.5 fl (35.1-43.9); Red Blood Count 5.25 M/mm3 (4.6-6.2); White Blood Count 6.7 K/mm3 (4.4-11.0)
[2024-05-19 12:17] LABS: Vitamin D,25 Hydroxy 34.7 ng/mL
[2024-05-19 12:32] LABS: ALB/GLOB Ratio 1.1 RATIO (0.9-2.4); AST(SGOT) 19 U/L (15-37); Alanine Aminotransfer ALT/SGPT 48 U/L (16-61); Alkaline Phosphatase 56 U/L (45-117); Anion Gap 4 (5-15); BUN 15 mg/dL (7-18); BUN/Creat Ratio 16.4 RATIO (10-20); Calcium,Total 9.6 mg/dL (8.5-10.1); Chloride 103 mmol/L (98-107); Creatinine, Serum 0.91 mg/dL (0.70-1.30); EST Glomerular Filtration Rate 95 mL/min (>60); Est Glom Filt Rate - Afr Amer 116 mL/min (>60); Globulin 3.7 g/dL (2.2-4.2); Glucose 99 mg/dL (74-106); Potassium 3.8 mmol/L (3.5-5.1); Protein, Total 7.7 g/dL (6.4-8.2); Sodium Level 135 mmol/L (136-145)
[2024-05-19 14:29] LABS: Hemoglobin A1c 5.9 % (3.8-5.6)
== END | disposition home or self-care (01) ==
LOC: MFPLAB 10:28
PROVIDERS: PCP Family Medicine; Referring Provider Family Medicine; Visit Provider Family Medicine
DX: E55.9 Vitamin D deficiency, unspecified (principal); R73.02 Impaired glucose tolerance (oral)
CPT/HCPCS: 36415; 80053; 82306; 83036; 85025

== ENCOUNTER → 2024-06-09 | Outpatient (CLI) | payer OTHER, SELFPAY ==
[2024-06-09 16:58] LABS: Thyroid Stim Hormone (TSH) 0.594 uIU/mL (0.358-3.740)
[2024-06-10 09:34] LABS: Vitamin B12 635 pg/mL (211-911)
[2024-06-14 10:08] LABS: Testosterone, % Free 4.49 % (1.50-4.20); Testosterone, Free 5.79 ng/dL (5.00-21.00); Testosterone, Total 129 ng/dL (264-916)
== END | disposition home or self-care (01) ==
LOC: MFPLAB 11:21
PROVIDERS: PCP Family Medicine; Referring Provider Family Medicine; Visit Provider Family Medicine
DX: R53.83 Other fatigue (principal)
CPT/HCPCS: 36415; 82607; 84402; 84403; 84439; 84443

== ENCOUNTER → 2024-12-08 | Outpatient (CLI) | payer OTHER, SELFPAY ==
[2024-12-08 15:53] LABS: Hematocrit 43.4 % (40-54); Hemoglobin 14.3 g/dL (13.0-16.5); Immature Granulocytes Count 0.030 X10^3/uL (0.0-0.0); Mean Corp Hgb Conc 32.9 g/dL (32-36); Mean Corpuscular Volume 83.0 fL (80-94); Mean Platelet Vol. 11.8 fl (6.2-12.0); NRBC Flagged by Analyzer 0 % (0-5); Platelet Count 221 K/mm3 (150-450); RBC Distribution Width CV 13.0 % (11.6-14.6); RBC Distribution Width SD 39.6 fl (35.1-43.9); Red Blood Count 5.23 M/mm3 (4.6-6.2); White Blood Count 6.3 K/mm3 (4.4-11.0)
[2024-12-08 16:22] LABS: AST(SGOT) 27 U/L (<=37); Alanine Aminotransfer ALT/SGPT 34 U/L (<=46); Albumin, Serum 4.5 g/dL (3.5-5.0); Alkaline Phosphatase 49 U/L (40-129); Anion Gap 14 (5-15); BUN 19 mg/dL (4-19); BUN/Creat Ratio 17.9 RATIO (10-20); Calcium,Total 9.5 mg/dL (7.6-11.0); Carbon Dioxide 22.3 mmol/L (21.0-32.0); Chloride 101 mmol/L (98-108); Globulin 2.9 g/dL (2.2-4.2); Glucose 118 mg/dL (70-99); Potassium 3.9 mmol/L (3.3-5.1)
== END | disposition home or self-care (01) ==
LOC: MFPLAB 11:14
PROVIDERS: PCP Family Medicine; Referring Provider Family Medicine; Visit Provider Family Medicine
DX: R73.02 Impaired glucose tolerance (oral) (principal)
CPT/HCPCS: 36415; 80053; 83036; 85025

== ENCOUNTER → 2025-04-07 | Outpatient (CLI) | payer OTHER, SELFPAY ==
--- OUTSIDE RECORDS SUMMARY | 2025-04-07 07:25 | XMS RPT_ITS | CCD ---
Author Organization [facility] Care Team Providers Care Instructional Developer Name Role Phone ANTOINE WYATT, MELLISA MCCLOUD Primary Care Physicia n Antoine WYATT, Mellisa Lamb Primary Care Provider Antoine WYATT, Mellisa Lamb Primary Care Provider [phone] Antoine WYATT, Mellisa Lamb Primary Care Provider MELLISA SCHULTZ Primary Care Unavailable Kirill WYATT, Dr. Edu Jones Primary Care Provider Kirill WYATT, Dr. Edu Jones Attending Provider Kirill WYATT, Dr. Edu Jones Referring Provider [phone] Rafiq Landers Attending Unavailable Edu Roy Referring Unavailable Edu Roy Primary Care Unavailable Edu Roy Attending Unavailable Edu Roy Referring Unavailable Edu Roy Primary Care Unavailable Edu Roy Attending Unavailable Edu Roy Referring Unavailable Edu Roy Primary Care Unavailable Edu Roy Attending Unavailable Edu Roy Referring Unavailable Edu Roy Primary Care Unavailable Edu Roy Attending Unavailable Edu Roy Referring Unavailable Edu Roy Primary Care Unavailable Rafiq Landers Attending Unavailable Rafiq Landers Referring Unavailable Edu Roy Primary Care Unavailable Allergies Allergy Classification Reported Allergen(s) Allergy Type Date of Onset Reaction(s) Facility (4 sources) PARoxetine; Translations: [PAROXETINE HCL] Drug Allergy 09-22-2005 Intolerance [facility] Work Phone: Medications Current Medications Medication Drug Class(es) Dates Sig (Normalized) Sig (Original) azithromycin 250 mg oral tablet (1 source) Macrolide Antimicrobial Start: 03-30-2024 take 2-5 tablets by mouth once daily Azithromycin 250 mg tablet Active 0 PO .COMPLEX 6 0 March 30, 2024 1:00am take 500 mg today (day 1), then 250 mg for 4 days (days 2-5) PO cephalexin 500 mg oral capsule (2 sources) Cephalosporin Antibacterial Start: 01-11-2024 End: 01-18-2024 take 1 capsule by mouth four times daily cephALEXin (KEFLEX) 500 mg capsule Take 1 capsule by mouth four times daily for 7 days. 28 capsule 01/11/2024 01/18/2024 Active Start: 08-06-2023 End: 08-16-2023 take 1 capsule by mouth every twelve hours Cephalexin 500 mg capsule Discontinued 500 mg PO Q12H 20 10 August 06, 2023 12:00am August 15, 2023 12:00am August 16, 2023 12:05am dextromethorphan hydrobromide 15 mg / guaiFENesin 400 mg / pseudoephedrine hydrochloride 60 mg oral tablet (1 source) alpha-Adrenergic Agonist, Uncompetitive X-ggzauf-J-aspartate Receptor Antagonist, Sigma-1 Agonist Start: 03-30-2024 take 4 tablets by mouth every twenty-four hours as needed Wupnxeahcdlgoci-Rg-Pggitwqluer (Capmist Dm) 60-15-400 mg tablet Active 1 {tbl} PO EVERY 4-6 HOURS as needed for cold symptoms March 30, 2024 1:00am do not exceed 4 doses per 24 hrs FLUoxetine 20 mg oral capsule (6 sources) Serotonin Reuptake Inhibitor Start: 08-06-2023 take 1 capsule by mouth once daily Fluoxetine 20 mg capsule Active 20 mg PO DAILY August 06, 2023 12:00am Start: 05-23-2021 End: 01-29-2022 take 1 capsule by mouth once daily FLUoxetine (PROZAC) 20 mg capsule Indications: GARFIELD (generalized anxiety disorder) take 1 capsule by mouth once daily 30 capsule 01/29/2022 Active Comment on above: Take 1 capsule by mo uth once daily. take 1 capsule by mo uth once daily MULTIVITAMIN ORAL (3 sources) MULTIVITAMIN ORA L Take by mouth. Active MULTIVITAMIN ORA L Take by mouth. 0 Active Comment on above: Take by mouth. perflutren lipid microspheres 1.3 mL in NaCl (PF) 0.9% 10 mL injection (DEFINITY) (2 sources) Start: 02-27-2021 End: 05-29-2022 perflutren lipid microspheres 1.3 mL in NaCl (PF) 0.9% 10 mL injection (DEFINITY) 125 ml sodium chloride 9 mg/ml prefilled syringe (2 sources) Start: 02-27-2021 End: 05-29-2022 sodium chloride 0.9 % (flush) 10 mL (BD POSIFLUSH) Completed/Discontinued Medications Medication Drug Class(es) Dates Sig (Normalized) Sig (Original) dexamethasone 6 mg oral tablet (6 sources) Corticosteroid Start: 02-03-2021 End: 02-16-2021 take 1 tablet by mouth once daily Dexamethasone 6 mg tablet Discontinued 6 mg PO DAILY February 03, 2021 12:00am February 16, 2021 11:17am ondansetron 4 mg disintegrating oral tablet (6 sources) Serotonin-3 Receptor Antagonist Start: 02-03-2021 End: 08-06-2023 take 1 tablet by mouth every eight hours as needed for nausea Ondansetron 4 mg tablet,disintegrat ing Discontinued 4 mg PO EVERY 8 HOURS NEEDED as needed for Nausea February 03, 2021 12:00am August 06, 2023 2:48pm Problems Active Problems Problem Classification Problem Date Documented Da te Episodic/Chronic Anxiety disorders (2 sources) Generalized anxiety disorder; Translations: [Generalized anxiety disorder] Chronic Diabetes mellitus without complication (1 source) Impaired glucose tolerance (oral); Translations: [Impaired glucose tolerance (oral)] Onset: 12-15-2024 Episodic Disorders of lipid metabolism (3 sources) Mixed hyperlipidemia; Translations: [Mixed hyperlipidemia] Onset: 10-04-2012 01-18-2018 Chronic Nutritional deficiencies (1 source) Vitamin D deficiency, unspecified; Translations: [Vitamin D deficiency, unspecified] Onset: 06-09-2024 Chronic Other gastrointestinal disorders (3 sources) Irritable bowel syndrome; Translations: [Irritable bowel syndrome without diarrhea] Onset: 05-18-2006 04-28-2011 Chronic Other skin disorders (6 sources) Skin lesion; Translations: [Disorder of the skin and subcutaneous tissue, unspecified] 09-22-2018 Episodic Other upper respiratory infections (1 source) Acute sinusitis; Translations: [Acute sinusitis, unspecified] 08-06-2023 Episodic Skin and subcutaneous tissue infections (1 source) Impetigo; Translations: [Impetigo, unspecified] 01-11-2024 Episodic Past or Other Problems Problem Classification Problem Date Documented Da te Episodic/Chronic Acute bronchitis (2 sources) Acute bronchitis; Translations: [Acute bronchitis, unspecified] Onset: 05-15-2024 03-30-2024 Episodic Malaise and fatigue (1 source) Other fatigue; Translations: [Other fatigue] Onset: 06-28-2024 Episodic Results Test Name Value Interpretation Reference Range Facility Absolute lymphocyte countOrd ered By: Edu Roy on 12-08-2024 Lymphocytes Auto (Unsp spec) [#/Vol] 2.17 10*3/uL 0.83-4.51 [facility] Absolute neutrophil countOrd ered By: Edu Roy on 12-08-2024 Neutrophils (Bld) [#/Vol] 3.6 10*3/uL 2.0-7.7 [facility] Anion gap in Serum or Plasma Ordered By: Edu Roy on 12-08-2024 Anion gap [Moles/Vol] 14 mmol/L 5-15 [facility] Automated lymphocyte count a s percentage of total leukocytesOrdered By: Edu Roy on 12-08-2024 Lymphocytes/100 WBC Auto (Unsp spec) 34.4 % - [facility] BUN/creatinine ratioOrdered By: Edu Roy on 12-08-2024 Urea nitrogen/Creatinine [Mass ratio] 17.9 mg/mg 10- [facility] Basophil percentageOrdered B y: Edu Roy on 12-08-2024 Basophils/100 WBC (Bld) 0.8 % 0-1 [facility] Bilirubin, totalOrdered By: Edu Roy on 12-08-2024 Bilirubin [Mass/Vol] 0.42 mg/dL 0.00-1.30 [facility] CBC W/Diff, Automatedon Absolute Lymph 2.17 X10 3/uL Normal 0.83-4.51 [facility] Comment on above: Order Comment: Order Date: 12/08/24 Order Info: 0184-1 - CBCD Performed By: #### L 100.0100, [id number], [id number] #### [facility] [address] [place], [address] Absolute Neut 3.6 X10 3/uL Normal 2.0-7.7 [facility] Comment on above: Order Comment: Order Date: 12/08/24 Order Info: 0184-1 - CBCD Performed By: #### L 100.0100, [id number], [id number] #### [facility] [address] [place], [address] Basophils/100 WBC (Bld) 0.8 % Normal 0-1 [facility] Comment on above: Order Comment: Order Date: 12/08/24 Order Info: 0184-1 - CBCD Performed By: #### L 100.0100, [id number], [id number] #### [facility] [address] [place], [address] Eosinophils/100 WBC (Bld) 2.9 % Normal 0-5 [facility] Comment on above: Order Comment: Order Date: 12/08/24 Order Info: 0184-1 - CBCD Performed By: #### L 100.0100, [id number], [id number] #### [facility] [address] [place], [address] Erythrocyte distribution width (RBC) [Ratio] 13.0 % Normal 11.6-14.6 [facility] Comment on above: Order Comment: Order Date: 12/08/24 Order Info: 0184-1 - CBCD Performed By: #### L 100.0100, [id number], [id number] #### [facility] [address] [place], [address] Hematocrit (Bld) [Volume fraction] 43.4 % Normal 40-54 [facility] Comment on above: Order Comment: Order Date: 12/08/24 Order Info: 0184-1 - CBCD Performed By: #### L 100.0100, [id number], [id number] #### [facility] [address] [place], [address] Hemoglobin (Bld) [Mass/Vol] 14.3 g/dL Normal 13.0-16.5 [facility] Comment on above: Order Comment: Order Date: 12/08/24 Order Info: [id number]- - CBCD Performed By: #### L 100.0100, [id number], [id number] #### [facility] [address] [place], [address] IG% 0.500 Normal 0.0-0.9 [facility] Comment on above: Order Comment: Order Date: 12/08/24 Order Info: [id number] - CBCD Result Comment: IG% - Immature Granulocytes (promyelocytes, myelocytes and metamyelocytes) > 1% indicates that a LEFT SHIFT is Present. Performed By: #### L 100.0100, [id number], [id number] #### [facility] [address] [place], [address] Lymphocytes/100 WBC (Bld) 34.4 % Normal 19-41 [facility] Comment on above: Order Comment: Order Date: 12/08/24 Order Info: [id number]- - CBCD Performed By: #### L 100.0100, [id number], [id number] #### [facility] [address] [place], [address] MCH (RBC) [Entitic mass] 27.3 pg Normal 27.0-32.0 [facility] Comment on above: Order Comment: Order Date: 12/08/24 Order Info: [id number]- - CBCD Performed By: #### L 100.0100, [id number], [id number] #### [facility] [address] [place], [address] MCHC (RBC) [Mass/Vol] 32.9 g/dL Normal 32-36 [facility] Comment on above: Order Comment: Order Date: 12/08/24 Order Info: 0184-1 - CBCD Performed By: #### L 100.0100, [id number], [id number] #### [facility] [address] [place], [address] MCV (RBC) [Entitic vol] 83.0 fL Normal 80-94 [facility] Comment on above: Order Comment: Order Date: 12/08/24 Order Info: 0184-1 - CBCD Performed By: #### L 100.0100, [id number], [id number] #### [facility] [address] [place], [address] Monocytes/100 WBC (Bld) 5.2 % Normal 0-10 [facility] Comment on above: Order Comment: Order Date: 12/08/24 Order Info: 0184-1 - CBCD Performed By: #### L 100.0100, [id number], [id number] #### [facility] [address] [place], [address] Neutrophils/100 WBC (Bld) 56.2 % Normal 47-70 [facility] Comment on above: Order Comment: Order Date: 12/08/24 Order Info: 0184-1 - CBCD Performed By: #### L 100.0100, [id number], [id number] #### [facility] [address] [place], [address] Nucleated RBC (Bld) [#/Vol] 0 10*3/uL Normal 0-5 [facility] Comment on above: Order Comment: Order Date: 12/08/24 Order Info: 0184-1 - CBCD Performed By: #### L 100.0100, [id number], [id number] #### [facility] [address] [place], [address] Platelet mean volume (Bld) [Entitic vol] 11.8 fL Normal 6.2-12.0 [facility] Comment on above: Order Comment: Order Date: 12/08/24 Order Info: 0184-1 - CBCD Performed By: #### L 100.0100, [id number], [id number] #### [facility] [address] [place], [address] Platelets (Bld) [#/Vol] 221 10*3/uL Normal 150-450 [facility] Comment on above: Order Comment: Order Date: 12/08/24 Order Info: 0184-1 - CBCD Performed By: #### L 100.0100, [id number], [id number] #### [facility] [address] [place], [address] RBC (Bld) [#/Vol] 5.23 10*6/uL Normal 4.6-6.2 [facility] Comment on above: Order Comment: Order Date: 12/08/24 Order Info: 0184-1 - CBCD Performed By: #### L 100.0100, [id number], [id number] #### [facility] [address] [place], [address] RDW SD 39.6 fl Normal 35.1-43.9 [facility] Comment on above: Order Comment: Order Date: 12/08/24 Order Info: 0184-1 - CBCD Performed By: #### L 100.0100, [id number], [id number] #### [facility] [address] [place], [address] WBC (Bld) [#/Vol] 6.3 10*3/uL Normal 4.4-11.0 [facility] Comment on above: Order Comment: Order Date: 12/08/24 Order Info: 0184-1 - CBCD Performed By: #### L 100.0100, [id number], [id number] #### [facility] [address] [place], [address] Carbon dioxide, total [Moles /volume] in Central venous bloodOrdered By: Edu Roy on 12-08-2024 CO2 [Moles/Vol] 22.3 mmol/L 21.0-32.0 [facility] Chloride assayOrdered By: Valencia Roy on 12-08-2024 Chloride [Moles/Vol] 101 mmol/L 98-108 [facility] Comprehensive Metabolic Prof ilon 12-08-2024 Albumin [Mass/Vol] 4.5 g/dL Normal 3.5-5.0 [facility] Comment on above: Order Comment: Order Date: 12/08/24 Order Info: 0786-1 - CMP Performed By: #### L 100.0100, [id number], [id number] #### [facility] [address] [place], [address] Albumin/Globulin [Mass ratio] 1.5 {ratio} Normal 0.9-2.4 [facility] Comment on above: Order Comment: Order Date: 12/08/24 Order Info: 0786-1 - CMP Performed By: #### L 100.0100, [id number], [id number] #### [facility] [address] [place], [address] ALK PHOS 49 U/L Normal 40-129 [facility] Comment on above: Order Comment: Order Date: 12/08/24 Order Info: 0786-1 - CMP Performed By: #### L 100.0100, [id number], [id number] #### [facility] [address] [place], [address] ALT [Catalytic activity/Vol] 34 U/L Normal <=46 [facility] Comment on above: Order Comment: Order Date: 12/08/24 Order Info: 0786-1 - CMP Performed By: #### L 100.0100, [id number], [id number] #### [facility] [address] [place], [address] AST [Catalytic activity/Vol] 27 U/L Normal <=37 [facility] Comment on above: Order Comment: Order Date: 12/08/24 Order Info: 0786-1 - CMP Performed By: #### L 100.0100, [id number], [id number] #### [facility] [address] [place], [address] Bilirubin [Mass/Vol] 0.42 mg/dL Normal 0.00-1.30 [facility] Comment on above: Order Comment: Order Date: 12/08/24 Order Info: 0786-1 - CMP Performed By: #### L 100.0100, [id number], [id number] #### [facility] [address] [place], [address] BUN/CRE 17.9 RATIO Normal 10-20 [facility] Comment on above: Order Comment: Order Date: 12/08/24 Order Info: 0786-1 - CMP Performed By: #### L 100.0100, [id number], [id number] #### [facility] [address] [place], [address] Calcium [Mass/Vol] 9.5 mg/dL Normal 7.6-11.0 [facility] Comment on above: Order Comment: Order Date: 12/08/24 Order Info: 0786-1 - CMP Performed By: #### L 100.0100, [id number], [id number] #### [facility] [address] [place], [address] Chloride [Moles/Vol] 101 mmol/L Normal 98-108 [facility] Comment on above: Order Comment: Order Date: 12/08/24 Order Info: 0786-1 - CMP Performed By: #### L 100.0100, [id number], [id number] #### [facility] [address] [place], [address] CO2 [Moles/Vol] 22.3 mmol/L Normal 21.0-32.0 [facility] Comment on above: Order Comment: Order Date: 12/08/24 Order Info: 0786-1 - CMP Performed By: #### L 100.0100, [id number], [id number] #### [facility] [address] [place], [address] Creatinine [Mass/Vol] 1.06 mg/dL Normal 0.70-1.20 [facility] Comment on above: Order Comment: Order Date: 12/08/24 Order Info: 0786-1 - CMP Performed By: #### L 100.0100, [id number], [id number] #### [facility] [address] [place], [address] GAP 14 Normal 5-15 [facility] Comment on above: Order Comment: Order Date: 12/08/24 Order Info: 0786-1 - CMP Performed By: #### L 100.0100, [id number], [id number] #### [facility] [address] [place], [address] GFR/1.73 sq M.predicted among non-blacks MDRD (S/P/Bld) [Vol rate/Area] 88 mL/min/{1.73_m2} Normal >60 [facility] Comment on above: Order Comment: Order Date: 12/08/24 Order Info: 0786-1 - CMP Result Comment: mL/m in/1.73m2 CKD-EPI Creatinine Equation (2020) Performed By: #### L 100.0100, [id number], [id number] #### [facility] [address] [place], [address] Globulin (S) [Mass/Vol] 2.9 g/dL Normal 2.2-4.2 [facility] Comment on above: Order Comment: Order Date: 12/08/24 Order Info: 0786-1 - CMP Performed By: #### L 100.0100, [id number], [id number] #### [facility] [address] [place], [address] Glucose [Mass/Vol] 118 mg/dL High 70-99 [facility] Comment on above: Order Comment: Order Date: 12/08/24 Order Info: 0786-1 - CMP Performed By: #### L 100.0100, [id number], [id number] #### [facility] [address] [place], [address] Potassium [Moles/Vol] 3.9 mmol/L Normal 3.3-5.1 [facility] Comment on above: Order Comment: Order Date: 12/08/24 Order Info: 0786-1 - CMP Performed By: #### L 100.0100, [id number], [id number] #### [facility] [address] [place], [address] Sodium [Moles/Vol] 137 mmol/L Normal 133-145 [facility] Comment on above: Order Comment: Order Date: 12/08/24 Order Info: 0786-1 - CMP Performed By: #### L 100.0100, [id number], [id number] #### [facility] [address] [place], [address] T PROT 7.3 g/dL Normal 5.9-8.4 [facility] Comment on above: Order Comment: Order Date: 12/08/24 Order Info: 0786-1 - CMP Performed By: #### L 100.0100, [id number], [id number] #### [facility] [address] [place], [address] Urea nitrogen [Mass/Vol] 19 mg/dL Normal 4-19 [facility] Comment on above: Order Comment: Order Date: 12/08/24 Order Info: 0786-1 - CMP Performed By: #### L 100.0100, [id number], [id number] #### [facility] [address] [place], [place], [address] Eosinophil percentageOrdered By: Edu Roy on 12-08-2024 Eosinophils/100 WBC (Bld) 2.9 % 0-5 [facility] Erythrocyte distribution wid th ratioOrdered By: Edu Roy on 12-08-2024 Erythrocyte distribution width (RBC) [Ratio] 13.0 % 11.6-14.6 [facility] Erythrocyte distribution wid th standard deviationOrdered By: Edu Roy on 12-08-2024 Erythrocyte distribution width (RBC) [Ratio] 39.6 fl 35.1-43.9 [facility] Glomerular filtration rate ( GFR) estimation/1.73 sq m using serum, plasma, or whole bOrdered By: Edu Roy on 12-08-2024 GFR/1.73 sq M.predicted among non-blacks MDRD (S/P/Bld) [Vol rate/Area] 88 mL/min/{1.73_m2} >60 [facility] Comment on above: mL/min/1.73m2 CKD-EP I Creatinine Equation (2020) Hematocrit Auto (Bld) [Volum e fraction]Ordered By: Edu Roy on 12-08-2024 Hematocrit (Bld) [Volume fraction] 43.4 % 40-54 [facility] Hemoglobin A1con 12-08-2024 HbA1c (Bld) [Mass fraction] 6.1 % High <=5.6 [facility] Comment on above: Order Comment: Order Date: 12/08/24 Order Info: [id number] - A1C Result Comment: Norm al < 5.7 % Prediabetic 5.7 - 6.4 % Diabetic >or= 6.5 % Please note range changes. Performed By: #### L 100.0100, [id number], [id number] #### [facility] [address] [place], [address] Hemoglobin A1c percentageOrd ered By: Edu Roy on 12-08-2024 HbA1c (Bld) [Mass fraction] 6.1 % High <5.7 [facility] Comment on above: Normal < 5.7 % Predi abetic 5.7 - 6.4 % Diabetic >or= 6.5 % Please note range changes. Hemoglobin measurementOrdere d By: Edu Roy on 12-08-2024 Hemoglobin (Bld) [Mass/Vol] 14.3 g/dL 13.0-16.5 [facility] Immature granulocytes/100 WB C Auto (Bld)Ordered By: Edu Roy on 12-08-2024 Immature granulocytes/100 WBC (Bld) 0.500 % 0.0-0.9 [facility] Comment on above: IG% - Immature Granu locytes (promyelocytes, myelocytes and metamyelocytes) > 1% indicates that a LEFT SHIFT is Present. Laboratory - Chemistry and C hemistry - challengeOrdered By: Edu Roy on 12-08-2024 AST [Catalytic activity/Vol] 27 U/L <38 [facility] MCV (mean corpuscular volume ) determinationOrdered By: Edu Roy on 12-08-2024 MCV (RBC) [Entitic vol] 83.0 fL 80-94 [facility] Mean corpuscular hemoglobin (MCH) determinationOrdered By: Edu Roy on 12-08-2024 MCH (RBC) [Entitic mass] 27.3 pg 27.0-32.0 [facility] Mean corpuscular hemoglobin concentration (MCHC) determinationOrdered By: Edu Roy on 12-08-2024 MCHC (RBC) [Mass/Vol] 32.9 g/dL 32-36 [facility] Mean platelet volume determi nationOrdered By: Edu Roy on 12-08-2024 Platelet mean volume (Bld) [Entitic vol] 11.8 fL 6.2-12.0 [facility] Monocyte percentageOrdered B y: Edu Roy on 12-08-2024 Monocytes/100 WBC (Bld) 5.2 % 0-10 [facility] Neutrophil percentageOrdered By: Edu Roy on 12-08-2024 Neutrophils/100 WBC (Bld) 56.2 % 47-70 [facility] Nucleated red blood cell per centageOrdered By: Edu Roy on 12-08-2024 Nucleated RBC/100 WBC (Bld) [Ratio] 0 % 0-5 [facility] Platelet countOrdered By: Valencia Roy on 12-08-2024 Platelets (Bld) [#/Vol] 221 10*3/uL 150-450 [facility] Potassium measurement (mass/ volume)Ordered By: Edu Roy on 12-08-2024 Potassium (Unsp spec) [Mass/Vol] 3.9 mmol/L 3.3-5.1 [facility] RBC Auto (Bld) [#/Vol]Ordere d By: Edu Roy on 12-08-2024 RBC (Bld) [#/Vol] 5.23 10*6/uL 4.6-6.2 [facility] Serum creatinine measurement (mass/volume)Ordered By: Edu Roy on 12-08-2024 Creatinine [Mass/Vol] 1.06 mg/dL 0.70-1.20 [facility] Serum globulin measurementOr dered By: Edu Roy on 12-08-2024 Globulin (S) [Mass/Vol] 2.9 g/dL 2.2-4.2 [facility] Serum glucose measurement (m ass/volume)Ordered By: Edu Roy on 12-08-2024 Glucose [Mass/Vol] 118 mg/dL High 70-99 [facility] Serum or plasma alanine velazquez otransferase (ALT) measurementOrdered By: Edu Roy on 12-08-2024 ALT [Catalytic activity/Vol] 34 U/L <47 [facility] Serum or plasma albumin wilfrid urement (mass/volume)Ordered By: Edu Roy on 12-08-2024 Albumin [Mass/Vol] 4.5 g/dL 3.5-5.0 [facility] Serum or plasma albumin/glob ulin mass ratioOrdered By: Edu Roy on 12-08-2024 Albumin/Globulin [Mass ratio] 1.5 {ratio} 0.9-2.4 [facility] Serum or plasma alkaline kathryn sphatase measurementOrdered By: Edu Roy on 12-08-2024 ALP [Catalytic activity/Vol] 49 U/L 40-129 [facility] Serum or plasma calcium wilfrid urement (mass/volume)Ordered By: Edu Roy on 12-08-2024 Calcium [Mass/Vol] 9.5 mg/dL 7.6-11.0 [facility] Serum or plasma urea nitroge n measurement (mass/volume)Ordered By: Edu Roy on 12-08-2024 Urea nitrogen [Mass/Vol] 19 mg/dL 4-19 [facility] Sodium levelOrdered By: Edu Roy on 12-08-2024 Sodium [Moles/Vol] 137 mmol/L 133-145 [facility] Total proteinOrdered By: Song Roy on 12-08-2024 Protein [Mass/Vol] 7.3 g/dL 5.9-8.4 [facility] White blood cell (WBC) count Ordered By: Edu Roy on 12-08-2024 WBC (Bld) [#/Vol] 6.3 10*3/uL 4.4-11.0 [facility] Testosterone, Total / Freeon 06-14-2024 TESTOSTER,FREE 5.79 ng/dL Normal 5.00-21.00 [facility] Comment on above: Order Comment: Order Date: 06/09/24 Order Info: 0024-1 - TESTF N Performed By: #### L 3100.5310, L501.9520, L506.0400, L503.0105 #### [facility] [address] [place], [address] TESTOSTER,TOTAL 129 ng/dL Low 264-916 [facility] Comment on above: Order Comment: Order Date: 06/09/24 Order Info: 0024-1 - TESTF N Result Comment: Adul t male reference interval is based on a population of healthy nonobese males (BMI <30) between 19 and 39 years old. micheal Harper.al. JCEM 2017,102;5438-8276. PMID: [id number]. Performed By: #### L 3100.5310, L501.9520, L506.0400, L503.0105 #### [facility] [address] [place], [place], [address] TESTOSTERONE,%F 4.49 High 1.50-4.20 [facility] Comment on above: Order Comment: Order Date: 06/09/24 Order Info: 0024-1 - TESTF N Result Comment: Perf ormed at: - [facility] [id number] [employer] Vehicle Operator: Nikita Gutierrez PhD, Phone: [phone] Performed at: - [facility] [id number] [employer] Operator: Ozzy Nino MD, Phone: [phone] Performed By: #### L 3100.5310, L501.9520, L506.0400, L503.0105 #### [facility] [address] [place], [place], [address] Vitamin B12on 06-10-2024 Cobalamin (Vitamin B12) [Mass/Vol] 635 pg/mL Normal 211-911 [facility] Comment on above: Order Comment: Order Date: 06/09/24 Order Info: 2132-9 - B12 Performed By: #### L 3100.5310, L501.9520, L506.0400, L503.0105 #### [facility] [address] [place], [place], [address] T4 Free Directon 06-09-2024 T4 FREE DIRECT 0.80 ng/dL Normal 0.76-1.46 [facility] Comment on above: Order Comment: Order Date: 06/09/24 Order Info: 3016-3 - TSH Order Info: 3024-7 - T4F N Performed By: #### L 3100.5310, L501.9520, L506.0400, L503.0105 #### [facility] [address] [place], [place], [address] Thyroid Stim Hormone (TSH)on 06-09-2024 TSH 0.594 uIU/mL Normal 0.358-3.740 [facility] Comment on above: Order Comment: Order Date: 06/09/24 Order Info: 3016-3 - TSH Order Info: 3024-7 - T4F Performed By: #### L 3100.5310, L501.9520, L506.0400, L503.0105 #### [facility] [address] [place], [address] CBC W/Diff, Automatedon - 0-202 Absolute Lymph 3.25 X10 3/uL Normal 0.83-4.51 [facility] Comment on above: Order Comment: Order Date: 12/08/24 Order Info: 0786-1 - CMP Performed By: #### L 100.0100, L500.4050, L501.9985 #### [facility] [address] [place], [address] Absolute Neut 2.7 X10 3/uL Normal 2.0-7.7 [facility] Comment on above: Order Comment: Order Date: 12/08/24 Order Info: 0786-1 - CMP Performed By: #### L 100.0100, L500.4050, L501.9985 #### [facility] [address] [place], [address] Basophils/100 WBC (Bld) 0.6 % Normal 0-1 [facility] Comment on above: Order Comment: Order Date: 12/08/24 Order Info: 0786-1 - CMP Performed By: #### L 100.0100, L500.4050, L501.9985 #### [facility] [address] [place], [address] Eosinophils/100 WBC (Bld) 4.9 % Normal 0-5 [facility] Comment on above: Order Comment: Order Date: 12/08/24 Order Info: 0786-1 - CMP Performed By: #### L 100.0100, L500.4050, L501.9985 #### [facility] [address] [place], [address] Erythrocyte distribution width (RBC) [Ratio] 12.9 % Normal 11.6-14.6 [facility] Comment on above: Order Comment: Order Date: 12/08/24 Order Info: 0786-1 - CMP Performed By: #### L 100.0100, L500.4050, L501.9985 #### [facility] [address] [place], [address] Hematocrit (Bld) [Volume fraction] 43.1 % Normal 40-54 [facility] Comment on above: Order Comment: Order Date: 12/08/24 Order Info: 0786-1 - CMP Performed By: #### L 100.0100, L500.4050, L501.9985 #### [facility] [address] [place], [address] Hemoglobin (Bld) [Mass/Vol] 13.8 g/dL Normal 13.0-16.5 [facility] Comment on above: Order Comment: Order Date: 12/08/24 Order Info: 0786-1 - CMP Performed By: #### L 100.0100, L500.4050, L501.9985 #### [facility] [address] [place], [address] IG% 0.600 Normal 0.0-0.9 [facility] Comment on above: Order Comment: Order Date: 12/08/24 Order Info: 0786-1 - CMP Result Comment: IG% - Immature Granulocytes (promyelocytes, myelocytes and metamyelocytes) > 1% indicates that a LEFT SHIFT is Present. Performed By: #### L 100.0100, L500.4050, L501.9985 #### [facility] [address] [place], [address] Lymphocytes/100 WBC (Bld) 48.5 % High 19-41 [facility] Comment on above: Order Comment: Order Date: 12/08/24 Order Info: 0786-1 - CMP Performed By: #### L 100.0100, L500.4050, L501.9985 #### [facility] [address] [place], [address] MCH (RBC) [Entitic mass] 26.3 pg Low 27.0-32.0 [facility] Comment on above: Order Comment: Order Date: 12/08/24 Order Info: 0786-1 - CMP Performed By: #### L 100.0100, L500.4050, L501.9985 #### [facility] [address] [place], [address] MCHC (RBC) [Mass/Vol] 32.0 g/dL Normal 32-36 [facility] Comment on above: Order Comment: Order Date: 12/08/24 Order Info: 0786-1 - CMP Performed By: #### L 100.0100, L500.4050, L501.9985 #### [facility] [address] [place], [address] MCV (RBC) [Entitic vol] 82.1 fL Normal 80-94 [facility] Comment on above: Order Comment: Order Date: 12/08/24 Order Info: 0786-1 - CMP Performed By: #### L 100.0100, L500.4050, L501.9985 #### [facility] [address] [place], [address] Monocytes/100 WBC (Bld) 5.2 % Normal 0-10 [facility] Comment on above: Order Comment: Order Date: 12/08/24 Order Info: 0786-1 - CMP Performed By: #### L 100.0100, L500.4050, L501.9985 #### [facility] [address] [place], [address] Neutrophils/100 WBC (Bld) 40.2 % Low 47-70 [facility] Comment on above: Order Comment: Order Date: 12/08/24 Order Info: 0786-1 - CMP Performed By: #### L 100.0100, L500.4050, L501.9985 #### [facility] [address] [place], [address] Nucleated RBC (Bld) [#/Vol] 0 10*3/uL Normal 0-5 [facility] Comment on above: Order Comment: Order Date: 12/08/24 Order Info: 0786-1 - CMP Performed By: #### L 100.0100, L500.4050, L501.9985 #### [facility] [address] [place], [address] Platelet mean volume (Bld) [Entitic vol] 11.3 fL Normal 6.2-12.0 [facility] Comment on above: Order Comment: Order Date: 12/08/24 Order Info: 0786-1 - CMP Performed By: #### L 100.0100, L500.4050, L501.9985 #### [facility] [address] [place], [address] Platelets (Bld) [#/Vol] 235 10*3/uL Normal 150-450 [facility] Comment on above: Order Comment: Order Date: 12/08/24 Order Info: 0786-1 - CMP Performed By: #### L 100.0100, L500.4050, L501.9985 #### [facility] [address] [place], [address] RBC (Bld) [#/Vol] 5.25 10*6/uL Normal 4.6-6.2 [facility] Comment on above: Order Comment: Order Date: 12/08/24 Order Info: 0786-1 - CMP Performed By: #### L 100.0100, L500.4050, L501.9985 #### [facility] [address] [place], [address] RDW SD 38.5 fl Normal 35.1-43.9 [facility] Comment on above: Order Comment: Order Date: 12/08/24 Order Info: 0786-1 - CMP Performed By: #### L 100.0100, L500.4050, L501.9985 #### [facility] [address] [place], [address] WBC (Bld) [#/Vol] 6.7 10*3/uL Normal 4.4-11.0 [facility] Comment on above: Order Comment: Order Date: 12/08/24 Order Info: 0786-1 - CMP Performed By: #### L 100.0100, L500.4050, L501.9985 #### [facility] [address] [place], [address] Comprehensive Metabolic Prof ilon 05-19-2024 Albumin [Mass/Vol] 4.0 g/dL Normal 3.2-5.0 [facility] Comment on above: Order Comment: Order Date: 12/08/24 Order Info: 0786-1 - CMP Performed By: #### L 100.0100, L500.4050, L501.9985 #### [facility] [address] [place], [address] Albumin/Globulin [Mass ratio] 1.1 {ratio} Normal 0.9-2.4 [facility] Comment on above: Order Comment: Order Date: 12/08/24 Order Info: 0786-1 - CMP Performed By: #### L 100.0100, L500.4050, L501.9985 #### [facility] [address] [place], [address] ALK P 56 U/L Normal 45-117 [facility] Comment on above: Order Comment: Order Date: 12/08/24 Order Info: 0786-1 - CMP Performed By: #### L 100.0100, L500.4050, L501.9985 #### [facility] [address] [place], [address] ALT [Catalytic activity/Vol] 48 U/L Normal 16-61 [facility] Comment on above: Order Comment: Order Date: 12/08/24 Order Info: 0786-1 - CMP Performed By: #### L 100.0100, L500.4050, L501.9985 #### [facility] [address] [place], [address] AST [Catalytic activity/Vol] 19 U/L Normal 15-37 [facility] Comment on above: Order Comment: Order Date: 12/08/24 Order Info: 0786-1 - CMP Performed By: #### L 100.0100, L500.4050, L501.9985 #### [facility] [address] [place], [address] Bilirubin [Mass/Vol] 0.40 mg/dL Normal 0.20-1.00 [facility] Comment on above: Order Comment: Order Date: 12/08/24 Order Info: 0786-1 - CMP Result Comment: For patients on eltrombopag therapy, use of Dimension [place] TBIL is not recommended. Performed By: #### L 100.0100, L500.4050, L501.9985 #### [facility] [address] [place], [address] BUN/CRE 16.4 RATIO Normal 10-20 [facility] Comment on above: Order Comment: Order Date: 12/08/24 Order Info: 0786-1 - CMP Performed By: #### L 100.0100, L500.4050, L501.9985 #### [facility] [address] [place], [address] CA,Total 9.6 mg/dL Normal 8.5-10.1 [facility] Comment on above: Order Comment: Order Date: 12/08/24 Order Info: 0786-1 - CMP Performed By: #### L 100.0100, L500.4050, L501.9985 #### [facility] [address] [place], [address] Chloride [Moles/Vol] 103 mmol/L Normal 98-107 [facility] Comment on above: Order Comment: Order Date: 12/08/24 Order Info: 0786-1 - CMP Performed By: #### L 100.0100, L500.4050, L501.9985 #### [facility] [address] [place], [address] CO2 [Moles/Vol] 28.0 mmol/L Normal 21.0-32.0 [facility] Comment on above: Order Comment: Order Date: 12/08/24 Order Info: 0786- - CMP Performed By: #### L 100.0100, L500.4050, L501.9985 #### [facility] [address] [place], [address] Creatinine [Mass/Vol] 0.91 mg/dL Normal 0.70-1.30 [facility] Comment on above: Order Comment: Order Date: 12/08/24 Order Info: 0786- - CMP Result Comment: The validity of the calculated GFR GFRAA in patients over 70 years has not been determined. Clinical correlation is essential. Performed By: #### L 100.0100, L500.4050, L501.9985 #### [facility] [address] [place], [address] EST GFR - AA 116 mL/min Normal >60 [facility] Comment on above: Order Comment: Order Date: 12/08/24 Order Info: 0786-1 - CMP Result Comment: Afri can [place] GFR Calc Performed By: #### L 100.0100, L500.4050, L501.9985 #### [facility] [address] [place], [address] GAP 4 Low 5-15 [facility] Comment on above: Order Comment: Order Date: 12/08/24 Order Info: 0786-1 - CMP Performed By: #### L 100.0100, L500.4050, L501.9985 #### [facility] [address] [place], [address] GFR/1.73 sq M.predicted among non-blacks MDRD (S/P/Bld) [Vol rate/Area] 95 mL/min/{1.73_m2} Normal >60 [facility] Comment on above: Order Comment: Order Date: 12/08/24 Order Info: 0786-1 - CMP Result Comment: Non- GFR Calc Performed By: #### L 100.0100, L500.4050, L501.9985 #### [facility] [address] [place], [address] Globulin (S) [Mass/Vol] 3.7 g/dL Normal 2.2-4.2 [facility] Comment on above: Order Comment: Order Date: 12/08/24 Order Info: 0786-1 - CMP Performed By: #### L 100.0100, L500.4050, L501.9985 #### [facility] [address] [place], [address] Glucose [Mass/Vol] 99 mg/dL Normal 74-106 [facility] Comment on above: Order Comment: Order Date: 12/08/24 Order Info: 0786-1 - CMP Performed By: #### L 100.0100, L500.4050, L501.9985 #### [facility] [address] [place], [address] Potassium [Moles/Vol] 3.8 mmol/L Normal 3.5-5.1 [facility] Comment on above: Order Comment: Order Date: 12/08/24 Order Info: 0786-1 - CMP Performed By: #### L 100.0100, L500.4050, L501.9985 #### [facility] [address] [place], [address] Sodium [Moles/Vol] 135 mmol/L Low 136-145 [facility] Comment on above: Order Comment: Order Date: 12/08/24 Order Info: 0786-1 - CMP Performed By: #### L 100.0100, L500.4050, L501.9985 #### [facility] [address] [place], [address] T PROT 7.7 g/dL Normal 6.4-8.2 [facility] Comment on above: Order Comment: Order Date: 12/08/24 Order Info: 0786-1 - CMP Performed By: #### L 100.0100, L500.4050, L501.9985 #### [facility] [address] [place], [address] Urea nitrogen [Mass/Vol] 15 mg/dL Normal 7-18 [facility] Comment on above: Order Comment: Order Date: 12/08/24 Order Info: 0786-1 - CMP Performed By: #### L 100.0100, L500.4050, L501.9985 #### [facility] [address] [place], [address] Hemoglobin A1con 05-19-2024 HbA1c (Bld) [Mass fraction] 5.9 % High 3.8-5.6 [facility] Comment on above: Order Comment: Order Date: 12/08/24 Order Info: 0786-1 - CMP Result Comment: Norm al < 5.7 % Prediabetic 5.7 - 6.4 % Diabetic >or= 6.5 % Please note range changes. Performed By: #### L 100.0100, L500.4050, L501.9985 #### [facility] [address] [place], [address] Vitamin D,25 Hydroxyon 05-19 Vitamin D 25-OH 34.7 ng/mL Normal [facility] Comment on above: Order Comment: Order Date: 12/08/24 Order Info: 0786-1 - CMP Result Comment: [place] min D 25(OH) Status Range Deficiency <20 ng/mL (50nmol/L) Insufficiency 20 - 30 ng/mL (50 - 75 nmol/L) Sufficiency 30 - 100 ng/mL (75 - 250 nmol/L) Toxicity >100 ng/mL (>250 nmol/L) Performed By: #### L 100.0100, L500.4050, L501.9985 #### [facility] [address] [facility] [place], [address] Chest PA and Lateralon 04-12 Chest PA and Lateral [facility] [address] [place] [address] Chest PA and Lateral MR#: [id number] Acct: [id number] Name: VERÓNICA FRIAS Rep #: [id number] : 1980 M 43 From: Chava Garcia MD PCP: Dr. Edu Roy MD Status: [facility] CLI Study: Chest PA and Lateral Date of Exam: 04/12/24 Exam# [id number] Ordering Dr: Edu Roy MD [id number] STUDY: X-RAY CHEST REASON FOR EXAM: Male, 43 years old. Bronchitis TECHNIQUE: PA and lateral views of the chest. COMPARISON: March 30, 2024 FINDINGS: The lungs are clear and expanded. There is no demonstrated pleural abnormality. Normal size heart. Normal mediastinum and lukasz. Normal visualized pulmonary arteries. Normal visualized aortic arch and descending thoracic aorta. Normal visualized thoracic spine. Normal visualized ribs, clavicles, and shoulders. There is no demonstrated abnormality of the visualized soft tissue structures of the upper abdomen. RAD/Chest PA and Lateral IMPRESSION: Normal x-ray examination of the chest. Electronically Signed: Chava Garcia MD at 8:35 EST , CC: Dr. Edu Roy MD Client Relation Specialist: Signed Normal [facility] Chest PA and Lateralon 03-30 Chest PA and Lateral [facility] [address] [place], [place] [address] Chest PA and Lateral MR#: [id number] Acct: [id number] Name: VERÓNICA FRIAS Rep #: [id number] : 1980 M 43 From: Fito cooley MD PCP: Dr. Edu Roy MD Status: [facility] Study: Chest PA and Lateral Date of Exam: 03/30/24 Exam# [id number] Ordering Dr: Rafiq Hollis [place] [id number] STUDY: X-RAY CHEST REASON FOR EXAM: Male, 43 years old. Persistent cough TECHNIQUE: PA and lateral views of the chest. COMPARISON: Comparison is made with prior study dated March 16, 2023. FINDINGS: The lungs are clear and expanded. There is no demonstrated pleural abnormality. Normal size heart. Normal mediastinum and lukasz. Normal visualized pulmonary arteries. Normal visualized aortic arch and descending thoracic aorta. There are diffuse degenerative changes of the visualized thoracic spine. Normal visualized ribs, clavicles, and shoulders. There is no demonstrated abnormality of the visualized soft tissue structures of the upper abdomen. RAD/Chest PA and Lateral IMPRESSION: No acute abnormality is seen. Electronically Signed: Fito Price MD at 10:24 EST , CC: DIMPLE Campoverde; Dr. Edu Roy MD Client Relation Specialist: Signed Normal [facility] Urgent Care Visit Reporton 1 05-30-2023 Urgent Care Visit Report [facility] [address], [address] [place] [address] OFFICE VISIT Date of Service: 03/30/24 MR#: [id number] Acct: [id number] Name: VERÓNICA FRIAS Rep #: [id number] : 1980 Provider: DIMPLE Campoverde Age/Sex: 43/M Location[place] [facility] Status: Signed Intake Vital Signs 08/06/23 14:47 03/30/24 09:39 Height 5 ft 8 in 5 ft 8 in Weight: 191 lb 193 lb 4 oz BMI 29.0 29.3 BP 142/84 H 138/80 H Blood Pressure Location Lt brachial Lt brachial Position Sitting Sitting Respiration 15 18 Pulse 88 94 Pulse Source NIBP Monitor Temp 97.9 F 98.8 F Temp Source Temporal Oral Pulse Oximetry (%) 97 97 Oxygen Delivery Method room air room air Intake Visit Reasons: Phlegm Chief Complaint: Phlegm Distribution A [employer] Required: No Is patient in pain?: No Allergies No Known Allergies Allergy (Verified 03/30/24 09:40) Medications ???Medication ???Instructions ???Recorded ???Confirmed ???Type fluoxetine 20 mg capsule 20 mg PO DAILY 08/06/23 03/30/24 History azithromycin 250 mg tablet See Rx Instructions PO .COMPLEX #6 03/30/24 03/30/24 Rx tabs pseudoephedrine 60 mg-DM 15 1 tab PO Q4-6H PRN cold symptoms 03/30/24 03/30/24 Rx mg-guaifenesin 400 mg tablet #20 tabs (Capmist DM) Nurse's Note: Had cough and congestion first part of March and symptoms seemed to slowly resolve. Middle daughter was diagnosed with pneumonia at the same time. Now symptoms seem to be returning and noticing increase phlegm in throat that also seems to be draining from sinuses and coughing up a yellow phlegm. Ran fever last evening of 100.0 and took Ibuprofen. Concerned with the fact he is to leave tomorrow for [place]. [facility] Medical History Acute respiratory failure with hypoxia Hypoxemia 2019 novel coronavirus-infected pneumonia (NCIP) Skin lesion Scalp cyst Surgical History History of wisdom tooth extraction Family History Father Diabetes Social History Smoking Status: Never smoker alcohol intake: current alcohol intake frequency: a few times a month substance use type: does not use HPI HPI Chief Complaint: Phlegm Details: VERÓNICA FRIAS, is a 43 M who presents to the office today for complaint of cough and congestion. Patient states that the cough and congestion started 3 weeks ago and then seem to resolve mostly however over the past several days has gotten worse again. Patient does state that his daughter was diagnosed with pneumonia. He also states that he had a fever of 100 ???F yesterday which did come down with ibuprofen. Patient denies hemoptysis, shortness of breath or difficulty breathing. No nausea, vomiting, diarrhea. No loss of taste or smell. No other associated symptoms or alleviating/aggravati ng factors. ROS Const Constitutional: No other (6 system ROS completed with pertinent findings in the HPI otherwise normal.) Exam Const General: cooperative and well developed HENAR Head: normal to inspection and atraumatic Ears: hearing grossly normal bilaterally Nose: nasal discharge clear Face and sinus: normal facial exam Mouth: oral mucosae normal Throat: abnormal tonsil bilaterally hypertrophy 1+ Resp Effort Inspection: normal respiratory effort and no audible wheezes Auscultation: Bilateral: Clear to Auscultation Cardio Rate: regular rate Rhythm: regular rhythm Neuro General: patient alert Psych Appearance: grossly normal Mental Status: mental status grossly normal Coding Level of Care Code Off vis,est,level 4 Diagnoses Acute bronchitis J20.9 Assessment and Plan Assessment and Plan (1) Acute bronchitis: Status: Acute Orders: Orders Chest PA and Lateral Today J20.9 - Acute bronchitis, unspecified Medications: New azithromycin take 500 mg today (day 1), then 250 mg for 4 days (days 2-5) PO 6 tabs 0RF qyefzksbhytgpeh-DA-tu aifenesin 60-15-400 mg (Capmist DM) do not exceed 4 doses per 24 hrs 1 TAB PO Q4-6H PRN 20 tabs 0RF cold symptoms Plan Chest x-ray read and interpreted by myself find no acute cardiopulmonary disease, awaiting radiology interpretation at time of patient discharge. Azithromycin as prescribed today. Encouraged to get plenty of rest, drink lots of clear liquids, and use Tylenol or Ibuprofen (unless contraindicated) for fever and comfort. Patient also educated on other symptomatic management techniques. To be seen in 7-10 days if no improvement; sooner if worsening of symptoms. Patient advised of potential red flags and when appropriate to report to the ED. Patient verbalized understanding and agreement with all the above. (more content not included)... [facility] ) VERÓNICA FRIAS Ml ([id number]) 1980 M Date Time Provider Department 01/11/24 6:15 PM NATE ZELAYA [facility] During your visit today, we recorded the following information about you: Temperature Pulse Respiration Blood pressure 97.6 degrees 66/minute 18/minute 157/68 Weight 87 kg Nate Zelaya APRN.CNP 01/11/2024 6:36 PM Signed This note was created using NoteWriter. Subjective Verónica Aguilarjuanyalejandra is a 43 year old male. 43 year old male with PMH IBS and hyperlipidemia presents for illness. Acute onset 2 to 3 weeks ago Initially started on left knee Has since progressed to face and back of head. +itching +redness +crusting +honey colored +oozing Denies new lotions, soaps, or medicines Denies recent travel outside of country. Denies URI Denies fever or chills Denies malaise or fatigue Endorses that his daughter had impetigo. The history is provided by the patient. No station installer was used. Rash This is a new problem. The current episode started 1 to 4 weeks ago. The problem has been gradually worsening since onset. The rash is diffuse. The rash is characterized by redness and draining (crusted areas). Associated with: impetigo. Pertinent negatives include no anorexia, congestion, cough, diarrhea, eye pain, facial edema, fatigue, fever, joint pain, nail changes, rhinorrhea, shortness of breath, sore throat or vomiting. Treatments tried: muporicin. The treatment provided no relief. There is no history of allergies, asthma, eczema or varicella. PAST MEDICAL HISTORY No date: Irritable bowel syndrome PAST SURGICAL HISTORY No date: NONE ALLERGIES Paxil [Paroxetine Hcl] MEDICATIONS FLUoxetine (PROZAC) 20 mg capsule take 1 capsule by mouth once daily MULTIVITAMIN ORAL Take by mouth. cephALEXin (KEFLEX) 500 mg capsule Take 1 capsule by mouth four times daily for 7 days. No family history on file. Social History Tobacco Use Smoking status: Never Smokeless tobacco: Never Substance Use Topics Alcohol use: No Drug use: No Review of Systems Constitutional: Negative for fatigue and fever. HENT: Negative for congestion, rhinorrhea and sore throat. Eyes: Negative for pain. Respiratory: Negative for apnea, cough, chest tightness and shortness of breath. Cardiovascular: Negative for chest pain, palpitations and leg swelling. Gastrointestinal: Negative for anorexia, diarrhea and vomiting. Musculoskeletal: Negative for joint pain. Skin: Positive for rash. Negative for nail changes. Allergic/Immunologic: Negative for environmental allergies, food allergies and immunocompromised state. Neurological: Negative for dizziness, facial asymmetry and headaches. Hematological: Negative for adenopathy. Does not bruise/bleed easily. Psychiatric/Behaviora l: Negative for agitation and behavioral problems. Objective BP 157/68 Pulse 66 Temp 36.4 ?C (97.6 ?F) Resp 18 Wt 87 kg (191 lb 12.8 oz) SpO2 100% BMI 29.17 kg/m? Physical Exam Vitals and nursing note reviewed. Constitutional: General: He is not in acute distress. Appearance: Normal appearance. He is not ill-appearing, toxic-appearing or diaphoretic. HENT: Head: Normocephalic and atraumatic. Right Ear: External ear normal. Left Ear: External ear normal. Nose: Nose normal. No congestion or rhinorrhea. Mouth/Throat: Mouth: Mucous membranes are moist. Pharynx: Oropharynx is clear. No oropharyngeal exudate or posterior oropharyngeal erythema. Eyes: General: Right eye: No discharge. Left eye: No discharge. Extraocular Movements: Extraocular movements intact. Conjunctiva/sclera: Conjunctivae normal. Pupils: Pupils are equal, round, and reactive to light. Cardiovascular: Rate and Rhythm: Normal rate and regular rhythm. Pulses: Normal pulses. Heart sounds: Normal heart sounds. No murmur heard. No friction rub. No gallop. Pulmonary: Effort: Pulmonary effort is normal. No respiratory distress. Breath sounds: Normal breath sounds. No stridor. No wheezing, rhonchi or rales. Chest: Chest wall: No tenderness. Abdominal: General: Abdomen is flat. There is no distension. Palpations: Abdomen is soft. There is no mass. Tenderness: There is no abdominal tenderness. There is no guarding or rebound. Hernia: No hernia is present. Musculoskeletal: General: No swelling, tenderness, deformity or signs of injury. Normal range of motion. Cervical back: Normal range of motion and neck supple. No rigidity or tenderness. Right lower leg: No edema. Left lower leg: No edema. Lymphadenopathy: Cervical: No cervical adenopathy. Skin: General: Skin is warm and dry. Capillary Refill: Capillary refill takes less than 2 seconds. Coloration: Skin is not jaundiced or pale. Findings: Erythema and rash present. No bruising or lesion. Comments: Left chin region with (more content not included)... Normal [facility] Basophil percentageOrdered B y: Edu Kirill on 04-19-2023 Bilirubin [Mass/Vol] 0.40 mg/dL 0.20-1.00 [facility] Comment on above: For patients on eltr ombopag therapy, use of Dim[place] TBIL is not recommended. Chloride [Moles/Vol] 104 mmol/L 98-107 [facility] Glucose [Mass/Vol] 108 mg/dL 74-106 [facility] Comment on above: Fasting Glucose resu lt from 100 to 125 mg/dL suggests IMPAIRED HOMEOSTASIS per A.D.A. criteria. Potassium [Moles/Vol] 3.9 mmol/L 3.5-5.1 [facility] Protein [Mass/Vol] 7.9 g/dL 6.4-8.2 [facility] Sodium [Moles/Vol] 139 mmol/L 136-145 [facility] Laboratory - Chemistry and C hemistry - challengeOrdered By: Edu Roy on 04-19-2023 ALP [Catalytic activity/Vol] 54 U/L 45-117 [facility] ALT [Catalytic activity/Vol] 38 U/L 16-61 [facility] CO2 [Moles/Vol] 28.0 mmol/L 21.0-32.0 [facility] Globulin (S) [Mass/Vol] 3.9 g/dL 2.2-4.2 [facility] Urea nitrogen/Creatinine [Mass ratio] 10.9 mg/mg 10-20 [facility] No Panel InformationOrdered By: Edu Roy on 04-19-2023 Estimated GFR (MDRD) Amer 78 mL/min >60 [facility] Comment on above: GFR Calc Estimated GFR (MDRD) Non-Af Amer 65 mL/min >60 [facility] Comment on above: Non- GFR Calc Vitamin D 25-Hydroxy 47.6 ng/mL [facility] Comment on above: Vitamin D 25(OH) Sta tus Range Deficiency <20 ng/mL (50nmol/L) Insufficiency 20 - 30 ng/mL (50 - 75 nmol/L) Sufficiency 30 - 100 ng/mL (75 - 250 nmol/L) Toxicity >100 ng/mL (>250 nmol/L) Serum or plasma albumin wilfrid urement (mass/volume)Ordered By: Edu Roy on 04-19-2023 Albumin [Mass/Vol] 4.0 g/dL 3.2-5.0 [facility] Serum or plasma albumin/glob ulin mass ratioOrdered By: Edu Roy on 04-19-2023 Albumin/Globulin [Mass ratio] 1.0 {ratio} 0.9-2.4 [facility] Serum or plasma calcium wilfrid urement (mass/volume)Ordered By: Edu Roy on 04-19-2023 Calcium [Mass/Vol] 8.9 mg/dL 8.5-10.1 [facility] Serum or plasma creatinine m easurement (mass/volume)Ordered By: Edu Roy on 04-19-2023 Creatinine [Mass/Vol] 1.29 mg/dL 0.70-1.30 [facility] Comment on above: The validity of the calculated GFR & GFRAA in patients over 70 years has not been determined. Clinical correlation is essential. Serum or plasma urea nitroge n measurement (mass/volume)Ordered By: Edu Roy on 04-19-2023 Urea nitrogen [Mass/Vol] 14 mg/dL 7-18 [facility] Thin prep Papanicolaou smear with manual screeningOrdered By: Edu Roy on 04-19-2023 Thin prep Papanicolaou smear with manual screening 26 U/L 15-37 [facility] Thin prep Papanicolaou smear with manual screening 7 5-15 [facility] Whole blood hemoglobin A1c/t otal hemoglobin ratio (mass fraction)Ordered By: Edu Roy on 04-19-2023 HbA1c (Bld) [Mass fraction] 5.7 % 3.8-5.6 [facility] Comment on above: Normal < 5.7 % Predi abetic 5.7 - 6.4 % Diabetic >or= 6.5 % Please note range changes. Basophil percentageOrdered B y: Dr. Roy on 06-19-2022 Bilirubin [Mass/Vol] 0.40 mg/dL 0.20-1.00 [facility] Comment on above: For patients on eltr ombopag therapy, use of [place] TBIL is not recommended. Chloride [Moles/Vol] 104 mmol/L 98-107 [facility] Glucose [Mass/Vol] 91 mg/dL 74-106 [facility] Potassium [Moles/Vol] 4.0 mmol/L 3.5-5.1 [facility] Protein [Mass/Vol] 7.7 g/dL 6.4-8.2 [facility] Sodium [Moles/Vol] 140 mmol/L 136-145 [facility] Laboratory - Chemistry and C hemistry - challengeOrdered By: Dr. Roy on 06-19-2022 ALP [Catalytic activity/Vol] 50 U/L 45-117 [facility] ALT [Catalytic activity/Vol] 42 U/L 16-61 [facility] CO2 [Moles/Vol] 28.0 mmol/L 21.0-32.0 [facility] Free T4 [Mass/Vol] 0.86 ng/dL 0.76-1.46 [facility] Globulin (S) [Mass/Vol] 3.5 g/dL 2.2-4.2 [facility] Urea nitrogen/Creatinine [Mass ratio] 17.4 mg/mg 10-20 [facility] No Panel InformationOrdered By: Dr. Roy on 06-19-2022 Estimated GFR (MDRD) Amer 95 mL/min >60 [facility] Comment on above: GFR Calc Estimated GFR (MDRD) Non-Af Amer 79 mL/min >60 [facility] Comment on above: Non- GFR Calc Thyroid Stimulating Hormone (TSH) 0.75 uIU/mL 0.358-3.74 [facility] Vitamin D 25-Hydroxy 55.1 ng/mL [facility] Comment on above: Vitamin D 25(OH) Sta tus Range Deficiency <20 ng/mL (50nmol/L) Insufficiency 20 - 30 ng/mL (50 - 75 nmol/L) Sufficiency 30 - 100 ng/mL (75 - 250 nmol/L) Toxicity >100 ng/mL (>250 nmol/L) Serum or plasma albumin wilfrid urement (mass/volume)Ordered By: Dr. Roy on 06-19-2022 Albumin [Mass/Vol] 4.2 g/dL 3.2-5.0 [facility] Serum or plasma albumin/glob ulin mass ratioOrdered By: Dr. Roy on 06-19-2022 Albumin/Globulin [Mass ratio] 1.2 {ratio} 0.9-2.4 [facility] Serum or plasma calcium wilfrid urement (mass/volume)Ordered By: Dr. Roy on 06-19-2022 Calcium [Mass/Vol] 9.5 mg/dL 8.5-10.1 [facility] Serum or plasma creatinine m easurement (mass/volume)Ordered By: Dr. Roy on 06-19-2022 Creatinine [Mass/Vol] 1.09 mg/dL 0.70-1.30 [facility] Comment on above: The validity of the calculated GFR & GFRAA in patients over 70 years has not been determined. Clinical correlation is essential. Serum or plasma urea nitroge n measurement (mass/volume)Ordered By: Dr. Roy on 06-19-2022 Urea nitrogen [Mass/Vol] 19 mg/dL 7-18 [facility] Thin prep Papanicolaou smear with manual screeningOrdered By: Dr. Roy on 06-19-2022 Thin prep Papanicolaou smear with manual screening 26 U/L 15-37 [facility] Thin prep Papanicolaou smear with manual screening 8 5-15 [facility] Whole blood hemoglobin A1c/t otal hemoglobin ratio (mass fraction)Ordered By: Dr. Roy on 06-19-2022 HbA1c (Bld) [Mass fraction] 5.9 % 3.8-5.6 [facility] Comment on above: Normal < 5.7 % Predi abetic 5.7 - 6.4 % Diabetic >or= 6.5 % Please note range changes. Basophil percentageon 2021 Chloride [Moles/Vol] 99 mmol/L 98-107 [facility] Work Phone: Glucose [Mass/Vol] 118 mg/dL 74-106 [facility] Work Phone: Comment on above: Fasting Glucose resu lt from 100 to 125 mg/dL suggests IMPAIRED HOMEOSTASIS per A.D.A. criteria. Potassium [Moles/Vol] 3.5 mmol/L 3.5-5.1 [facility] Work Phone: Sodium [Moles/Vol] 135 mmol/L 136-145 [facility] Work Phone: Laboratory - Chemistry and C hemistry - challengeon 02-27-2022 CO2 [Moles/Vol] 28.0 mmol/L 21.0-32.0 [facility] Work Phone: Urea nitrogen/Creatinine [Mass ratio] 16.3 mg/mg 10- [facility] Work Phone: No Panel Informationon 02-27 Estimated GFR (MDRD) Amer 101 mL/min >60 [facility] Work Phone: Comment on above: GFR Calc Estimated GFR (MDRD) Non-Af Amer 83 mL/min >60 [facility] Work Phone: Comment on above: Non- GFR Calc Thyroglobulin Antibody < 1.0 IU/mL 0.0-0.9 [facility] Work Phone: Comment on above: Thyroglobulin Antibo dy measured by [employer] CoulterMethod[employer] Thyroglobulin Level 17.3 ng/mL 1.4-29.2 [facility] Work Phone: Comment on above: According to the [facility] Academy of Clinical Biochemistry,the reference interval for Thyroglobulin (TG) should berelated to euthyroid patients and not for patients whounderwent thyroidectomy. TG reference intervals for thesepatients depend on the residual mass of the thyroid tissueleft after surgery. Establishing a post-operative baselineis recommended. The assay limit of quantitation is 0.1ng/mLThyroglobulin measured by [employer] Serum or plasma calcium wilfrid urement (mass/volume)on 02-27-2022 Calcium [Mass/Vol] 9.2 mg/dL 8.5-10.1 [facility] Work Phone: Serum or plasma creatinine m easurement (mass/volume)on 02-27-2022 Creatinine [Mass/Vol] 1.04 mg/dL 0.70-1.30 [facility] Work Phone: Comment on above: The validity of the calculated GFR & GFRAA in patients over 70 years has not been determined. Clinical correlation is essential. Serum or plasma thyroperoxid ase antibody assay (units/volume)on 02-27-2022 TPO Ab Qn [IU]/mL 0-34 [facility] Work Phone: Comment on above: Performed at: [address] [id number] Director: Ozzy Nino MD, Phone: [phone] at: [facility] [id number] Director: Nikita Gutierrez PhD, Phone: [phone] Serum or plasma urea nitroge n measurement (mass/volume)on 02-27-2022 Urea nitrogen [Mass/Vol] 17 mg/dL 7-18 [facility] Work Phone: Thin prep Papanicolaou smear with manual screeningon 02-27-2022 Thin prep Papanicolaou smear with manual screening 8 5-15 [facility] Work Phone: Thyroid stimulating immunogl obulins detectionon 02-27-2022 Thyroid stimulating immunoglobulins Ql (S) <0.10 IU/L 0.00-0.55 [facility] Work Phone: Absolute lymphocyte counton 02-13-2022 Lymphocytes Auto (Unsp spec) [#/Vol] 2.15 10*3/uL 0.83-4.51 [facility] Work Phone: Basophil percentageon 2021 Basophils/100 WBC (Bld) 0.5 % 0-1 [facility] Work Phone: Bilirubin [Mass/Vol] 0.30 mg/dL 0.20-1.00 [facility] Work Phone: Comment on above: For patients on eltr ombopag therapy, use of [place] TBIL is not recommended. Chloride [Moles/Vol] 108 mmol/L 98-107 [facility] Work Phone: Eosinophils/100 WBC (Bld) 3.6 % 0-5 [facility] Work Phone: Glucose [Mass/Vol] 130 mg/dL 74-106 [facility] Work Phone: Comment on above: Fasting Glucose resu lt greater than or equal to 126 mg/dL suggests DIABETES MELLITUS per A.D.A. criteria. Neutrophils (Bld) [#/Vol] 5.0 10*3/uL 2.0-7.7 [facility] Work Phone: Neutrophils/100 WBC (Bld) 62.9 % 47-70 [facility] Work Phone: Potassium [Moles/Vol] 3.6 mmol/L 3.5-5.1 [facility] Work Phone: Protein [Mass/Vol] 7.7 g/dL 6.4-8.2 [facility] Work Phone: Sodium [Moles/Vol] 141 mmol/L 136-145 [facility] Work Phone: WBC (Bld) [#/Vol] 8.0 10*3/uL 4.4-11.0 [facility] Work Phone: Blood erythrocytes count (nu mber/volume)on 02-13-2022 RBC (Bld) [#/Vol] 5.23 10*6/uL 4.6-6.2 [facility] Work Phone: Blood hemoglobin measurement (mass/volume)on 02-13-2022 Hemoglobin (Bld) [Mass/Vol] 14.4 g/dL 13.0-16.5 [facility] Work Phone: Blood lymphocytes/100 leukoc yteson 02-13-2022 Lymphocytes/100 WBC (Bld) 26.8 % 19-41 [facility] Work Phone: Blood monocytes/100 leukocyt eson 02-13-2022 Monocytes/100 WBC (Bld) 5.5 % 0-10 [facility] Work Phone: Blood platelet mean volumeon 02-13-2022 Platelet mean volume (Bld) [Entitic vol] 11.6 fL 6.2-12.0 [facility] Work Phone: Determination of erythrocyte mean corpuscular volume (MCV)on 02-13-2022 MCV (RBC) [Entitic vol] 83.2 fL 80-94 [facility] Work Phone: Hematocrit Auto (Bld) [Volum e fraction]on 02-13-2022 Hematocrit (Bld) [Volume fraction] 43.5 % 40-54 [facility] Work Phone: Laboratory - Chemistry and C hemistry - challengeon 02-13-2022 ALP [Catalytic activity/Vol] 53 U/L 45-117 [facility] Work Phone: ALT [Catalytic activity/Vol] 53 U/L 16-61 [facility] Work Phone: CO2 [Moles/Vol] 24.0 mmol/L 21.0-32.0 [facility] Work Phone: Cobalamin (Vitamin B12) [Mass/Vol] 441 pg/mL 211-911 [facility] Work Phone: Free T4 [Mass/Vol] 0.80 ng/dL 0.76-1.46 [facility] Work Phone: Globulin (S) [Mass/Vol] 3.9 g/dL 2.2-4.2 [facility] Work Phone: Urea nitrogen/Creatinine [Mass ratio] 18.1 mg/mg 10-20 [facility] Work Phone: Laboratory - Hematology and Cell countson 02-13-2022 Erythrocyte distribution width (RBC) [Entitic vol] 40.6 fL 35.1-43.9 [facility] Work Phone: Erythrocyte distribution width (RBC) [Ratio] 13.4 % 11.6-14.6 [facility] Work Phone: Immature granulocytes/100 WBC (Bld) 0.700 % 0.0-0.9 [facility] Work Phone: Comment on above: IG% - Immature Granu locytes (promyelocytes, myelocytes and metamyelocytes) > 1% indicates that a LEFT SHIFT is Present. MCH (RBC) [Entitic mass] 27.5 pg 27.0-32.0 [facility] Work Phone: Nucleated RBC/100 WBC (Bld) [Ratio] 0 % 0-5 [facility] Work Phone: MCHC Auto (RBC) [Mass/Vol]on 02-13-2022 MCHC (RBC) [Mass/Vol] 33.1 g/dL 32-36 [facility] Work Phone: No Panel Informationon 02-13 Estimated GFR (MDRD) Amer 69 mL/min >60 [facility] Work Phone: Comment on above: GFR Calc Estimated GFR (MDRD) Non-Af Amer 57 mL/min >60 [facility] Work Phone: Comment on above: Non- GFR Calc Thyroglobulin Antibody < 1.0 IU/mL 0.0-0.9 [facility] Work Phone: Comment on above: Thyroglobulin Antibo dy measured by [employer]terMethodology Thyroglobulin Level 15.9 ng/mL 1.4-29.2 [facility] Work Phone: Comment on above: According to the [facility] Academy of Clinical Biochemistry,the reference interval for Thyroglobulin (TG) should berelated to euthyroid patients and not for patients whounderwent thyroidectomy. TG reference intervals for thesepatients depend on the residual mass of the thyroid tissueleft after surgery. Establishing a post-operative baselineis recommended. The assay limit of quantitation is 0.1ng/mLThyroglobulin measured by [employer] Thyroid Stimulating Hormone (TSH) 0.34 uIU/mL 0.358-3.74 [facility] Work Phone: Vitamin D 25-Hydroxy 83.0 ng/mL [facility] Work Phone: Comment on above: Vitamin D 25(OH) Sta tus Range Deficiency <20 ng/mL (50nmol/L) Insufficiency 20 - 30 ng/mL (50 - 75 nmol/L) Sufficiency 30 - 100 ng/mL (75 - 250 nmol/L) Toxicity >100 ng/mL (>250 nmol/L) Platelets bldon 02-13-2022 Platelets (Bld) [#/Vol] 231 10*3/uL 150-450 [facility] Work Phone: Serum or plasma albumin wilfrid urement (mass/volume)on 02-13-2022 Albumin [Mass/Vol] 3.8 g/dL 3.2-5.0 [facility] Work Phone: Serum or plasma albumin/glob ulin mass ratioon 02-13-2022 Albumin/Globulin [Mass ratio] 1.0 {ratio} 0.9-2.4 [facility] Work Phone: Serum or plasma calcium wilfrid urement (mass/volume)on 02-13-2022 Calcium [Mass/Vol] 9.0 mg/dL 8.5-10.1 [facility] Work Phone: Serum or plasma creatinine m easurement (mass/volume)on 02-13-2022 Creatinine [Mass/Vol] 1.44 mg/dL 0.70-1.30 [facility] Work Phone: Comment on above: The validity of the calculated GFR & GFRAA in patients over 70 years has not been determined. Clinical correlation is essential. Serum or plasma thyroperoxid ase antibody assay (units/volume)on 02-13-2022 TPO Ab Qn 15 [IU]/mL 0-34 [facility] Work Phone: Comment on above: Performed at: - [address] [id number] Director: Ozzy Nino MD, Phone: [phone] at: - [facility] [id number] Director: Nikita Gutierrez PhD, Phone: [phone] Serum or plasma urea nitroge n measurement (mass/volume)on 02-13-2022 Urea nitrogen [Mass/Vol] 26 mg/dL 7-18 [facility] Work Phone: Thin prep Papanicolaou smear with manual screeningon 02-13-2022 Thin prep Papanicolaou smear with manual screening 27 U/L 15-37 [facility] Work Phone: Thin prep Papanicolaou smear with manual screening 9 5-15 [facility] Work Phone: Thyroid stimulating immunogl obulins detectionon 02-13-2022 Thyroid stimulating immunoglobulins Ql (S) <0.10 IU/L 0.00-0.55 [facility] Work Phone: XR CHEST FLUOROSCOPY (SNIFF TEST)on 04-08-2021 XR CHEST FLUOROSCOPY (SNIFF TEST) ORIGINAL EXAMINATION: FLUOROSCOPIC SNIFF TEST TECHNIQUE: Fluoroscopic images obtained upon normal and exaggerated breathing. FLUOROSCOPY DOSE AND TYPE OR TIME AND EXPOSURES: Fluoro Time: 2 seconds Dose: 262.30 mGy Images: 55 HISTORY: ORDERING SYSTEM PROVIDED HISTORY: Reason for Exam: pneumonia due to covid 19 FINDINGS: Upon normal and exaggerated breathing, the right and left hemidiaphragms exhibit normal symmetric movement upon inspiration and expiration. No paradoxical movement is present. IMPRESSION: Unremarkable fluoroscopic sniff test. Interpreted by: Adan Johnson DO Preliminary Report By: Adan Johnson DO Electronically signed By Adan Johnson DO Dictated Date: 04/08/2021 11:50:33 AM Prelim Date: 04/08/2021 11:52:43 AM Sign Date: 04/08/2021 11:52:43 AM Ordering Provider: [facility] ([place]) CT ANGIOGRAPHY CHEST W/CONTR Carol 03-07-2021 CT ANGIOGRAPHY CHEST W/CONTRAST ORIGINAL EXAMINATION: CTA OF THE CHEST 03/07/2021 11:59 am TECHNIQUE: CTA of the chest was performed after the administration of intravenous contrast. Multiplanar reformatted images are provided for review. MIP images are provided for review. Dose modulation, iterative reconstruction, and/or weight based adjustment of the mA/kV was utilized to reduce the radiation dose to as low as reasonably achievable. COMPARISON: None. HISTORY: ORDERING SYSTEM PROVIDED HISTORY: Reason for Exam: PE, PNEUMONIA DUE TO COVID 19 FINDINGS: Pulmonary Arteries: Pulmonary arteries are adequately opacified for evaluation. No evidence of intraluminal filling defect to suggest pulmonary embolism. Main pulmonary artery is normal in caliber. Mediastinum: Numerous borderline mediastinal lymph nodes are noted likely reactive in nature. The heart and pericardium demonstrate no acute abnormality. There is no acute abnormality of the thoracic aorta. Lungs/pleura: Evaluation of the lungs demonstrates diffuse interstitial and ground-glass opacities throughout all lung lobes bilaterally. There is no pleural effusion or pneumothorax. Upper Abdomen: Limited images of the upper abdomen demonstrates hepatic steatosis. Soft Tissues/Bones: No acute bone or soft tissue abnormality. IMPRESSION: No evidence of pulmonary embolism. Diffuse interstitial and ground-glass opacities throughout the lungs on the basis of COVID-19 pneumonia. Reactive mediastinal lymphadenopathy. Hepatic steatosis. Interpreted by: Jose J Becerra MD Preliminary Report By: Jose J Becerra MD Electronically signed By Jose J Becerra MD Dictated Date: 03/07/2021 12:19:34 PM Prelim Date: 03/07/2021 12:23:30 PM Sign Date: 03/07/2021 12:23:30 PM Ordering Provider: KATEHRINE ZAPATA [facility] ([place]) Vital Signs Date Time Vital Sign Value Performing Clinician Ruslani lity 01-11-2024 18:19-0400 Body mass index (BMI) [Ratio] 29.17 kg/m2 Nate Zelaya APARTMENT ASSISTANT MANAGER.COMPENSATION ADVISOR Work Phone: [facility] 01-11-2024 18:19-0400 Body temperature 97.59 [degF] Nate Zelaya APARTMENT ASSISTANT MANAGER.COMPENSATION ADVISOR Work Phone: [facility] 01-11-2024 18:19-0400 Body weight 87 kg Nate Zelaya APARTMENT ASSISTANT MANAGER.COMPENSATION ADVISOR Work Phone: [facility] 01-11-2024 18:19-0400 Diastolic blood pressure 68 mm[Hg] Nate Zelaya APARTMENT ASSISTANT MANAGER.COMPENSATION ADVISOR Work Phone: [facility] 01-11-2024 18:19-0400 Heart rate 66 /min Nate Zelaya APARTMENT ASSISTANT MANAGER.COMPENSATION ADVISOR Work Phone: [facility] 01-11-2024 18:19-0400 Respiratory rate 18 /min Nate Zelaya APARTMENT ASSISTANT MANAGER.COMPENSATION ADVISOR Work Phone: [facility] 01-11-2024 18:19-0400 SaO2% (BldA) [Mass fraction] 100 % Nate Zelaya APARTMENT ASSISTANT MANAGER.COMPENSATION ADVISOR Work Phone: [facility] 01-11-2024 18:19-0400 Systolic blood pressure 157 mm[Hg] Nate Zelaya APRN.COMPENSATION ADVISOR Work Phone: [facility] Encounters Encounter Date Encounter Type Care Provider Facility Start: 12-08-2024 End: 12-08-[address] Edu Roy MD Work Phone: -[facility] Start: 12-08-2024 End: 12-08-[address] Edu Roy MD -[facility] Start: 12-08-2024 End: 12-08-2024 ambulatory Edu Roy Facility:[facility] Start: 06-09-2024 End: 06-09-2024 ambulatory Edu Roy Facility:[facility] Start: 05-19-2024 End: 05-19-2024 ambulatory Edu Roy Facility:[facility] Start: 04-12-2024 End: 04-12-2024 ambulatory Edu Roy Facility:[facility] Start: 03-30-2024 End: 03-30-2024 ambulatory Rafiq MUSA [place] Start: 03-30-2024 End: 03-30-2024 ambulatory Rafiq MUSA Facility:[facility] Start: 01-11-2024 End: 01-11-2024 ambulatory MELLISA SCHULTZ Facility:[facility] Start: 01-11-2024 End: 01-11-2024 Patient encounter procedure Nate Zelaya APRN.COMPENSATION ADVISOR Work Phone: [facility] Comment on above: Impetigo (Primary Dx ) Start: 04-19-2023 End: 04-19-2023 ambulatory [facility] Work Phone: Start: 04-19-2023 End: 04-19-2023 Patient encounter procedure [facility] Work Phone: Start: 03-16-2023 End: 03-16-2023 ambulatory [facility] Work Phone: Start: 03-16-2023 End: 03-16-2023 Patient encounter procedure [facility] [place] Work Phone: Start: 06-19-2022 End: 06-19-2022 ambulatory [facility] Work Phone: Start: 06-19-2022 End: 06-19-2022 Patient encounter procedure [facility] Start: 02-27-2022 End: 02-27-2022 ambulatory [facility] Work Phone: Start: 02-27-2022 End: 02-27-2022 Patient encounter procedure [facility] Start: 02-13-2022 End: 02-13-2022 ambulatory [facility] Work Phone: Start: 02-13-2022 End: 02-13-2022 Patient encounter procedure [facility] Start: 01-29-2022 Refill Tory Best APRN. COMPENSATION ADVISOR Work Phone: [facility] Comment on above: Refill Request Start: 01-01-2022 Refill Mellisa sidhu MD Work Phone: [facility] Comment on above: Refill Request Start: 04-08-2021 End: 04-08-2021 Patient encounter procedure KATHERINE ZAPATA MD [facility] Start: 03-07-2021 End: 03-07-2021 Patient encounter procedure KATHERINE ZAPATA MD [facility] Procedures Date Procedure Procedure Detail Performing Clinician Start: 03-16-2023 Plain chest X-ray Start: 05-05-2021 Adult depression screening assessment Mellisa Schultz MD Work Phone: Start: 01-15-2018 Lipid 1996 panel - S beatriz or Plasma Nate Zelaya APRN.COMPENSATION ADVISOR Work Phone: Plan of Treatment Date Care Activity Detail Author Start: 01-09-2024 Covid-19 Vaccine () Covid-19 Vaccine () [facility] Start: 01-09-2024 Influenza [facility] Start: 01-15-2023 Lipid panel Lipid Screening [facility] Start: 01-15-2023 LIPID SCREEN LIPID SCREEN [facility] Start: 05-05-2022 Adult depression screening assessment DEPRESSION SCREENING [facility] Start: 01-08-2022 Influenza vaccination INFLUENZA (#1) [facility] Start: 04-28-2021 [facility] Start: 10-08-1998 Hepatitis B Vaccine (1 of 3 - 19+ 3-dose series) Hepatitis B Vaccine (1 of 3 - 19+ 3-dose series) [facility] Start: 10-08-1997 Anxiety Screening Anxiety Screening [facility] Start: 10-08-1997 Depression Screening Depression Screening [facility] Start: 10-08-1997 HEPATITIS C SCREENING HEPATITIS C SCREENING [facility] Start: 10-08-1997 Hepatitis C screening Hepatitis C Screening [facility] Start: 10-08-1997 HIV SCREENING HIV SCREENING [facility] Start: 10-08-1997 HIV screening HIV Screening [facility] Start: 04-09-1980 COVID-19 VACCINE (#1) COVID-19 VACCINE (#1) [facility] Start: 1979 HEPATITIS B (1 of 3 - 3-dose series) HEPATITIS B (1 of 3 - 3-dose series) [facility] Thyroglobulin antibo dy measurement [facility] Work Phone: Thyroid stimulating immunoglobulins actual/normal in Serum [facility] Work Phone: Thyroperoxidase Ab [Units/volume] in Serum or Plasma [facility] Work Phone: Immunizations Immunization Date Immunization Notes Care Provider Fa cili 02-08-2020 influenza virus vaccine, unspecified formulation Nate Zelaya APRN.COMPENSATION ADVISOR Work Phone: [facility] 04-28-2011 tetanus toxoid, redu melissa diphtheria toxoid, and acellular pertussis vaccine, adsorbed Mellisa Schultz MD Work Phone: [facility] 03-23-2000 diphtheria and tetan us toxoids, adsorbed for pediatric use Mellisa Schultz MD Work Phone: [facility] Work Phone: Payers Date Payer Category Payer Self-pay [id number] 2018 Unknown [id number] 2018 Unknown [id number] 2005 Unknown [id number] Unknown [id number] Unknown [id number] Unknown [id number] Unknown [id number] Unknown [id number] Unknown [id number] Social History Date Type Detail Facility Start: 06-21-2017 End: 08-06-2023 Tobacco smoking status NHIS Never smoked tobacco [facility] Start: 06-21-2017 End: 01-11-2024 Tobacco use and exposure Smokeless tobacco non-user [facility] Start: 05-23-2021 End: 01-11-2024 Alcohol intake Current non-drinker of alcohol (finding) [facility] Start: 1980 Sex Assigned At Not on file C [facility] Start: 02-06-2021 End: 02-06-2021 Tobacco smoking status COIS Unknown if ever smoked [facility] Start: 1980 Sex Assigned At Male W [facility] Start: 04-16-2020 End: 01-11-2024 History of Social function [facility] Start: 04-16-2020 End: 01-11-2024 Tobacco use panel [facility] Adult Depression Screening Assessment 3 [facility] Clinical Notes 01-02-2022 to 01-11-2024 Nate Zelaya APRN.PAUL - 01/11/2024 6:26 PM EDTTelephone Encounter - Radha Rao MA - 01/29/2022 10:39 AM EDTTelephone Encounter - Kat Walters - 01/02/2022 9:01 AM EDT Note Date & Type Note Facility 01-11-2024 Note HNO ID: [id number] Author: NATE ZELAYA APRN.COMPENSATION ADVISOR Service: ? Author Type: Nurse Practitioner Type: Progress Notes Filed: 01/11/2024 18:36 Note Text: This note was created using [employer]uror[employer]. Subjective Verónica Frias is a 43 year old male. 43 year old male with PMH IBS and hyperlipidemia presents for illness. Acute onset 2 to 3 weeks ago Initially started on left knee Has since progressed to face and back of head. +itching +redness +crusting +honey colored +oozing Denies new lotions, soaps, or medicines Denies recent travel outside of country. Denies URI Denies fever or chills Denies malaise or fatigue Endorses that his daughter had impetigo. The history is provided by the patient. No station installer was used. Rash This is a new problem. The current episode started 1 to 4 weeks ago. The problem has been gradually worsening since onset. The rash is diffuse. The rash is characterized by redness and draining (crusted areas). Associated with: impetigo. Pertinent negatives include no anorexia, congestion, cough, diarrhea, eye pain, facial edema, fatigue, fever, joint pain, nail changes, rhinorrhea, shortness of breath, sore throat or vomiting. Treatments tried: muporicin. The treatment provided no relief. There is no history of allergies, asthma, eczema or varicella. PAST MEDICAL HISTORY No date: Irritable bowel syndrome PAST SURGICAL HISTORY No date: NONE ALLERGIES Paxil [Paroxetine Hcl] MEDICATIONS FLUoxetine (PROZAC) 20 mg capsule take 1 capsule by mouth once daily MULTIVITAMIN ORAL Take by mouth. cephALEXin (KEFLEX) 500 mg capsule Take 1 capsule by mouth four times daily for 7 days. No family history on file. Social History Tobacco Use Smoking status: Never Smokeless tobacco: Never Substance Use Topics Alcohol use: No Drug use: No Review of Systems Constitutional: Negative for fatigue and fever. HENT: Negative for congestion, rhinorrhea and sore throat. Eyes: Negative for pain. Respiratory: Negative for apnea, cough, chest tightness and shortness of breath. Cardiovascular: Negative for chest pain, palpitations and leg swelling. Gastrointestinal: Negative for anorexia, diarrhea and vomiting. Musculoskeletal: Negative for joint pain. Skin: Positive for rash. Negative for nail changes. Allergic/Immunologic: Negative for environmental allergies, food allergies and immunocompromised state. Neurological: Negative for dizziness, facial asymmetry and headaches. Hematological: Negative for adenopathy. Does not bruise/bleed easily. Psychiatric/Behavioral: Negative for agitation and behavioral problems. Objective BP 157/68 Pulse 66 Temp 36.4 ?C (97.6 ?F) Resp 18 Wt 87 kg (191 lb 12.8 oz) SpO2 100% BMI 29.17 kg/m? Physical Exam Vitals and nursing note reviewed. Constitutional: General: He is not in acute distress. Appearance: Normal appearance. He is not ill-appearing, toxic-appearing or diaphoretic. HENT: Head: Normocephalic and atraumatic. Right Ear: External ear normal. Left Ear: External ear normal. Nose: Nose normal. No congestion or rhinorrhea. Mouth/Throat: Mouth: Mucous membranes are moist. Pharynx: Oropharynx is clear. No oropharyngeal exudate or posterior oropharyngeal erythema. Eyes: General: Right eye: No discharge. Left eye: No discharge. Extraocular Movements: Extraocular movements intact. Conjunctiva/sclera: Conjunctivae normal. Pupils: Pupils are equal, round, and reactive to light. Cardiovascular: Rate and Rhythm: Normal rate and regular rhythm. Pulses: Normal pulses. Heart sounds: Normal heart sounds. No murmur heard. No friction rub. No gallop. Pulmonary: Effort: Pulmonary effort is normal. No respiratory distress. Breath sounds: Normal breath sounds. No stridor. No wheezing, rhonchi or rales. Chest: Chest wall: No tenderness. Abdominal: General: Abdomen is flat. There is no distension. Palpations: Abdomen is soft. There is no mass. Tenderness: There is no abdominal tenderness. There is no guarding or rebound. Hernia: No hernia is present. Musculoskeletal: General: No swelling, tenderness, deformity or signs of injury. Normal range of motion. Cervical back: Normal range of motion and neck supple. No rigidity or tenderness. Right lower leg: No edema. Left lower leg: No edema. Lymphadenopathy: Cervical: No cervical adenopathy. Skin: General: Skin is warm and dry. Capillary Refill: Capillary refill takes less than 2 seconds. Coloration: Skin is not jaundiced or pale. Findings: Erythema and rash present. No bruising or lesion. Comments: Left chin region with x 3 honey crusted, non tender, non streaking areas. X 1 with oozing. Similar are to nape of neck Bilateral lower extremities with similar, but smaller Neurological: General: No focal deficit present. Mental Status: He is alert and oriented to person, place, and time. Cran (more content not included)... [facility] 01-11-2024 History of Presen t illness Narrative This note was created using Wecash. Subjective Verónica Frias is a 43 year old male. 43 year old male with PMH IBS and hyperlipidemia presents for illness. Acute onset 2 to 3 weeks ago Initially started on left knee Has since progressed to face and back of head. +itching +redness +crusting +honey colored +oozing Denies new lotions, soaps, or medicines Denies recent travel outside of country. Denies URI Denies fever or chills Denies malaise or fatigue Endorses that his daughter had impetigo. The history is provided by the patient. No station installer was used. Rash This is a new problem. The current episode started 1 to 4 weeks ago. The problem has been gradually worsening since onset. The rash is diffuse. The rash is characterized by redness and draining (crusted areas). Associated with: impetigo. Pertinent negatives include no anorexia, congestion, cough, diarrhea, eye pain, facial edema, fatigue, fever, joint pain, nail changes, rhinorrhea, shortness of breath, sore throat or vomiting. Treatments tried: muporicin. The treatment provided no relief. There is no history of allergies, asthma, eczema or varicella. PAST MEDICAL HISTORY No date: Irritable bowel syndrome PAST SURGICAL HISTORY No date: NONE ALLERGIES Paxil [Paroxetine Hcl] MEDICATIONS FLUoxetine (PROZAC) 20 mg capsule take 1 capsule by mouth once daily MULTIVITAMIN ORAL Take by mouth. cephALEXin (KEFLEX) 500 mg capsule Take 1 capsule by mouth four times daily for 7 days. No family history on file. Social History Tobacco Use Smoking status: Never Smokeless tobacco: Never Substance Use Topics Alcohol use: No Drug use: No Review of Systems Constitutional: Negative for fatigue and fever. HENT: Negative for congestion, rhinorrhea and sore throat. Eyes: Negative for pain. Respiratory: Negative for apnea, cough, chest tightness and shortness of breath. Cardiovascular: Negative for chest pain, palpitations and leg swelling. Gastrointestinal: Negative for anorexia, diarrhea and vomiting. Musculoskeletal: Negative for joint pain. Skin: Positive for rash. Negative for nail changes. Allergic/Immunologic: Negative for environmental allergies, food allergies and immunocompromised state. Neurological: Negative for dizziness, facial asymmetry and headaches. Hematological: Negative for adenopathy. Does not bruise/bleed easily. Psychiatric/Behavioral: Negative for agitation and behavioral problems. Objective BP 157/68 Pulse 66 Temp 36.4 C (97.6 F) Resp 18 Wt 87 kg (191 lb 12.8 oz) SpO2 100% BMI 29.17 kg/m Physical Exam Vitals and nursing note reviewed. Constitutional: General: He is not in acute distress. Appearance: Normal appearance. He is not ill-appearing, toxic-appearing or diaphoretic. HENT: Head: Normocephalic and atraumatic. Right Ear: External ear normal. Left Ear: External ear normal. Nose: Nose normal. No congestion or rhinorrhea. Mouth/Throat: Mouth: Mucous membranes are moist. Pharynx: Oropharynx is clear. No oropharyngeal exudate or posterior oropharyngeal erythema. Eyes: General: Right eye: No discharge. Left eye: No discharge. Extraocular Movements: Extraocular movements intact. Conjunctiva/sclera: Conjunctivae normal. Pupils: Pupils are equal, round, and reactive to light. Cardiovascular: Rate and Rhythm: Normal rate and regular rhythm. Pulses: Normal pulses. Heart sounds: Normal heart sounds. No murmur heard. No friction rub. No gallop. Pulmonary: Effort: Pulmonary effort is normal. No respiratory distress. Breath sounds: Normal breath sounds. No stridor. No wheezing, rhonchi or rales. Chest: Chest wall: No tenderness. Abdominal: General: Abdomen is flat. There is no distension. Palpations: Abdomen is soft. There is no mass. Tenderness: There is no abdominal tenderness. There is no guarding or rebound. Hernia: No hernia is present. Musculoskeletal: General: No swelling, tenderness, deformity or signs of injury. Normal range of motion. Cervical back: Normal range of motion and neck supple. No rigidity or tenderness. Right lower leg: No edema. Left lower leg: No edema. Lymphadenopathy: Cervical: No cervical adenopathy. Skin: General: Skin is warm and dry. Capillary Refill: Capillary refill takes less than 2 seconds. Coloration: Skin is not jaundiced or pale. Findings: Erythema and rash present. No bruising or lesion. Comments: Left chin region with x 3 honey crusted, non tender, non streaking areas. X 1 with oozing. Similar are to nape of neck Bilateral lower extremities with similar, but smaller Neurological: General: No focal deficit present. Mental Status: He is alert and oriented to person, place, and time. Cranial Nerves: No cranial nerve deficit. Sensory: No sensory deficit. Motor: No weakness. Coordination: Coordination normal. Gait: Gait normal. Deep Tendon Reflexes: Reflexes normal. Psychiatric: Mood and Affect: Mood normal. Behavior: Behavior normal. Thought Content: Thought content normal. Assessment and Plan ASSESSMENT/PLAN: 1. Impetigo - ICD9: 684, ICD10: L01.00 X 2 to 3 weeks Endorses daughter has impetigo as well - Systemic treatment with Cephalaxin (Keflex) - Skin care and contagious disease precautions discussed - Follow up if symptoms persist or fail to resolve - Can use Mupirocin cream Nate Zelaya APRN.PAUL documented in this encounter [facility] 01-29-2022 Miscellaneous Notes Last appointment: 05-23-21 Next appointment: mario Pharmacy verified in [facility]. Refill(s) requested: Requested Prescriptions Pending Prescriptions Disp Refills FLUoxetine (PROZAC) 20 mg capsule [Pharmacy Med Name: FLUOXETINE HCL 20 MG CAPSULE] 30 capsule 0 Sig: take 1 capsule by mouth once daily Order(s) pended. Please advise. Radha Rao MA, COMMERCIAL LEASING AGENT documented in this encounter [facility] 01-02-2022 Miscellaneous Notes 1st attempt, left VM Looks like patient was due for a 6 month follow up in November. Please call patient and assist in scheduling. Will refill 30 days until seen in office. Pharmacy verified in Epic Patient has been identified by name and date of : Yes Patient aware RX will be sent to pharmacy. No need to notify patient. Patient phones for refill(s): Requested Prescriptions Pending Prescriptions Disp Refills FLUoxetine (PROZAC) 20 mg capsule [Pharmacy Med Name: FLUOXETINE HCL 20 MG CAPSULE] 90 capsule Sig: take 1 capsule by mouth once daily Date of last office visit : 05/23/2021 Date of next office visit : Visit date not found Last 2 Encounter Wt Readings: Date: Wt: 05/23/2021 81 kg (178 lb 9.6 oz) 04/23/2021 81.7 kg (180 lb 3.2 oz) Not applicable Please advise. Carlota Garcia LPN documented in this encounter [facility] Evaluation + Plan note No data available for this section [facility] Evaluation note Diagnosis GARFIELD (generalized anxiety disorder) Generalized anxiety disorder [facility] GARFIELD (generalized anxiety disorder) Generalized anxiety disorder [facility] noteNo assessment information availableWKindred Hospital [facility] Work Phone: Evaluation note* Diagnosis Impetigo- Primary [facility] No data available for this section [facility] Reason for referral (narrative)No reason for referral information availableWKindred Hospital [facility] Work Phone: Summary Purpose Family History No Family History Records Found Relationship Condition Age at Onset Recorded Date/T lashon father Diabetes mellitus Unknown Advance Directives No Advanced Directives Records Found Advance Directive Response Recorded Date/ Time Living Will Yes February 06, 2021 2:18pm Power of Assembly Line Inspector Yes January 2:18pm Advance Directive Response Recorded Date/ Time Living Will Yes February 06, 2021 1:18pm Power of Assembly Line Inspector Yes January 1:18pm Chief Complaint and Reason for Visit Chief Complaint cough Chief Complaint cough EORDER Additional Source Comments (unrecognized sect ion and content) No Status Records FoundNo Status Records FoundNo Status Records Found INFORMATION SOURCE (unrecogn ized section and content) DATE CREATED AUTHOR 04/09/2021 [facility] ([place]) DATE CREATED AUTHOR AUTHOR'S ORGANIZ ATION 01/13/2024 [facility] DATE CREATED AUTHOR AUTHOR'S ORGANIZ ATION 12/18/2024 [facility] Source Comments (unrecognize d section and content) In the event this informatio n is protected by the Federal Confidentiality of Alcohol and Drug Abuse Patient Records regulations: The Federal rules restrict any use of the information to criminally investigate or prosecute any alcohol or drug abuse patient.[facility] the event this information is protected by the Federal Confidentiality of Alcohol and Drug Abuse Patient Records regulations: The Federal rules restrict any use of the information to criminally investigate or prosecute any alcohol or drug abuse patient.[facility] the event this information is protected by the Federal Confidentiality of Alcohol and Drug Abuse Patient Records regulations: The Federal rules restrict any use of the information to criminally investigate or prosecute any alcohol or drug abuse patient.[facility] Reason for Visit (unrecogniz ed section and content) Reason Comments Refill Request Reason Comments Rash States daughter had impetigo, he states he has on bilat knee, face, hands, head x weeks Care Teams (unrecognized sec tion and content) Instructional Developer Relationship Specialty Start Date End Date Mellisa Schultz MD [address], [place] [phone] PCP - General 03/30/09 Instructional Developer Relationship Specialty Start Date End Date Mellisa Schultz MD [address] [place], [place] [id number] PCP - General 03/30/09 Team Status: Active Member Role Status Dates No Primary Care Physician Family Provider Active Dr. Edu Roy MD Primary Care Provider Active Team Status: Inactive Member Role Status Dates Dr. Edu Roy MD Primary Care Pr ovider, Attending Provider, Referring Provider Active Team Status: Inactive Member Role Status Dates Jaleesa Sweeney MD Attending Provider, Referring Provide r Active Dr. Edu Roy MD Primary Care Provider Active Instructional Developer Relationship Specialty Start Date End Date Mellisa Schultz MD [address] [place] [id number] PCP - General 03/30/09 Team Status: Active Member Role/Relationship Status Dates No Primary Care Physician Family Provider Active Dr. Edu Roy MD Primary Care Provider Active Team Status: Inactive Member Role/Relationship Status Dates Dr. Edu Roy MD Primary Care Provider Active Start: December 08, 2024 End: December 08, 2024 Dr. Edu Roy MD Attending Provider Active Start: December 08, 2024 End: December 08, 2024 Dr. Edu Roy MD Referring Provider Active Start: December 08, 2024 End: December 08, 2024 Goals (unrecognized section and content) Goals may be documented in a n alternate section FOR RECORDS PERTAINING TO PATIENTS WHO ARE OR HAVE BEEN ENROLLED IN A CHEMICAL DEPENDENCY/SUBSTANCEABUSE PROGRAM, SOME INFORMATION MAY BE OMITTED. This clinical summary was aggregated from multiple sources. Caution should be exercised in using it in the provision of clinical care. This summary normalizes information from multiple sources, and as a consequence, information in this document may materially change the coding, format and clinical context of patient data. In addition, data may be omitted in some cases. CLINICAL DECISIONS SHOULD BE BASED ON THE PRIMARY CLINICAL RECORDS. [employer] provides no warranty or guarantee of the accuracy or completeness of information in this document.
[2025-04-07 08:06] LABS: Hematocrit 44.8 % (40-54); Hemoglobin 14.9 g/dL (13.0-16.5); Immature Granulocytes Count 0.020 X10^3/uL (0.0-0.0); Mean Corp Hgb Conc 33.3 g/dL (32-36); Mean Corpuscular Volume 82.1 fL (80-94); Mean Platelet Vol. 11.1 fl (6.2-12.0); NRBC Flagged by Analyzer 0 % (0-5); Platelet Count 205 K/mm3 (150-450); RBC Distribution Width CV 13.2 % (11.6-14.6); RBC Distribution Width SD 39.4 fl (35.1-43.9); Red Blood Count 5.46 M/mm3 (4.6-6.2); White Blood Count 7.4 K/mm3 (4.4-11.0)
[2025-04-07 08:43] LABS: AST(SGOT) 25 U/L (<=37); Alanine Aminotransfer ALT/SGPT 32 U/L (<=46); Albumin, Serum 4.5 g/dL (3.5-5.0); Alkaline Phosphatase 46 U/L (40-129); Anion Gap 11 (5-15); BUN 24 mg/dL (4-19); BUN/Creat Ratio 25.6 RATIO (10-20); Calcium,Total 9.5 mg/dL (7.6-11.0); Carbon Dioxide 25.6 mmol/L (21.0-32.0); Chloride 100 mmol/L (98-108); Cholesterol 268 mg/dL (<=200); Globulin 3.0 g/dL (2.2-4.2); Glucose 102 mg/dL (70-99); Low Density Lipoprotein Calc. 203 mg/dL; PSA,Total - Annual Screen 1.35 ng/mL (0.02-4.00); Potassium 4.0 mmol/L (3.3-5.1); Triglycerides 116 mg/dL; Very Low Density Lipoprotein 23 mg/dL (5-40); cholesterol:hdl ratio screen 6.13
== END | disposition home or self-care (01) ==
LOC: LAB 07:23
PROVIDERS: PCP Family Medicine; Referring Provider Family Medicine; Visit Provider Family Medicine
DX: Z00.00 Encounter for general adult medical examination without abnormal findings (principal); R73.02 Impaired glucose tolerance (oral); Z13.220 Encounter for screening for lipoid disorders
CPT/HCPCS: 36415; 80053; 80061; 83036; 84153; 85025; G0103

== ENCOUNTER → 2025-05-08 | Outpatient (CLI) | payer OTHER, SELFPAY ==
--- NOTE | 2025-05-08 12:45 | RAD_ITS ---
PROCEDURE: CHEST PA AND LATERAL 05/08/2025 REASON FOR EXAM: COUGH TECHNIQUE: Procedure Code: RADCXR Modality: DX Procedure: CHEST PA AND LATERAL FINDINGS: Diffuse reticular opacities may reflect pulmonary interstitial edema versus atypical pneumonia. No focal consolidation. No pleural effusion or pneumothorax. Cardiac silhouette is within normal limits. No acute fractures. RAD/Chest PA and Lateral IMPRESSION: Diffuse reticular opacities may reflect pulmonary interstitial edema versus aty pical pneumonia. Reading Location: [facility]
== END | disposition home or self-care (01) ==
LOC: MTRAD 12:45
PROVIDERS: PCP Family Medicine; Referring Provider Nurse Practitioner Family; Visit Provider Nurse Practitioner Family
DX: R05.9 Cough, unspecified (principal)
CPT/HCPCS: 71046